=== PATIENT | female | born 1985 | race Caucasian/White ===

== ENCOUNTER 2016-04-15 11:59 | Inpatient (IN) | payer MEDICAID, OTHER ==
--- NOTE | 2016-04-15 12:39 | ED ---
Psychiatric Complaint - HPI Summary HPI Summary: Patient arrives to ED with voluntary admission of current SI and plan. Patient experiencing SI for several years with previous attempts with heroin OD most recently october and nov of last year. Today, SI are present with plans for suicide which include overdose or drowning. States she would likely take motrin for the OD. States she is experiencing knee pain with no known trauma. Would like Motrin. Stressors in her life have increased and was recently paroled from jail. Hep C positive, otherwise healthy. Smoker. Last use last evening includes heroin and cocaine. Last alcohol use "several months ago."Eating and drinking OK. Currently has no PCP or counselor. - History Of Current Complaint Chief Complaint: EDMentalHealth Hx Obtained From: Patient Hx Last Menstrual Period: 07/29/13 ?: No Onset/Duration: Gradual Onset Timing: Constant Severity Initially: Severe Severity Currently: Moderate Character: Depressed, Fearful, Anxious Aggravating Factor(s): Recent Stress Alleviating Factor(s): Nothing Related History: Positive For: Prior Psychiatric Issues - previous OD's Has Suicidal: Reports: Thoughts, With A Plan, Has Prior Attempt(s) - OD - Risk Factor(s) Completed Suicide Risk Factors: White [place], Living Alone, Unemployed, Past Suicide Attempt - Allergies/Home Medications Allergies/Adverse Reactions: Allergies Allergy/AdvReac Type Severity Reaction Status Date / Time No Known Allergies Allergy Verified 04/15/16 19:14 PMH/Surg Hx/FS Hx/Imm Hx Previously Healthy: Yes - Hep C positive Endocrine/Hematology History: Denies: Hx Diabetes, Hx Thyroid Disease, Hx Anemia Cardiovascular History: Denies: Hx Congestive Heart Failure, Hx Hypertension, Hx Pacemaker/ICD Respiratory History: Denies: Hx Asthma, Hx Chronic Bronchitis - had bronchitis twice, Hx Chronic Obstructive Pulmonary Disease (COPD) GI History: Reports: Other GI Disorders - Takes Protonix Denies: Hx Ulcer History: Reports: Hx Kidney Infection - at age 15 or so, not in years Denies: Hx Renal Disease Comment Only: Other Problems/Disorders - Recent UTI Musculoskeletal History: Reports: Other Musculoskeletal History - knees and foot have cartilage problems Sensory History: Reports: Hx Contacts or Glasses - a little nearsighted Denies: Hx Hearing Aid Opthamlomology History: Reports: Hx Contacts or Glasses - a little nearsighted Psychiatric History: Reports: Hx Attention Deficit Hyperactivity Disorder, Hx Depression, Hx Post Traumatic Stress Disorder, Hx Inpatient Treatment - Pt came from a dual diag facility as SW understands, Hx Substance Abuse Denies: Hx Eating Disorder, Hx Panic Disorder, Hx Suicide Attempt, Hx of Violent Episodes Against Others Infectious Disease History: Yes Infectious Disease History: Reports: Hx Hepatitis - type C Denies: Hx Human Immunodeficiency Virus (HIV), Traveled Outside the [place] in Last 30 Days - Family History Family History: PT IS UNRESPONSIVE - CANNOT STATE HISTORY - Social History Occupation: Unemployed Lives: Alone Alcohol Use: None Alcohol Amount: none that pt reports Substance Use Type: Reports: Cocaine, Heroin Substance Use Comment - Amount & Last Used: 1 week ago pt used "speed" Smoking Status (MU): Light Every Day Tobacco Smoker Type: Cigarettes Amount Used/How Often: 1/2 pack a day, formerly more Length of Time of Smoking/Using Tobacco: 13 years Have You Smoked in the Last Year: Yes Review of Systems Constitutional: Negative Eyes: Negative ENT: Negative Cardiovascular: Negative Respiratory: Negative Positive: Abdominal Pain - no known cause - chronic - worse when experiencing depression. Positive: Arthralgia - right knee pain Skin: Negative Positive: Headache - intermittent Positive: Anxious, Depressed All Other Systems Reviewed And Are Negative: Yes Physical Exam Triage Information Reviewed: Yes Vital Signs On Initial Exam: Initial Vitals Temp Pulse Resp BP Pulse Ox 96.8 F 76 20 118/80 100 04/15/16 12:00 04/15/16 12:00 04/15/16 12:00 04/15/16 12:00 04/15/16 12:00 Vital Signs Reviewed: Yes Appearance: Positive: Well-Appearing, No Pain Distress, Well-Nourished Skin: Positive: Warm, Dry Head/Face: Positive: Normal Head/Face Inspection, Temporal Artery Tenderness Eyes: Positive: Normal, EOMI, YOLANDA ENT: Positive: Normal ENT inspection, Hearing grossly normal, Pharynx normal, TMs normal Neck: Positive: Supple, Nontender, No Lymphadenopathy Respiratory/Lung Sounds: Positive: Clear to Auscultation, Breath Sounds Present Cardiovascular: Positive: Normal Abdomen Description: Positive: Nontender Musculoskeletal: Positive: Limited @ - right knee flexion - baseline per patient Psychiatric: Positive: Normal AVPU Assessment: Alert Diagnostics - Vital Signs Vital Signs Temp Pulse Resp BP Pulse Ox 04/15/16 12:00 96.8 F 76 20 118/80 100 - Laboratory Result Diagrams: 04/15/16 14:33 04/15/16 14:33 Lab Statement: Any lab studies that have been ordered have been reviewed, and results considered in the medical decision making process. Course/Dx - Differential Dx/Clinical Impression Differential Diagnosis/HQI/PQRI: Positive: Anxiety, Depression, Suicide Attempt , Suicidal Ideation, Suicidal Gesture Provider Diagnosis: Depression (emotion) Discharge - Discharge Plan Condition: Stable Disposition: ADMITTED TO [facility]
[2016-04-15] MEDS ORDERED: Naproxen TAB* 250 MG PO ONE (12:47)
[2016-04-15 14:41] LABS: Hematocrit 41 % (35-47); Hemoglobin 13.6 g/dl (12.0-16.0); Mean Corpuscular HGB Conc 33 g/dl (31-36); Mean Corpuscular Hemoglobin 32 pg (27-31); Mean Corpuscular Volume 96 fL (80-97); Mean Platelet Volume 9 um3 (7.4-10.4); Red Blood Count 4.28 10^6/ul (4.0-5.4); Red Cell Distribution Width 12 % (10.5-15); White Blood Count 12.2 10^3/ul (3.5-10.8)
[2016-04-15 14:59] LABS: ALT 44 U/L (7-52); AST 35 U/L (13-39); Alkaline Phosphatase 71 U/L (34-104); Anion Gap 9 mmol/L (2-11); Blood Urea Nitrogen 9 mg/dL (6-24); CO2 Carbon Dioxide 21 mmol/L (22-32); Calcium 9.2 mg/dL (8.6-10.3); Chloride 103 mmol/L (101-111); EGFR African American 127.6 (>60); EGFR Non-African American 99.2 (>60); Globulin 3.3 g/dL (2-4); Glucose 108 mg/dL (70-100); Potassium 3.6 mmol/L (3.5-5.0); Sodium 133 mmol/L (133-145); Total Protein 7.3 g/dL (6.4-8.9)
[2016-04-15 15:19] LABS: Acetaminophen < 15 mcg/mL; Alcohol < 10 mg/dL (<10); Salicylate < 2.50 mg/dL (<30)
[2016-04-15 15:30] LABS: Urine Bacteria Absent (Absent); Urine Bilirubin Negative (Negative); Urine Glucose Negative (Negative); Urine Nitrite Negative (Negative)
[2016-04-15 15:37] LABS: Benzodiazepine Urine Screen None Detected (None Detect)
[2016-04-15] MEDS ORDERED: Mouth Piece, Nicotine* 1 EACH CARTRIDGE ONE (16:05)
[2016-04-15] MEDS ORDERED: Nicotine Inhaler* 10 MG AMP ONE (16:05)
[2016-04-15] MEDS ORDERED: Acetaminophen TAB* 325 MG PO PRN (19:19)
[2016-04-15] MEDS ORDERED: Al Hydrox/Mg Hydrox/Simet LIQ* 30 ML UDC PO PRN (19:19)
[2016-04-15] MEDS ORDERED: Mouth Piece, Nicotine* 1 EACH CARTRIDGE INH ONE (20:00)
[2016-04-16] MEDS ORDERED: Loperamide CAP* 4 MG INITIAL PRN DOSE PO ONE (09:00)
[2016-04-16] MEDS ORDERED: ACETAMINOPHEN 650 MG PO (09:00)
[2016-04-16] MEDS ORDERED: Loperamide CAP* 2 MG AFTER EACH LOOSE STOOL MDD 16 MG PO PRN (09:00)
[2016-04-16] MEDS ORDERED: Q4H PRN PO (09:00)
[2016-04-16] MEDS: Vitamin THERAPEUTIC TAB PO SCH (09:40)
[2016-04-16] MEDS: Multivitamins/Minerals TAB* DAILY PO SCH (12:03)
[2016-04-16] MEDS: Carisoprodol TAB* 350 MG Q6H PRN PO ×2 (12:07→18:19)
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
[2016-04-16] MEDS ORDERED: Gabapentin CAP(*) 300 MG PO ONE (16:00)
[2016-04-16] MEDS: Gabapentin CAP(*) 300 MG PO SCH ×2 (16:19→20:59)
[2016-04-16] MEDS: FLUoxetine CAP* 20 MG PO SCH (16:19)
[2016-04-16] MEDS: Ibuprofen TAB* 400 MG Q6H PRN PO (16:20)
[2016-04-16] MEDS: diPHENhydraMINE PO* 50 MG PO PRN (21:00)
[2016-04-17] MEDS: Gabapentin CAP(*) 300 MG PO SCH ×3 (08:25→20:14)
[2016-04-17] MEDS: FLUoxetine CAP* 20 MG PO SCH (08:25)
[2016-04-17] MEDS: Multivitamins/Minerals TAB* DAILY PO SCH (08:25)
[2016-04-17] MEDS: Nicotine Inhaler* 10 MG AMP INH PRN (08:27)
[2016-04-17] MEDS: Carisoprodol TAB* 350 MG Q6H PRN PO ×3 (08:27→21:12)
[2016-04-17] MEDS: Ibuprofen TAB* 400 MG Q6H PRN PO ×2 (08:28→21:12)
[2016-04-17] MEDS: Nicotine GUM* 2 MG PO PRN ×3 (12:27→21:14)
[2016-04-17] MEDS: Vitamin THERAPEUTIC TAB PO SCH (13:20)
[2016-04-17] MEDS: diPHENhydraMINE PO* 50 MG PO PRN (20:16)
[2016-04-18] MEDS: FLUoxetine CAP* 20 MG PO SCH (08:24)
[2016-04-18] MEDS: Gabapentin CAP(*) 300 MG PO SCH (08:24)
[2016-04-18] MEDS: Vitamin THERAPEUTIC TAB PO SCH (08:24)
[2016-04-18] MEDS: Nicotine GUM* 2 MG PO PRN ×4 (08:24→21:44)
[2016-04-18] MEDS: Carisoprodol TAB* 350 MG Q6H PRN PO ×3 (08:25→20:38)
[2016-04-18] MEDS: Multivitamins/Minerals TAB* DAILY PO SCH (08:25)
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
[2016-04-18] MEDS: Ibuprofen TAB* 400 MG Q6H PRN PO ×2 (13:03→20:39)
[2016-04-18] MEDS: Gabapentin CAP(*) 400 MG PO SCH ×2 (14:31→20:38)
[2016-04-18] MEDS: Nicotine Inhaler* 10 MG AMP INH PRN (17:53)
[2016-04-18] MEDS: diPHENhydraMINE PO* 50 MG PO PRN (20:37)
[2016-04-19] MEDS: Nicotine GUM* 2 MG PO PRN ×2 (04:56→08:33)
[2016-04-19] MEDS: Nicotine Inhaler* 10 MG AMP INH PRN (08:32)
[2016-04-19] MEDS: Vitamin THERAPEUTIC TAB PO SCH (08:33)
[2016-04-19] MEDS: Gabapentin CAP(*) 400 MG PO SCH (08:33)
[2016-04-19] MEDS: FLUoxetine CAP* 20 MG PO SCH (08:33)
[2016-04-19] MEDS: Multivitamins/Minerals TAB* DAILY PO SCH (08:33)
[2016-04-19] MEDS: Carisoprodol TAB* 350 MG Q6H PRN PO (08:33)
[2016-04-19 09:37] VITALS: BP 122/70
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
--- NOTE | 2016-04-19 13:06 | PN ---
[facility]: Group Therapy Note - Service Type Service Type: 93514 Group Psychotherapy - Cognitive Behavioral Group Therapy ( CBT):Patient was attentive and participatory in CBT programming this morning, and remained in good behavioral control. Patient expressed positive insights regarding relevant treatment interventions and goals.
== END 2016-04-19 13:00 | DRG 773 ==
LOC: ED 11:59 → BSU 19:04
PROVIDERS: ADMIT Psychiatry & Neurology Psychiatry; ATTEND Psychiatry & Neurology Psychiatry
DX: F11.24 Opioid dependence with opioid-induced mood disorder (principal); F11.23 Opioid dependence with withdrawal
CPT/HCPCS: 36415; 80053; 80307; 80320; 80329; 81003; 81015; 84443; 85025; 87086; 90853; 99222; 99231; 99238; A9270-GY; G0480

== ENCOUNTER 2016-07-25 11:12 | Emergency (ER) | payer MEDICAID ==
[2016-07-25] MEDS ORDERED: NS 0.9% 1000 ML* 1,000 ML IV ONE (13:30)
[2016-07-25 13:59] LABS: Hematocrit 41 % (35-47); Hemoglobin 13.7 g/dl (12.0-16.0); Mean Corpuscular HGB Conc 34 g/dl (31-36); Mean Corpuscular Hemoglobin 31 pg (27-31); Mean Corpuscular Volume 92 fL (80-97); Mean Platelet Volume 8 um3 (7.4-10.4); Red Blood Count 4.44 10^6/ul (4.0-5.4); Red Cell Distribution Width 16 % (10.5-15); White Blood Count 10.9 10^3/ul (3.5-10.8)
[2016-07-25 14:16] LABS: ALT 13 U/L (7-52); AST 20 U/L (13-39); Albumin 3.9 g/dL (3.2-5.2); Alkaline Phosphatase 85 U/L (34-104); Amylase 93 U/L (29-103); Anion Gap 9 mmol/L (2-11); BUN/Creatinine Ratio 13.5 (8-20); Blood Urea Nitrogen 10 mg/dL (6-24); C Reactive Protein < 1.00 mg/L (< 5.00); CO2 Carbon Dioxide 24 mmol/L (22-32); Calcium 9.1 mg/dL (8.6-10.3); Chloride 105 mmol/L (101-111); Globulin 3.4 g/dL (2-4); Glucose 90 mg/dL (70-100); Lipase 31 U/L (11.0-82.0); Potassium 3.8 mmol/L (3.5-5.0); Sodium 138 mmol/L (133-145); Total Protein 7.3 g/dL (6.4-8.9)
[2016-07-25 14:18] LABS: Urine Bacteria 3+ (Absent); Urine Bilirubin Negative (Negative); Urine Glucose Negative (Negative); Urine Nitrite Positive (Negative)
[2016-07-25] MEDS ORDERED: Morphine INJ* 2 MG/ML 1 ML SYRINGE IV ONE (14:18)
[2016-07-25] MEDS ORDERED: Ondansetron INJ* 2 MG/ML VIAL IV ONE (14:18)
[2016-07-25] MEDS ORDERED: Ciprofloxacin TAB* 500 MG PO ONE (14:21)
--- NOTE | 2016-07-25 14:25 | ED ---
Abdominal Pain/Female - HPI Summary HPI Summary: Patient is a poor historian but essentially reports she had pain with intercourse 1.5 weeks ago, so [facility] went to [facility] where her pelvic exam was negative and tests were performed. She was placed on medication due to discharge and odor. At that time she had minimal vaginal bleeding, but since that time it has increased. Yesterday she used 4-5 super tampons. She feels that her appetite is decreased due to her pain. In addition to the bleeding she has suprapubic and RLQ abdominal pain that does not radiate. She denies urinary symptoms, diarrhea, constipation, or fevers. She has not been in contact with her PCP, Dr. Love. - History of Current Complaint Chief Complaint: EDOBProblems Stated Complaint: PELVIC PAIN/VAG BLEED Time Seen by Provider: 07/25/16 13:10 Hx Obtained From: Patient Hx Last Menstrual Period: 07/29/13 ?: No Onset/Duration: Gradual Onset Timing: Constant Severity Initially: Moderate Severity Currently: Severe Pain Intensity: 8 Location: Discrete At: RLQ, Suprapubic Radiates: No Character: Cramping Aggravating Factor(s): Nothing Alleviating Factor(s): Nothing Associated Signs and Symptoms: Positive: Decreased Appetite, Vaginal Bleeding Allergies/Adverse Reactions: Allergies Allergy/AdvReac Type Severity Reaction Status Date / Time No Known Allergies Allergy Verified 04/15/16 19:14 PMH/Surg Hx/FS Hx/Imm Hx Endocrine/Hematology History: Denies: Hx Diabetes, Hx Thyroid Disease, Hx Anemia Cardiovascular History: Denies: Hx Congestive Heart Failure, Hx Hypertension, Hx Pacemaker/ICD Respiratory History: Denies: Hx Asthma, Hx Chronic Bronchitis - had bronchitis twice, Hx Chronic Obstructive Pulmonary Disease (COPD) GI History: Reports: Other GI Disorders - Takes Protonix Denies: Hx Ulcer History: Reports: Hx Kidney Infection - at age 15 or so, not in years Denies: Hx Renal Disease Comment Only: Other Problems/Disorders - Recent UTI Musculoskeletal History: Reports: Other Musculoskeletal History - knees and foot have cartilage problems Sensory History: Reports: Hx Contacts or Glasses - a little nearsighted Denies: Hx Hearing Aid Opthamlomology History: Reports: Hx Contacts or Glasses - a little nearsighted Psychiatric History: Reports: Hx Attention Deficit Hyperactivity Disorder, Hx Depression, Hx Post Traumatic Stress Disorder, Hx Inpatient Treatment - Pt came from a dual diag facility as SW understands, Hx Substance Abuse Denies: Hx Eating Disorder, Hx Panic Disorder, Hx Suicide Attempt, Hx of Violent Episodes Against Others Infectious Disease History: No Infectious Disease History: Reports: Hx Hepatitis - type C Denies: Hx Human Immunodeficiency Virus (HIV), Traveled Outside the [place] in Last 30 Days - Family History Known Family History: Positive: None Family History: PT IS UNRESPONSIVE - CANNOT STATE HISTORY - Social History Occupation: Unemployed Lives: With Family Alcohol Use: None Alcohol Amount: none that pt reports Substance Use Type: Reports: Cocaine, Heroin Substance Use Comment - Amount & Last Used: 1 week ago pt used "speed" Smoking Status (MU): Light Every Day Tobacco Smoker Type: Cigarettes Amount Used/How Often: 1/2 pack a day, formerly more Length of Time of Smoking/Using Tobacco: 13 years Have You Smoked in the Last Year: Yes Cessation Counseling: Patient Advised to Stop Review of Systems Negative: Fever, Chills Negative: Chest Pain Negative: Shortness Of Breath Positive: Abdominal Pain. Negative: Vomiting, Diarrhea, Nausea Positive: no symptoms reported All Other Systems Reviewed And Are Negative: Yes Physical Exam Triage Information Reviewed: Yes Vital Signs On Initial Exam: Initial Vitals Temp Pulse Resp BP Pulse Ox 97.4 F 123 16 129/78 100 07/25/16 11:19 07/25/16 11:19 07/25/16 11:19 07/25/16 11:19 07/25/16 11:19 Vital Signs Reviewed: Yes Appearance: Positive: Well-Appearing, Well-Nourished, Pain Distress Skin: Positive: Warm, Skin Color Reflects Adequate Perfusion, Dry, Soft Head/Face: Positive: Normal Head/Face Inspection Eyes: Positive: EOMI, YOLANDA, Conjunctiva Clear ENT: Positive: Hearing grossly normal Respiratory/Lung Sounds: Positive: Clear to Auscultation, Breath Sounds Present Cardiovascular: Positive: RRR - on exam Abdomen Description: Positive: Soft. Negative: Nontender - TTP RLQ and suprapubic, CVA Tenderness (R), CVA Tenderness (L), Distended, Guarding, McBurney's Point Tenderness, Pulsatile Mass Bowel Sounds: Positive: Present Musculoskeletal: Negative: Edema Left, Edema Right Neurological: Positive: Sensory/Motor Intact, Alert, Oriented to Person Place, Time, [place] Bundle Intact Distally, Normal Gait Psychiatric: Positive: Affect/Mood Appropriate AVPU Assessment: Alert - [place] Coma Scale Coma Scale Total: 15 Diagnostics - Vital Signs Vital Signs Temp Pulse Resp BP Pulse Ox 07/25/16 12:07 98.2 F 66 16 135/84 100 07/25/16 11:22 97.4 F 58 16 129/78 100 07/25/16 11:19 97.4 F 123 16 129/78 100 - Laboratory Lab Results: Lab Results 07/25/16 07/25/16 Range/Units 13:48 13:48 WBC 10.9 H (3.5-10.8) 10^3/ul RBC 4.44 (4.0-5.4) 10^6/ul Hgb 13.7 (12.0-16.0) g/dl Hct 41 (35-47) % MCV 92 (80-97) fL MCH 31 (27-31) pg MCHC 34 (31-36) g/dl RDW 16 H (10.5-15) % Plt Count 299 (150-450) 10^3/ul MPV 8 (7.4-10.4) um3 Neut % (Auto) 48.9 (38-83) % Lymph % (Auto) 40.2 (25-47) % [place] % (Auto) 9.7 H (1-9) % Eos % (Auto) 0.8 (0-6) % Baso % (Auto) 0.4 (0-2) % Absolute Neuts (auto) 5.3 (1.5-7.7) 10^3/ul Absolute Lymphs (auto) 4.4 (1.0-4.8) 10^3/ul Absolute Monos (auto) 1.1 H (0-0.8) 10^3/ul Absolute Eos (auto) 0.1 (0-0.6) 10^3/ul Absolute Basos (auto) 0 (0-0.2) 10^3/ul Absolute Nucleated RBC 0 10^3/ul Nucleated RBC % 0 INR (Anticoag Therapy) 0.77 L (0.89-1.11) Result Diagrams: 07/25/16 13:48 07/25/16 13:48 Lab Statement: Any lab studies that have been ordered have been reviewed, and results considered in the medical decision making process. - Ultrasound No standard instances Ultrasound Interpretation: No Acute Changes Ultrasound Interpretation Completed By: Radiologist Re-Evaluation - Re-Evaluation First Eval Re-Evaluation Time: 15:10 Change: Improved - pain improved and patient is asking for food Abdominal Pain Fem Course/Dx - Course Course Of Treatment: The patient's tests are negative for acute changes. She will be treated for her UTI and referred to her [facility] for follow-up care for her vaginal bleeding. While at this appointment she asked for a refill of her gabapentin, which I referred her back to the prescribing physician. She also asked for a muscle relaxer for her abdominal cramps, which I declined to fill, but did prescribe naproxen for pain. - Diagnoses Differential Diagnosis: Positive: Appendicitis, Bowel Obstruction, Ectopic , Ovarian Cyst, Pelvic Inflammatory Disease, , Urinary Tract Infection Provider Diagnoses: UTI (urinary tract infection), Vaginal bleeding Discharge - Discharge Plan Condition: Stable Disposition: HOME Prescriptions: Naproxen [Naproxen 500 MG TABS] 500 mg PO BID PRN #10 tab PRN Reason: Pain Nicotine PATCH 14 MG/24 HR* 14 mg TRANSDERM DAILY #5 patch Ondansetron HCl [Zofran 4 MG TAB] 4 mg PO TID PRN #15 tab PRN Reason: Nausea Patient Education Materials: Dysfunctional Uterine Bleeding (ED) Additional Instructions: Call the provider who prescribed your control for an appointment in 1-2 days to discuss today's visits and your concerns. Use medication provided to help stop smoking, and to manage pain and nausea. Return to the emergency department if symptoms worsen.
--- NOTE | 2016-07-25 15:20 | RAD ---
Indication: Vaginal bleeding. Negative test. Comparison: November 08, 2013 CT and May 23, 2012 ultrasound. Technique: Transvaginal pelvic ultrasound. Report: Unremarkable 8.7 x 3.7 x 4.6 cm anteverted uterus. 1.9 mm endometrium. Negative for free pelvic fluid. 2.2 x 1.2 x 2.0 cm RIGHT ovary with documented vascular flow is remarkable for small follicles only. 2.5 x 1.0 x 1.6 cm LEFT ovary with documented vascular flow is remarkable for small follicles only. No visualized extra ovarian adnexal region lesions evident. IMPRESSION: Negative pelvic ultrasound.
[2016-07-25 15:58] VITALS: BP 132/80
== END 2016-07-25 15:57 | disposition home or self-care (01) ==
LOC: ED 11:12
DX: N39.0 Urinary tract infection, site not specified (principal); N93.9 Abnormal uterine and vaginal bleeding, unspecified; R10.31 Right lower quadrant pain; F17.210 Nicotine dependence, cigarettes, uncomplicated
CPT/HCPCS: 36415; 76830; 80053; 81003; 81015; 82150; 83690; 84702; 85025; 85610; 86140; 87077; 87086; 87186; 96374; 96375; 99282; A9270-GY; J2270; J2405

== ENCOUNTER 2017-05-24 08:28 | Emergency (ER) | payer OTHER ==
--- OUTSIDE RECORDS SUMMARY | 2017-05-24 08:36 | XMS REPORT ---
:1985 External Reference #:[id number] Author Organization [id number] Address [address] [address] Phone [phone] Care Team Providers Name Role Phone Vinod Washington MD Primary Care Physician Unavailable Payers Type Date Identification Numbers Payment Provider Subscriber Medicaid Policy Number: [id number] Medicaid Elias [employer]uns[employer] Name: 1 1 [address] PayID: [id number] [place] [address] Commercial Effective: 2016 Policy Number: [id number] Troy Lunsforderman PayID: [id number] [address] [place] [address] Problems Date Description Provider Status Onset: 05/05/2016 History of drug abuse Prasanna Michele NP Active Onset: 05/05/2016 Idiopathic peripheral neuropathy Prasanna Michele NP Active Onset: 05/05/2016 Depressive disorder Prasanna Michele NP Active Onset: 06/30/2016 Viral hepatitis C Janis Angel M.D., FACP Onset: 06/30/2016 Opioid dependence in remission Janis Angel M.D., FACP Onset: 08/01/2016 Vitamin B12 deficiency (non Vinod Washington Active anemic) RENATO Aly Onset: 09/15/2016 Attention deficit hyperactivity Vinod Washington, Active disorder, combined type RENATO Aly Onset: 09/15/2016 Light cigarette smoker (1-9 Vinod Washington, Active cigs/day) RENATO Aly Family History Date Family Member(s) Problem(s) Comments Father Lung Cancer Mother due to Stroke () Siblings 3 3 half-sibs Social History Type Date Description Comments Marital Status Significant Other Lives With Male Partner Occupation 12/26/2016 Currently Working [employer] Cigarette Use Current Cigarette Smoker 5-10 Cigarettes Daily ETOH Use Denies alcohol use Smoking Patient is a current Started age 15; Smokes smoker, smokes every day 1/2 ppd Recreational Drug Use Denies Drug Use Exercise Type/Frequency Exercises rarely General Hx Text no kids Allergies, Adverse Reactions, Alerts Date Description Reaction Status Severity Comments 05/02/2016 NKDA active Medications Medication Date Status Form Strength Qnty SIG Indications Ordering Provider Triamcinolone 04/21 Active Cream 0.1% 30gm apply every Acetonide day as needed emanuel Morales M.D.,FACP lesion Lamotrigine 04/21 Active Tablets 100mg 30tab 1 by mouth Dispers s every evening Shelley Washington M.D.,FACP Colace 04/21 Active Capsules 100mg 60cap 1 by mouth s twice a day Shelley Washington M.D.,FACP Nicotine 04/07 Active Gum 2mg 100un 1 piece every its 2 hours as SOPHIE Michele needed. Naproxen 04/07 Active Tablets 500mg 60tab 1 tablet with M25.50 s food by mouth Shelley Washington, up to twice a M.D.,FACP day as needed. Vistaril 04/07 Active Capsules 25mg 60cap 1-2 by mouth F41.9 Prasanna s four times Ryne 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 daily as needed anxiety/insomn ia Gabapentin 01/31 Active Capsules 300mg 120ca Take 1 Capsule G60.3 ps By Mouth Twice Shelley Washington, A Day Plus 2 M.D.,FACP At Bedtime Omeprazole 12/26 Active Capsules 20mg 90cap [address] fitzgerald every day Shelley Washington M.D.,FACP Suboxone 12/26 Active Film 8-2mg 28uni 1 strip sl ts twice day Shelley Washington M.D.,FACP Benzoyl 10/25 Active Gel 5% 90gm topical qd L70.0 /2017 Shelley Washington M.D.,[facility] Mupirocin 08/22 Active Cream 2% 15gm apply two A49.02 Vinod times daily to Shelley Washington, areas of [place] blister[facility] skin Cyanocobalamin 08/01 Active Solution 1000mcg/M 6ml 1 milliliters L intramuscular Shelley Washington, z9xuhko [place],[facility] Multivitamin 08/01 Active Tablets 30tab 1 by mouth Vinod s every day Shelley Washington M.D.,[facility] Lamotrigine 01/31 Hx Tablets 25mg 120ta 1 po qhs for 1 Vinod bs wk, then 2 qhs Shelley Washington, - for 1 wk, then MKoreyDKorey,[facility] 04/21 3 qhs, then qhs ongoing Nicotrol 01/31 Hx Inhaler 10mg 168un 1 cartridges its every 2 hours Shelley Washington, - as needed M.D.,[facility] 04/07 Sulfamethoxazol 12/01 Hx Tablets 800-160mg 10tab by mouth twice Debby Paz e/Trimethoprim s a day Shelley Washington DS - [place],[facility] 12/06 Bupropion HCL 10/17 Hx Tablets 100mg 60tab 1 by mouth Vinod ER (SR) ER 12HR s every morning Shelley Washington, - for 10 days, [place] 01/31 then take tablet by mouth every morning and one at noon [employer] 10/17 Hx Gel 0.025% 45gm apply every L70.0 night at Shelley Washington, - bedtime for 3 M.D.,[facility] 10/25 wks then needed Melatonin ER 09/23 Hx Tablets 5mg 30tab 1 by mouth G47.00 ER s every night at Shelley Washington, - bedtime M.DKorey,[facility] 10/17 Eszopiclone 09/15 Hx Tablets 2mg 20tab 1 tab by mouth G47.00 s every night at Shelley Washington, - bedtime as [place],[facility] 09/23 needed Doxycycline 08/22 Hx Capsules 100mg 14cap twice a day by A49.02 Debby Paz Hyclate /2016 s mouth Uche Morales M.D.,[facility] 08/29 Gabapentin 08/22 Hx Tablets 800mg 90tab take 1 tablet G60.3 s by mouth 3 Shelley Washington, - times a day [place],[facility] 01/31 Suboxone 08/01 Hx Film 12-3mg 10uni 1/2 strip sl ts once a day Uche Morales M.D.,[facility] 12/26 Gabapentin 06/30 Hx Tablets 600mg 150ta 1 by mouth 3 G60.3 bs times a day Shelley Washington - plus 2 qhs [place],[facility] 08/22 Citalopram 06/30 Hx Tablets 20mg 30tab 1 by mouth Vinod Hydrobromide /2016 s every day Uche Morales M.D.,[facility] 08/22 Suboxone 06/30 Hx Film 4-1mg 7unit once sl daily s Uche Morales M.D.,[facility] 08/01 Gabapentin 05/02 Hx Capsules 300mg 90cap 2 by mouth G60.3 Prasanna s three times a 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, 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 - 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 06/30 Prozac Hx Capsules 20mg 1 by mouth Unknown /0000 every day - 06/30 Ortho 00 Hx Tablets 0.18/0.21 1 by mouth Unknown Tri-Cyclen Lo /0000 5/0.25 every day - mg-25 mcg 08/01 Norgestimate-Et Hx Tablets 0.25-35mg 1 by mouth Unknown h Estradiol /0000 -mcg every day - 10/17 Medications Administered in Office Medication Date Status Form Strength Qnty SIG Indications Ordering Provider B-12 Injection Administered Injection Vinod Washington M.D.,[facility] B-12 Injection Administered Injection Vinod Washington M.D.,FACP B12 Provided Administered Injection Vinod By Patient 017 Shelley Washington M.D.,FACP B-12 Injection Administered Injection Vinod 017 Shelley Washington M.D.,FACP B-12 Injection Administered Injection Vinod 017 Shelley Washington M.D.,FACP Vital Signs Date Vital Result Comment 04/21/2017 Weight 119.00 lb Heart Rate 83 /min BP Systolic 117 mmHg BP Diastolic 60 mmHg Body Temperature 97.0 F O2 % BldC Oximetry 97 % 04/07/2017 Weight 113.50 lb Heart Rate 79 /min BP Systolic 118 mmHg BP Diastolic 60 mmHg Body Temperature 98.4 F O2 % BldC Oximetry 98 % 01/31/2017 Weight 119.00 lb Heart Rate 60 /min BP Systolic Sitting 112 mmHg BP Diastolic Sitting 60 mmHg Body Temperature 97.5 F O2 % BldC Oximetry 99 % 12/26/2016 Weight 118.00 lb Heart Rate 60 /min BP Systolic Sitting 110 mmHg BP Diastolic Sitting 68 mmHg Body Temperature 97.4 F O2 % BldC Oximetry 98 % 10/17/2016 Height 59 inches 4'11" Weight 121.00 lb Heart Rate 93 /min BP Systolic 118 mmHg BP Diastolic 72 mmHg Body Temperature 97.5 F O2 % BldC Oximetry 95 % BMI (Body Mass Index) 24.4 kg/m2 09/15/2016 Weight 122.38 lb Heart Rate 88 /min BP Systolic Sitting 120 mmHg BP Diastolic Sitting 60 mmHg Body Temperature 97.8 F O2 % BldC Oximetry 97 % 08/22/2016 Weight 125.12 lb Heart Rate 78 /min BP Systolic Sitting 120 mmHg BP Diastolic Sitting 74 mmHg Body Temperature 99.0 F O2 % BldC Oximetry 98 % 08/01/2016 Weight 126.50 lb Heart Rate 80 /min BP Systolic 112 mmHg BP Diastolic 64 mmHg Body Temperature 97.2 F O2 % BldC Oximetry 98 % 06/30/2016 Height 58.75 inches 4'10.75" Weight 118.38 lb Heart Rate 100 /min BP Systolic Sitting 102 mmHg BP Diastolic Sitting 58 mmHg Body Temperature 99.2 F O2 % BldC Oximetry 99 % BMI (Body Mass Index) 24.1 kg/m2 05/02/2016 Height 58.75 inches 4'10.75" Weight 124.00 lb Heart Rate 70 /min BP Systolic Sitting 108 mmHg BP Diastolic Sitting 54 mmHg Body Temperature 97.6 F O2 % BldC Oximetry 97 % BMI (Body Mass Index) 25.3 kg/m2 Results Test Date Test Result H/L Range Note Comp Metabolic Panel 04/14/2017 Sodium 139 mmol/L 133-145 Potassium 4.6 mmol/L 3.5-5.0 Chloride 107 mmol/L 101-111 Co2 Carbon Dioxide 28 mmol/L 22-32 Anion Gap 4 mmol/L 2-11 Glucose 83 mg/dL 70-100 Blood Urea Nitrogen 17 mg/dL 6-24 Creatinine 0.85 mg/dL 0.51-0.95 BUN/Creatinine Ratio 20.0 8-20 Calcium 9.4 mg/dL 8.6-10.3 Total Protein 6.2 g/dL Low 6.4-8.9 Albumin 3.9 g/dL 3.2-5.2 Globulin 2.3 g/dL 2-4 Albumin/Globulin Ratio 1.7 1-3 Total Bilirubin 0.30 mg/dL 0.2-1.0 Alkaline Phosphatase 63 U/L 34-104 Alt 27 U/L 7-52 Ast 29 U/L 13-39 Egfr Non- 77.5 >60 Egfr 99.7 >60 1 CBC Auto Diff 04/14/2017 White Blood Count 7.4 10^3/uL 3.5-10.8 Red Blood Count 3.86 10^6/uL Low 4.0-5.4 Hemoglobin 12.7 g/dL 12.0-16.0 Hematocrit 37 % 35-47 Mean Corpuscular Volume 96 fL 80-97 Mean Corpuscular Hemoglobin 33 pg High 27-31 Mean Corpuscular HGB Conc 34 g/dL 31-36 Red Cell Distribution Width 12 % 10.5-15 Platelet Count 255 10^3/uL 150-450 Mean Platelet Volume 10 um3 7.4-10.4 Abs Neutrophils 3.2 10^3/uL 1.5-7.7 Abs Lymphocytes 3.2 10^3/uL 1.0-4.8 Abs Monocytes 0.7 10^3/uL 0-0.8 Abs Eosinophils 0.3 10^3/uL 0-0.6 Abs Basophils 0 10^3/uL 0-0.2 Abs Nucleated RBC 0 10^3/uL Granulocyte % 42.7 % 38-83 Lymphocyte % 44.0 % 25-47 Monocyte % 9.1 % High 1-9 Eosinophil % 3.6 % 0-6 Basophil % 0.6 % 0-2 Nucleated Red Blood Cells % 0 Laboratory test finding 04/14/2017 TSH (Thyroid Stim Horm) 0.65 mcIU/mL 0.34-5.60 Lyme Disease Serology Negative Negative 2 Vitamin B12 207 pg/mL 180-914 3 Drug Abuse 20 Urine 01/31/2017 Urine Amphetamine Negative ng/mL 4 Urine Barbiturates Negative ng/mL 5 Urine Benzodiazepines Negative ng/mL 6 Urine Cocaine Negative ng/mL 7 Urine Phencyclidine Negative ng/mL Cutoff: 25 Urine Tetrahydrocannabinol Presumptive Posi <SEE NOTE> Cutoff: 50 8 ng/mL Creatinine, Urine 116.5 mg/dL Specific [place] 1.011 pH 8.0 Oxidants Negative 9 Adulterants Comment Normal Codeine, Ur Not Detected ng/mL Cutoff: 25 10 Vgjtvij-3-bxxc-glucuronide, Ur Not Detected ng/mL 11 Morphine, Ur Not Detected ng/mL Cutoff: 25 12 Xdpktudz-2-kixl-glucuronide, U Not Detected ng/mL 13 6-monoacetylmorphine, Ur Not Detected ng/mL Cutoff: 25 14 Hydrocodone, Ur Not Detected ng/mL Cutoff: 25 15 Norhydrocodone, Ur Not Detected ng/mL Cutoff: 25 16 Dihydrocodeine, Ur Not Detected ng/mL Cutoff: 25 17 Hydromorphone, Ur Not Detected ng/mL Cutoff: 25 18 Rsqmsljhwhupq5ruljqubzcsrvvpw Not Detected ng/mL 19 Oxycodone, Ur Not Detected ng/mL Cutoff: 25 20 Noroxycodone, Ur Not Detected ng/mL Cutoff: 25 21 Oxymorphone, Ur Not Detected ng/mL Cutoff: 25 22 Hkmteirtole-1-cwsc-glucuronide Not Detected ng/mL 23 Noroxymorphone, Ur Not Detected ng/mL Cutoff: 25 24 Fentanyl, Ur Not Detected ng/mL Cutoff: 2 25 Norfentanyl, Ur Not Detected ng/mL Cutoff: 2 26 Meperidine, Ur Not Detected ng/mL Cutoff: 25 27 Normeperidine, Ur Not Detected ng/mL Cutoff: 25 28 Naloxone, Ur Not Detected ng/mL Cutoff: 25 29 Eitgkbfj-9-uvne-glucuronide, U Present ng/mL 30 Methadone, Ur Not Detected ng/mL Cutoff: 25 31 Eddp, Ur Not Detected ng/mL Cutoff: 25 32 Propoxyphene, Ur Not Detected ng/mL Cutoff: 25 33 Norpropoxyphene, Ur Not Detected ng/mL Cutoff: 25 34 Tramadol, Ur Not Detected ng/mL Cutoff: 25 35 O-desmethyltramadol, Ur Not Detected ng/mL Cutoff: 25 36 Tapentadol, Ur Not Detected ng/mL Cutoff: 25 37 N-desmethyltapentadol, Ur Not Detected ng/mL Cutoff: 50 38 Fdkpaafeml-atlj-jakhfzkymev, U Not Detected ng/mL 39 Buprenorphine, Ur Not Detected ng/mL Cutoff: 5 40 Norbuprenorphine, Ur Present ng/mL Cutoff: 5 41 Norbuprenorphine glucuronide Present ng/mL Cutoff: 20 42 Opioid Interpretation See Comment 43 THC Confirmation Urine 01/31/2017 Urine Carboxy THC Confirm >500.0 ng/mL 44 Urine THC Interpretation Positive. 45 Laboratory test finding 12/26/2016 Vitamin B12 > 1450 pg/mL High 180- 914 46 CBC Auto Diff 12/26/2016 White Blood Count 9.4 10^3/uL 3.5-10.8 Red Blood Count 4.06 10^6/uL 4.0-5.4 Hemoglobin 13.5 g/dL 12.0-16.0 Hematocrit 39 % 35-47 Mean Corpuscular Volume 96 fL 80-97 Mean Corpuscular Hemoglobin 33 pg High 27-31 Mean Corpuscular HGB Conc 35 g/dL 31-36 Red Cell Distribution Width 13 % 10.5-15 Platelet Count 260 10^3/uL 150-450 Mean Platelet Volume 9 um3 7.4-10.4 Abs Neutrophils 4.1 10^3/uL 1.5-7.7 Abs Lymphocytes 4.4 10^3/uL 1.0-4.8 Abs Monocytes 0.8 10^3/uL 0-0.8 Abs Eosinophils 0.1 10^3/uL 0-0.6 Abs Basophils 0 10^3/uL 0-0.2 Abs Nucleated RBC 0.01 10^3/uL Granulocyte % 43.9 % 38-83 Lymphocyte % 46.2 % 25-47 Monocyte % 8.5 % 1-9 Eosinophil % 1.0 % 0-6 Basophil % 0.4 % 0-2 Nucleated Red Blood Cells % 0.1 Comp Metabolic Panel 12/26/2016 Sodium 136 mmol/L 133-145 Potassium 4.0 mmol/L 3.5-5.0 Chloride 103 mmol/L 101-111 Co2 Carbon Dioxide 26 mmol/L 22-32 Anion Gap 7 mmol/L 2-11 Glucose 84 mg/dL 70-100 Blood Urea Nitrogen 9 mg/dL 6-24 Creatinine 0.71 mg/dL 0.51-0.95 BUN/Creatinine Ratio 12.7 8-20 Calcium 9.4 mg/dL 8.6-10.3 Total Protein 6.8 g/dL 6.4-8.9 Albumin 4.2 g/dL 3.2-5.2 Globulin 2.6 g/dL 2-4 Albumin/Globulin Ratio 1.6 1-3 Total Bilirubin 0.50 mg/dL 0.2-1.0 Alkaline Phosphatase 65 U/L 34-104 Alt 40 U/L 7-52 Ast 40 U/L High 13-39 Egfr Non- 95.4 >60 Egfr 122.7 >60 47 Urinalysis Profile 11/30/2016 Urine Color Yellow Urine Appearance Cloudy Urine Specific [place] 1.014 1.010-1.030 Urine pH 7.0 5-9 Urine Urobilinogen Negative Negative Urine Ketones Negative Negative Urine Protein Negative Negative Urine Leukocytes Trace Negative Urine Blood Negative Negative Urine Nitrite Negative Negative Urine Bilirubin Negative Negative Urine Glucose Negative Negative Urine White Blood Cell Trace(0-5/hpf) Absent Urine Red Blood Cell Absent Absent Urine Bacteria 1+ Absent Urine Squamous Epithelial Cell Present Absent Urine Culture And Sensitivities 11/30/2016 Urine Culture SEE RESULT BELOW 48 Drug Abuse 20 Urine 11/30/2016 Urine Amphetamine Negative ng/mL 49 Urine Barbiturates Negative ng/mL 50 Urine Benzodiazepines Negative ng/mL 51 Urine Cocaine Negative ng/mL 52 Urine Phencyclidine Negative ng/mL Cutoff: 25 Urine Tetrahydrocannabinol Presumptive Posi <SEE NOTE> Cutoff: 50 53 ng/mL Creatinine, Urine 131.6 mg/dL Specific [place] 1.008 pH 7.8 Oxidants Negative 54 Adulterants Comment Normal Codeine, Ur Not Detected ng/mL Cutoff: 25 55 Pxbeomf-5-sjlm-glucuronide, Ur Not Detected ng/mL 56 Morphine, Ur Not Detected ng/mL Cutoff: 25 57 Xlplydkk-7-rlks-glucuronide, U Not Detected ng/mL 58 6-monoacetylmorphine, Ur Not Detected ng/mL Cutoff: 25 59 Hydrocodone, Ur Not Detected ng/mL Cutoff: 25 60 Norhydrocodone, Ur Not Detected ng/mL Cutoff: 25 61 Dihydrocodeine, Ur Not Detected ng/mL Cutoff: 25 62 Hydromorphone, Ur Not Detected ng/mL Cutoff: 25 63 Yvdbajkowngad3yyocxfpivdikpmk Not Detected ng/mL 64 Oxycodone, Ur Not Detected ng/mL Cutoff: 25 65 Noroxycodone, Ur Not Detected ng/mL Cutoff: 25 66 Oxymorphone, Ur Not Detected ng/mL Cutoff: 25 67 Tvbzqqhurpv-2-oimv-glucuronide Not Detected ng/mL 68 Noroxymorphone, Ur Not Detected ng/mL Cutoff: 25 69 Fentanyl, Ur Not Detected ng/mL Cutoff: 2 70 Norfentanyl, Ur Not Detected ng/mL Cutoff: 2 71 Meperidine, Ur Not Detected ng/mL Cutoff: 25 72 Normeperidine, Ur Not Detected ng/mL Cutoff: 25 73 Naloxone, Ur Not Detected ng/mL Cutoff: 25 74 Xdelpzkl-4-dnic-glucuronide, U Present ng/mL 75 Methadone, Ur Not Detected ng/mL Cutoff: 25 76 Eddp, Ur Not Detected ng/mL Cutoff: 25 77 Propoxyphene, Ur Not Detected ng/mL Cutoff: 25 78 Norpropoxyphene, Ur Not Detected ng/mL Cutoff: 25 79 Tramadol, Ur Not Detected ng/mL Cutoff: 25 80 O-desmethyltramadol, Ur Not Detected ng/mL Cutoff: 25 81 Tapentadol, Ur Not Detected ng/mL Cutoff: 25 82 N-desmethyltapentadol, Ur Not Detected ng/mL Cutoff: 50 83 Fcwcdxevkq-ejlg-pbwimyggqtx, U Not Detected ng/mL 84 Buprenorphine, Ur Not Detected ng/mL Cutoff: 5 85 Norbuprenorphine, Ur Present ng/mL Cutoff: 5 86 Norbuprenorphine glucuronide Present ng/mL Cutoff: 20 87 Opioid Interpretation See Comment 88 THC Confirmation Urine 11/30/2016 Urine Carboxy THC Confirm >500.0 ng/mL 89 Urine THC Interpretation Positive. 90 THC Confirmation Urine 09/15/2016 Urine Carboxy THC Confirm >500.0 ng/mL 91 Urine THC Interpretation Positive. 92 Drug Abuse 20 Urine 09/15/2016 Urine Amphetamine Negative ng/mL 93 Urine Barbiturates Negative ng/mL 94 Urine Benzodiazepines Negative ng/mL 95 Urine Cocaine Negative ng/mL 96 Urine Phencyclidine Negative ng/mL Cutoff: 25 Urine Tetrahydrocannabinol Presumptive Posi <SEE NOTE> Cutoff: 50 97 ng/mL Creatinine, Urine 90.9 mg/dL Specific [place] 1.013 pH 7.5 Oxidants Negative 98 Adulterants Comment Normal Codeine, Ur Not Detected ng/mL Cutoff: 25 99 Jcukuke-5-vpng-glucuronide, Ur Not Detected ng/mL 100 Morphine, Ur Not Detected ng/mL Cutoff: 25 101 Sjceofle-2-ehyq-glucuronide, U Not Detected ng/mL 102 6-monoacetylmorphine, Ur Not Detected ng/mL Cutoff: 25 103 Hydrocodone, Ur Not Detected ng/mL Cutoff: 25 104 Norhydrocodone, Ur Not Detected ng/mL Cutoff: 25 105 Dihydrocodeine, Ur Not Detected ng/mL Cutoff: 25 106 Hydromorphone, Ur Not Detected ng/mL Cutoff: 25 107 Qokjqpbcfrwyz1tzvlnrljuiffafg Not Detected ng/mL 108 Oxycodone, Ur Not Detected ng/mL Cutoff: 25 109 Noroxycodone, Ur Not Detected ng/mL Cutoff: 25 110 Oxymorphone, Ur Not Detected ng/mL Cutoff: 25 111 Hnteyurldcp-1-krxf-glucuronide Not Detected ng/mL 112 Noroxymorphone, Ur Not Detected ng/mL Cutoff: 25 113 Fentanyl, Ur Not Detected ng/mL Cutoff: 2 114 Norfentanyl, Ur Not Detected ng/mL Cutoff: 2 115 Meperidine, Ur Not Detected ng/mL Cutoff: 25 116 Normeperidine, Ur Not Detected ng/mL Cutoff: 25 117 Naloxone, Ur Not Detected ng/mL Cutoff: 25 118 Xgevougm-7-pdms-glucuronide, U Present ng/mL 119 Methadone, Ur Not Detected ng/mL Cutoff: 25 120 Eddp, Ur Not Detected ng/mL Cutoff: 25 121 Propoxyphene, Ur Not Detected ng/mL Cutoff: 25 122 Norpropoxyphene, Ur Not Detected ng/mL Cutoff: 25 123 Tramadol, Ur Not Detected ng/mL Cutoff: 25 124 O-desmethyltramadol, Ur Not Detected ng/mL Cutoff: 25 125 Tapentadol, Ur Not Detected ng/mL Cutoff: 25 126 N-desmethyltapentadol, Ur Not Detected ng/mL Cutoff: 50 127 Xgyuamupsp-ssrf-vkymqetbpvv, U Not Detected ng/mL 128 Buprenorphine, Ur Not Detected ng/mL Cutoff: 5 129 Norbuprenorphine, Ur Present ng/mL Cutoff: 5 130 Norbuprenorphine glucuronide Present ng/mL Cutoff: 20 131 Opioid Interpretation See Comment 132 Laboratory test finding 09/15/2016 Test Urine neg Drug Abuse 20 Urine 08/01/2016 Urine Amphetamine Negative ng/mL 133, 134 Urine Barbiturates Negative ng/mL 133, 135 Urine Benzodiazepines Negative ng/mL 133, 136 Urine Cocaine Negative ng/mL 133, 137 Urine Phencyclidine Negative ng/mL Cutoff: 25 133 Urine Tetrahydrocannabinol Presumptive Posi <SEE Cutoff: 50 133, 138 NOTE> ng/mL Creatinine 57.7 mg/dL 133 Specific [place] 1.007 133 pH 7.6 133 Oxidants Negative 133, 139 Adulterants Comment Normal 133 Codeine, Ur Not Detected ng/mL Cutoff: 25 133, 140 Yctezvp-9-tjee-glucuronide, Ur Not Detected ng/mL 133, 141 Morphine, Ur Not Detected ng/mL Cutoff: 25 133, 142 Vvetqgoq-7-bubx-glucuronide, U Not Detected ng/mL 133, 143 6-monoacetylmorphine, Ur Not Detected ng/mL Cutoff: 25 133, 144 Hydrocodone, Ur Not Detected ng/mL Cutoff: 25 133, 145 Norhydrocodone, Ur Not Detected ng/mL Cutoff: 25 133, 146 Dihydrocodeine, Ur Not Detected ng/mL Cutoff: 25 133, 147 Hydromorphone, Ur Not Detected ng/mL Cutoff: 25 133, 148 Idhishvfqqwjo4qhhbbuurjkesgeg Not Detected ng/mL 133, 149 Oxycodone, Ur Not Detected ng/mL Cutoff: 25 133, 150 Noroxycodone, Ur Not Detected ng/mL Cutoff: 25 133, 151 Oxymorphone, Ur Not Detected ng/mL Cutoff: 25 133, 152 Whzwdnziugd-2-uhhv-glucuronide Not Detected ng/mL 133, 153 Noroxymorphone, Ur Not Detected ng/mL Cutoff: 25 133, 154 Fentanyl, Ur Not Detected ng/mL Cutoff: 2 133, 155 Norfentanyl, Ur Not Detected ng/mL Cutoff: 2 133, 156 Meperidine, Ur Not Detected ng/mL Cutoff: 25 133, 157 Normeperidine, Ur Not Detected ng/mL Cutoff: 25 133, 158 Naloxone, Ur Not Detected ng/mL Cutoff: 25 133, 159 Sduhuedt-5-avyc-glucuronide, U Present ng/mL 133, 160 Methadone, Ur Not Detected ng/mL Cutoff: 25 133, 161 Eddp, Ur Not Detected ng/mL Cutoff: 25 133, 162 Propoxyphene, Ur Not Detected ng/mL Cutoff: 25 133, 163 Norpropoxyphene, Ur Not Detected ng/mL Cutoff: 25 133, 164 Tramadol, Ur Not Detected ng/mL Cutoff: 25 133, 165 O-desmethyltramadol, Ur Not Detected ng/mL Cutoff: 25 133, 166 Tapentadol, Ur Not Detected ng/mL Cutoff: 25 133, 167 N-desmethyltapentadol, Ur Not Detected ng/mL Cutoff: 50 133, 168 Jrphstmcmi-xoui-jfwaxjrdtuk, U Not Detected ng/mL 133, 169 Buprenorphine, Ur Not Detected ng/mL Cutoff: 5 133, 170 Norbuprenorphine, Ur Present ng/mL Cutoff: 5 133, 171 Norbuprenorphine glucuronide Present ng/mL Cutoff: 20 133, 172 Opioid Interpretation See Comment 133, 173 THC Confirmation Urine 08/01/2016 Urine Carboxy THC Confirm 350 ng/mL 133, 174 Urine THC Interpretation Positive. 133, 175 Laboratory test finding 07/18/2016 Vitamin B12 128 pg/mL Low 180-914 176 Free T4 (Free Thyroxine) 0.71 ng/dL 0.61-1.12 Hemoglobin A1c (Glyco HGB) 5.9 % Less than 6.0 177 Liver Function Panel 07/18/2016 Total Protein 7.0 g/dL 6.4-8.9 Albumin 3.7 g/dL 3.2-5.2 Globulin 3.3 g/dL 2-4 Albumin/Globulin Ratio 1.1 1-3 Total Bilirubin 0.40 mg/dL 0.2-1.0 Direct Bilirubin 0.10 mg/dL 0.03-0.18 Indirect Bilirubin 0.3 mg/dL 0.3-1.0 Alkaline Phosphatase 106 U/L High 34-104 Alt 20 U/L 7-52 Ast 27 U/L 13-39 Laboratory test 07/18/2016 Hepatitis C Rna Quant [id number] IU/mL Undetected 178 finding Hepatitis C Genotype 1a Undetected 179 Drug Abuse 20 Urine 06/30/2016 Urine Amphetamine Presumptive Posi <SEE 180 NOTE> ng/mL Urine Barbiturates Negative ng/mL 181 Urine Benzodiazepines Negative ng/mL 182 Urine Cocaine Negative ng/mL 183 Urine Phencyclidine Negative ng/mL Cutoff: 25 Urine Tetrahydrocannabinol Presumptive Posi <SEE NOTE> Cutoff: 50 184 ng/mL Creatinine 303.6 mg/dL Specific [place] 1.016 pH 7.6 Oxidants Negative 185 Adulterants Comment Normal Codeine, Ur Not Detected ng/mL Cutoff: 25 186 Gntzrie-8-hjgz-glucuronide, Ur Not Detected ng/mL 187 Morphine, Ur Not Detected ng/mL Cutoff: 25 188 Bqyaqmjn-8-qugw-glucuronide, U Not Detected ng/mL 189 6-monoacetylmorphine, Ur Not Detected ng/mL Cutoff: 25 190 Hydrocodone, Ur Not Detected ng/mL Cutoff: 25 191 Norhydrocodone, Ur Not Detected ng/mL Cutoff: 25 192 Dihydrocodeine, Ur Not Detected ng/mL Cutoff: 25 193 Hydromorphone, Ur Not Detected ng/mL Cutoff: 25 194 Xulcfnzpwzmpd2woomadfwpqkrzrw Not Detected ng/mL 195 Oxycodone, Ur Not Detected ng/mL Cutoff: 25 196 Noroxycodone, Ur Not Detected ng/mL Cutoff: 25 197 Oxymorphone, Ur Not Detected ng/mL Cutoff: 25 198 Gxohbnpyrbj-5-mmfc-glucuronide Not Detected ng/mL 199 Noroxymorphone, Ur Not Detected ng/mL Cutoff: 25 200 Fentanyl, Ur Not Detected ng/mL Cutoff: 2 201 Norfentanyl, Ur Not Detected ng/mL Cutoff: 2 202 Meperidine, Ur Not Detected ng/mL Cutoff: 25 203 Normeperidine, Ur Not Detected ng/mL Cutoff: 25 204 Naloxone, Ur Not Detected ng/mL Cutoff: 25 205 Hdnzrxyx-7-qvnj-glucuronide, U Not Detected ng/mL 206 Methadone, Ur Not Detected ng/mL Cutoff: 25 207 Eddp, Ur Not Detected ng/mL Cutoff: 25 208 Propoxyphene, Ur Not Detected ng/mL Cutoff: 25 209 Norpropoxyphene, Ur Not Detected ng/mL Cutoff: 25 210 Tramadol, Ur Not Detected ng/mL Cutoff: 25 211 O-desmethyltramadol, Ur Not Detected ng/mL Cutoff: 25 212 Tapentadol, Ur Not Detected ng/mL Cutoff: 25 213 N-desmethyltapentadol, Ur Not Detected ng/mL Cutoff: 50 214 Garbktbizx-bqme-zuwmyfghned, U Not Detected ng/mL 215 Buprenorphine, Ur Not Detected ng/mL Cutoff: 5 216 Norbuprenorphine, Ur Present ng/mL Cutoff: 5 217 Norbuprenorphine glucuronide Present ng/mL Cutoff: 20 218 Opioid Interpretation See Comment 219 Urine Amphetamine 06/30/2016 Urine Amphetamine by Negative ng/mL Cutoff: 25 Confirm GC/MS Urine Methamphetamine by GC/MS Negative ng/mL Cutoff: 25 Phentermine-by GC/MS Negative ng/mL Cutoff: 25 Pseudoephedrine/Ephedr GC/MS Negative ng/mL Cutoff: 25 Mda(Ecstacy metabolite) GC/MS Negative ng/mL Cutoff: 25 Mdma(Ecstacy)-by GC/MS Negative ng/mL Cutoff: 25 Urine Amphetamines Interp Negative. 220 THC Confirmation Urine 06/30/2016 Urine Carboxy THC Confirm >500.0 ng/mL 221 Urine THC Interpretation Positive. 222 1 Because ethnic data is not always readily available, this report includes an eGFR for both -Americans and non- Americans. The National Kidney Disease Education Program (NKDEP) does not endorse the use of the MDRD equation for patients that are not between the ages of 18 and 70, are , have extremes of body size, muscle mass, or nutritional status, or are non- or non-. According to the National Kidney Foundation, irrespective of diagnosis, the stage of the disease is based on the level of kidney function: Stage Description GFR(mL/min/1.73 m(2)) 1 Kidney damage with normal or decreased GFR 90 2 Kidney damage with mild decrease in GFR 60-89 3 Moderate decrease in GFR 30-59 4 Severe decrease in GFR 15-29 5 Kidney failure <15 (or dialysis) 2 Serologic response to B. burgdorferi infection is not detected, but cannot rule out early infection during which low or undetectable antibody levels to B. burgdorferi may be present. If clinically indicated, a new serum specimen should be submitted in 7-14 days. Test Performed by: [facility] [place] [facility] [address] [place] [address] 3 Normal Range 180 to 914 Indeterminate Range 145 to 180 Deficient Range <145 4 REFERENCE VALUE Cutoff: 500 5 REFERENCE VALUE Cutoff: 200 6 REFERENCE VALUE Cutoff: 100 7 REFERENCE VALUE Cutoff: 150 8 Presumptive Positive Drug confirmation to follow. Presumptive Positive means that the screening method is positive, but the test needs to be run by a confirmatory method before being finalized. ADDITIONAL INFORMATION This report is intended for use in clinical monitoring or management of patients. It is not intended for use in employment-related testing. 9 REFERENCE VALUE Cutoff: 200 mg/L 10 Tylenol 3 11 Metabolite of codeine REFERENCE VALUE Cutoff: 100 12 Aleida Aden, Contin; Also a minor metabolite (10%) of codeine and can be seen in low concentrations (<2,000 ng/mL) with poppy seed ingestion. 13 Metabolite of morphine REFERENCE VALUE Cutoff: 100 14 Metabolite of heroin 15 Lortab, Cammal, Vicodin; Also a very minor metabolite of codeine and impurity (<1%) of oxycodone. 16 Metabolite of hydrocodone 17 Metabolite of hydrocodone 18 Dilaudid, Exalgo; Also a metabolite of hydrocodone and a minor (<5%) metabolite of morphine. 19 Metabolite of hydromorphone REFERENCE VALUE Cutoff: 100 20 Endocet, Percocet, Oxycontin 21 Metabolite of oxycodone 22 Numorphan, Opana; Also a metabolite of oxycodone. 23 Metabolite of oxymorphone REFERENCE VALUE Cutoff: 100 24 Metabolite of oxymorphone 25 Actiq, Duragesic, Fentora 26 Metabolite of fentanyl 27 Demerol 28 Metabolite of meperidine 29 Narcan 30 Metabolite of naloxone REFERENCE VALUE Cutoff: 100 31 Dolophine 32 Metabolite of methadone 33 Darvon, Darvocet 34 Metabolite of propoxyphene 35 Tradol, Ultram, Ultracet 36 Metabolite of tramadol 37 Nucynta 38 Metabolite of tapentadol 39 Metabolite of tapentadol REFERENCE VALUE Cutoff: 100 40 Buprenex, Suboxone 41 Metabolite of buprenorphine 42 Metabolite of buprenorphine 43 Test detected the presence of norbuprenorphine and norbuprenorphine glucuronide which are metabolites of buprenorphine. Suspect use of buprenorphine within the past three days. Test detected the presence of nphomwvd-2-hhaa-glucuronide (metabolite of naloxone) only. Suspect use of naloxone (Narcan) within the past three days. ADDITIONAL INFORMATION This test was developed and its performance characteristics determined by [facility] in a manner consistent with CLIA requirements. This test has not been cleared or approved by the U.S. Food and Drug Administration. Test Performed by: [facility] [employer] [address] [place] [id number] 44 REFERENCE VALUE Cutoff: 3.0 45 ADDITIONAL INFORMATION This report is intended for use in clinical monitoring and management of patients. It is not intended for use in employment-related testing. This test was developed and its performance characteristics determined by [facility] in a manner consistent with CLIA requirements. This test has not been cleared or approved by the U.S. Food and Drug Administration. Test Performed by: [facility] - [address] [address] 46 Normal Range 180 to 914 Indeterminate Range 145 to 180 Deficient Range <145 47 Because ethnic data is not always readily available, this report includes an eGFR for both -Americans and non- Americans. The National Kidney Disease Education Program (NKDEP) does not endorse the use of the MDRD equation for patients that are not between the ages of 18 and 70, are , have extremes of body size, muscle mass, or nutritional status, or are non- or non-. According to the National Kidney Foundation, irrespective of diagnosis, the stage of the disease is based on the level of kidney function: Stage Description GFR(mL/min/1.73 m(2)) 1 Kidney damage with normal or decreased GFR 90 2 Kidney damage with mild decrease in GFR 60-89 3 Moderate decrease in GFR 30-59 4 Severe decrease in GFR 15-29 5 Kidney failure <15 (or dialysis) 48 SEE RESULT BELOW Name: ELIAS SHERMAN : [address]: Debby Washington MD Acct: [id number] Unit: [id number] AGE: 31 Location: [facility] Re11/30/16 SEX: F Status: REG REF SPEC: [id number] LAUREANO: 11/30/16-1433 [facility] DR: Vinod Washington MD REQ: [id number] RECD: 11/30/16 STATUS: COMP _ SOURCE: URINE SPDESC: ORDERED: Urine Culture Procedure Result Reported Site Urine Culture Final 12/02/16- 743 ML Organism 1 ESCHERICHIA COLI [place] Count >100,000 (Many) CFU/ML 1. ESCHERICHIA COLI M.I.C. RX --------- ------ Ampicillin >=32 R Cefazolin <=4 S Cefepime <=1 S Ceftriaxone <=1 S Ciprofloxacin >=4 R Gentamicin <=1 S Levofloxacin >=8 R Meropenem <=0.25 S Nitrofurantoin <=16 S Tetracycline 2 S Pipercillin/Tazobactam <=4 S Trimethoprim/Sulfamethoxazole >=320 R Amoxicillin/Clavulanic Acid 8 S Aztreonam <=1 S Contact the Microbiology Department for any additional antibiotic reporting. * ML - [facility] ([facility]) . END OF REPORT * ML=Testing performed at Main Lab DEPARTMENT OF PATHOLOGY, [address] [place] [address] Robbi Mathur M.D. Director SHAUNA # [id number] REFERENCE VALUE Cutoff: 500 50 REFERENCE VALUE Cutoff: 200 51 REFERENCE VALUE Cutoff: 100 52 REFERENCE VALUE Cutoff: 150 53 Presumptive Positive Drug confirmation to follow. Presumptive Positive means that the screening method is positive, but the test needs to be run by a confirmatory method before being finalized. ADDITIONAL INFORMATION This report is intended for use in clinical monitoring or management of patients. It is not intended for use in employment-related testing. 54 REFERENCE VALUE Cutoff: 200 mg/L 55 Tylenol 3 56 Metabolite of codeine REFERENCE VALUE Cutoff: 100 57 Aleida Aden MS Contin; Also a minor metabolite (10%) of codeine and can be seen in low concentrations (<2,000 ng/mL) with poppy seed ingestion. 58 Metabolite of morphine REFERENCE VALUE Cutoff: 100 59 Metabolite of heroin 60 Lortab, Cammal, Vicodin; Also a very minor metabolite of codeine and impurity (<1%) of oxycodone. 61 Metabolite of hydrocodone 62 Metabolite of hydrocodone 63 Dilaudid, Exalgo; Also a metabolite of hydrocodone and a minor (<5%) metabolite of morphine. 64 Metabolite of hydromorphone REFERENCE VALUE Cutoff: 100 65 Endocet, Percocet, Oxycontin 66 Metabolite of oxycodone 67 Numorphan, Opana; Also a metabolite of oxycodone. 68 Metabolite of oxymorphone REFERENCE VALUE Cutoff: 100 69 Metabolite of oxymorphone 70 Actiq, Duragesic, Fentora 71 Metabolite of fentanyl 72 Demerol 73 Metabolite of meperidine 74 Narcan 75 Metabolite of naloxone REFERENCE VALUE Cutoff: 100 76 Dolophine 77 Metabolite of methadone 78 Darvon, Darvocet 79 Metabolite of propoxyphene 80 Tradol, Ultram, Ultracet 81 Metabolite of tramadol 82 Nucynta 83 Metabolite of tapentadol 84 Metabolite of tapentadol REFERENCE VALUE Cutoff: 100 85 Buprenex, Suboxone 86 Metabolite of buprenorphine 87 Metabolite of buprenorphine 88 Test detected the presence of norbuprenorphine and norbuprenorphine glucuronide which are metabolites of buprenorphine. Suspect use of buprenorphine within the past three days. Test detected the presence of wtawjbrp-7-jrrv-glucuronide (metabolite of naloxone) only. Suspect use of naloxone (Narcan) within the past three days. ADDITIONAL INFORMATION This test was developed and its performance characteristics determined by [facility] in a manner consistent with CLIA requirements. This test has not been cleared or approved by the U.S. Food and Drug Administration. Test Performed by: [facility] - [address] [id number] 89 REFERENCE VALUE Cutoff: 3.0 90 ADDITIONAL INFORMATION This report is intended for use in clinical monitoring and management of patients. It is not intended for use in employment-related testing. This test was developed and its performance characteristics determined by [facility] in a manner consistent with CLIA requirements. This test has not been cleared or approved by the U.S. Food and Drug Administration. Test Performed by: [facility] - [address] [address] 91 REFERENCE VALUE Cutoff: 3.0 92 ADDITIONAL INFORMATION This report is intended for use in clinical monitoring and management of patients. It is not intended for use in employment-related testing. This test was developed and its performance characteristics determined by [facility] in a manner consistent with CLIA requirements. This test has not been cleared or approved by the U.S. Food and Drug Administration. Test Performed by: [facility] - [address] [address] 93 REFERENCE VALUE Cutoff: 500 94 REFERENCE VALUE Cutoff: 200 95 REFERENCE VALUE Cutoff: 100 96 REFERENCE VALUE Cutoff: 150 97 Presumptive Positive Drug confirmation to follow. Presumptive Positive means that the screening method is positive, but the test needs to be run by a confirmatory method before being finalized. ADDITIONAL INFORMATION This report is intended for use in clinical monitoring or management of patients. It is not intended for use in employment-related testing. 98 REFERENCE VALUE Cutoff: 200 mg/L 99 Tylenol 3 100 Metabolite of codeine REFERENCE VALUE Cutoff: 100 101 Aleida Aden, MS Contin; Also a minor metabolite (10%) of codeine and can be seen in low concentrations (<2,000 ng/mL) with poppy seed ingestion. 102 Metabolite of morphine REFERENCE VALUE Cutoff: 100 103 Metabolite of heroin 104 Lortab, Cammal, Vicodin; Also a very minor metabolite of codeine and impurity (<1%) of oxycodone. 105 Metabolite of hydrocodone 106 Metabolite of hydrocodone 107 Dilaudid, Exalgo; Also a metabolite of hydrocodone and a minor (<5%) metabolite of morphine. 108 Metabolite of hydromorphone REFERENCE VALUE Cutoff: 100 109 Endocet, Percocet, Oxycontin 110 Metabolite of oxycodone 111 Numorphan, Opana; Also a metabolite of oxycodone. 112 Metabolite of oxymorphone REFERENCE VALUE Cutoff: 100 113 Metabolite of oxymorphone 114 Actiq, Duragesic, Fentora 115 Metabolite of fentanyl 116 Demerol 117 Metabolite of meperidine 118 Narcan 119 Metabolite of naloxone REFERENCE VALUE Cutoff: 100 120 Dolophine 121 Metabolite of methadone 122 Darvon, Darvocet 123 Metabolite of propoxyphene 124 Tradol, Ultram, Ultracet 125 Metabolite of tramadol 126 Nucynta 127 Metabolite of tapentadol 128 Metabolite of tapentadol REFERENCE VALUE Cutoff: 100 129 Buprenex, Suboxone 130 Metabolite of buprenorphine 131 Metabolite of buprenorphine 132 Test detected the presence of norbuprenorphine and norbuprenorphine glucuronide which are metabolites of buprenorphine. Suspect use of buprenorphine within the past three days. Test detected the presence of aemxhewm-4-awzx-glucuronide (metabolite of naloxone) only. Suspect use of naloxone (Narcan) within the past three days. ADDITIONAL INFORMATION This test was developed and its performance characteristics determined by [facility] in a manner consistent with CLIA requirements. This test has not been cleared or approved by the U.S. Food and Drug Administration. Test Performed by: [facility] [place] [facility] [address] [facility], [place] [address] [id number] REFERENCE VALUE Cutoff: 500 135 REFERENCE VALUE Cutoff: 200 136 REFERENCE VALUE Cutoff: 100 137 REFERENCE VALUE Cutoff: 150 138 Presumptive Positive Drug confirmation to follow. Presumptive Positive means that the screening method is positive, but the test needs to be run by a confirmatory method before being finalized. ADDITIONAL INFORMATION This report is intended for use in clinical monitoring or management of patients. It is not intended for use in employment-related testing. 139 REFERENCE VALUE Cutoff: 200 mg/L 140 Tylenol 3 141 Metabolite of codeine REFERENCE VALUE Cutoff: 100 142 Aleida Aden, MS Contin; Also a minor metabolite (10%) of codeine and can be seen in low concentrations (<2,000 ng/mL) with poppy seed ingestion. 143 Metabolite of morphine REFERENCE VALUE Cutoff: 100 144 Metabolite of heroin 145 Lortab, Cammal, Vicodin; Also a very minor metabolite of codeine and impurity (<1%) of oxycodone. 146 Metabolite of hydrocodone 147 Metabolite of hydrocodone 148 Dilaudid, Exalgo; Also a metabolite of hydrocodone and a minor (<5%) metabolite of morphine. 149 Metabolite of hydromorphone REFERENCE VALUE Cutoff: 100 150 Endocet, Percocet, Oxycontin 151 Metabolite of oxycodone 152 Numorphan, Opana; Also a metabolite of oxycodone. 153 Metabolite of oxymorphone REFERENCE VALUE Cutoff: 100 154 Metabolite of oxymorphone 155 Actiq, Duragesic, Fentora 156 Metabolite of fentanyl 157 Demerol 158 Metabolite of meperidine 159 Narcan 160 Metabolite of naloxone REFERENCE VALUE Cutoff: 100 161 Dolophine 162 Metabolite of methadone 163 Darvon, Darvocet 164 Metabolite of propoxyphene 165 Tradol, Ultram, Ultracet 166 Metabolite of tramadol 167 Nucynta 168 Metabolite of tapentadol 169 Metabolite of tapentadol REFERENCE VALUE Cutoff: 100 170 Buprenex, Suboxone 171 Metabolite of buprenorphine 172 Metabolite of buprenorphine 173 Test detected the presence of norbuprenorphine and norbuprenorphine glucuronide which are metabolites of buprenorphine. Suspect use of buprenorphine within the past three days. Test detected the presence of cazmkyoy-8-hptv-glucuronide (metabolite of naloxone) only. Suspect use of naloxone (Narcan) within the past three days. ADDITIONAL INFORMATION This test was developed and its performance characteristics determined by [facility] in a manner consistent with CLIA requirements. This test has not been cleared or approved by the U.S. Food and Drug Administration. Test Performed by: [facility] - [address] [address] 174 REFERENCE VALUE Cutoff: 3.0 175 ADDITIONAL INFORMATION This report is intended for use in clinical monitoring and management of patients. It is not intended for use in employment-related testing. This test was developed and its performance characteristics determined by [facility] in a manner consistent with CLIA requirements. This test has not been cleared or approved by the U.S. Food and Drug Administration. Test Performed by: [facility] - [address] [address] 176 Normal Range 180 to 914 Indeterminate Range 145 to 180 Deficient Range <145 177 Therapeutic target for the treatment of diabetes Mellitus patients is <7% HBA1C, and in selective patients <6.0%.Please refer to [place] [employer] Diabetic care guidelines for further information. 178 Result in log IU/mL is 6.37. ADDITIONAL INFORMATION The quantification range of this assay is 15 to 100,000,000 IU/mL (1.18 log to 8.00 log IU/mL). Testing was performed by the LYLA AmpliPrep/LYLA TaqMan HCV Test, version 2.0 ([employer] Test Performed by: [facility] [address] [place] [address] 179 ADDITIONAL INFORMATION This test was performed using the Coley RealTime HCV Genotype II assay ([employer] [place], [place]). Test Performed by: [facility] - [address] [address] 180 Presumptive Positive Drug confirmation to follow. Presumptive Positive means that the screening method is positive, but the test needs to be run by a confirmatory method before being finalized. REFERENCE VALUE Cutoff: 500 181 REFERENCE VALUE Cutoff: 200 182 REFERENCE VALUE Cutoff: 100 183 REFERENCE VALUE Cutoff: 150 184 Presumptive Positive Drug confirmation to follow. Presumptive Positive means that the screening method is positive, but the test needs to be run by a confirmatory method before being finalized. ADDITIONAL INFORMATION This report is intended for use in clinical monitoring or management of patients. It is not intended for use in employment-related testing. 185 REFERENCE VALUE Cutoff: 200 mg/L 186 Tylenol 3 187 Metabolite of codeine REFERENCE VALUE Cutoff: 100 188 Aleida Aden, MS Contin; Also a minor metabolite (10%) of codeine and can be seen in low concentrations (<2,000 ng/mL) with poppy seed ingestion. 189 Metabolite of morphine REFERENCE VALUE Cutoff: 100 190 Metabolite of heroin 191 Lortab, Cammal, Vicodin; Also a very minor metabolite of codeine and impurity (<1%) of oxycodone. 192 Metabolite of hydrocodone 193 Metabolite of hydrocodone 194 Dilaudid, Exalgo; Also a metabolite of hydrocodone and a minor (<5%) metabolite of morphine. 195 Metabolite of hydromorphone REFERENCE VALUE Cutoff: 100 196 Endocet, Percocet, Oxycontin 197 Metabolite of oxycodone 198 Numorphan, Opana; Also a metabolite of oxycodone. 199 Metabolite of oxymorphone REFERENCE VALUE Cutoff: 100 200 Metabolite of oxymorphone 201 Actiq, Duragesic, Fentora 202 Metabolite of fentanyl 203 Demerol 204 Metabolite of meperidine 205 Narcan 206 Metabolite of naloxone REFERENCE VALUE Cutoff: 100 207 Dolophine 208 Metabolite of methadone 209 Darvon, Darvocet 210 Metabolite of propoxyphene 211 Tradol, Ultram, Ultracet 212 Metabolite of tramadol 213 Nucynta 214 Metabolite of tapentadol 215 Metabolite of tapentadol REFERENCE VALUE Cutoff: 100 216 Buprenex, Suboxone 217 Metabolite of buprenorphine 218 Metabolite of buprenorphine 219 Test detected the presence of norbuprenorphine and norbuprenorphine glucuronide which are metabolites of buprenorphine. Suspect use of buprenorphine within the past three days. ADDITIONAL INFORMATION This test was developed and its performance characteristics determined by [facility] in a manner consistent with CLIA requirements. This test has not been cleared or approved by the U.S. Food and Drug Administration. Test Performed by: [facility] [place] - [address] [address] 220 ADDITIONAL INFORMATION This report is intended for use in clinical monitoring and management of patients. It is not intended for use in employment-related testing. This test was developed and its performance characteristics determined by [facility] in a manner consistent with CLIA requirements. This test has not been cleared or approved by the U.S. Food and Drug Administration. Test Performed by: [facility] [place] - [address] [address] 221 REFERENCE VALUE Cutoff: 3.0 222 ADDITIONAL INFORMATION This report is intended for use in clinical monitoring and management of patients. It is not intended for use in employment-related testing. This test was developed and its performance characteristics determined by [facility] in a manner consistent with CLIA requirements. This test has not been cleared or approved by the U.S. Food and Drug Administration. Test Performed by: [facility] - [address] [address] Procedures Date CPT Code Description Status 12/26/2016 76678 Admin Of Inj Completed 10/17/2016 99939 Admin Of Inj Completed 08/22/2016 31411 Admin Of Inj Completed 08/01/2016 19396 Admin Of Inj Completed 08/07/2013 70484 Color Flow Doppler/Interp & Reprt Completed 08/07/2013 47375 Pulse Wave/Continuous-Interp.RPT Completed 08/07/2013 63356 Echocardiography, Transesophageal, Real Time W/Image 2D Completed W/W/O M-M 08/05/2013 03866 ECHO Transthorasic Realtime 2D W Doppler & Color Completed Flow Hosp 11/13/2009 31518 Xray Knee 3 Views Completed Encounters Type Date Location Provider CPT E/M Dx Office Visit 04/07/2017 10:20a [facility] [place] [address] R53.83 Ghassan M25.50 Z72.0 F41.9 Office Visit 01/31/2017 2:00p [facility] Internal Medicine Vinod Washington, [address] F33.1 - Ghassan Aly,FACP F11.14 B18.2 F17.210 Office Visit 12/26/2016 1:20p [facility] Internal Vinod Washington, [address] K80.00 Medicine - [place] Aly,FACP K21.9 D51.9 F11.14 B18.2 Office Visit 10/17/2016 2:50p [facility] Internal Vinod Washington, [address] F11.14 Medicine - [place] Aly,FACP L70.0 D51.9 G47.00 Office Visit 09/15/2016 4:40p [facility] Internal Medicine Vinod Washington, [address] R06.2 - [place] Aly,FACP F11.14 F17.210 D51.9 N91.2 Office Visit 08/22/2016 2:50p [facility] Internal Vinod Washington, [address]015 A49.02 Medicine - [place] [address] Sheeba,FACP D51.9 F11.14 Office Visit 08/01/2016 4:20p [facility] Internal Medicine Vinod Washington, [address]295 D51.9 - [place] [address] Sheeba,FACP B18.2 F11.14 Office Visit 06/30/2016 1:40p [facility] Internal Vinod Washington, [address] F11.14 Medicine - [place] Aly,FACP F41.9 B18.2 Office Visit 05/02/2016 10:00a [facility] Internal Medicine - Prasanna Michele, 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 [address] G60.3 [place] M25.561 G47.62 Office Visit 08/12/2013 1:55p [facility], Fabi Arroyo, [address] 038.12 Hospitalists M.DKorey 451.83 682.4 304.40 Office Visit 08/11/2013 1:54p [facility], Esteban Nava, [address] 790.7 Hospitalists M.DKorey 451.83 682.4 304.40 Office Visit 08/10/2013 1:54p [facility] Martina Morris, 94[address] 451.83 Assoc, Hospitalists MKaitlin 682.4 304.40 296.22 Office Visit 08/09/2013 10:16a [facility] Tad Odonnell, [address] 041.12 Infectious Diseases M.DKorey 790.7 415.12 453.72 451.89 Office Visit 08/09/2013 1:53p [facility] Martina Morris, [address] 451.83 Assoc, Hospitalists MKaitlin 682.4 304.40 296.22 Office Visit 08/08/2013 4:24p [facility] Tad Odonnell, [address] 041.12 Infectious Diseases M.D. 790.7 451.89 415.12 453.72 Office Visit 08/08/2013 1:53p [facility] Martina Morris, [address] 451.83 Assoc, Hospitalists Sheeba 682.4 304.40 296.22 Office Visit 08/07/2013 1:52p [facility] Martina Morris [address] 451.83 Assoc, Hospitalists Sheeba 682.4 304.40 296.22 Office Visit 08/07/2013 4:20p [facility] Tad Odonnell, [address] 041.12 Infectious Diseases M.D. 790.7 451.89 415.12 453.72 Office Visit 08/06/2013 1:51p [facility] Malik Harvey, 185[address] 451.83 Assoc, Hospitalists Sheeba 682.4 304.40 296.22 Office Visit 08/06/2013 4:14p [facility] Tad Odonnell, [address]66 041.12 Infectious Diseases M.D. 790.7 288.63 451.89 Office Visit 08/05/2013 1:51p [facility] Malik Harvey, 98492 451.83 Assoc, Hospitalists Sheeba 682.4 304.40 Office Visit 08/05/2013 9:25a [facility] Tad Odonnell, [address] 041.12 Infectious Diseases M.D. 790.7 288.63 451.89 Office Visit 08/04/2013 1:50p [facility] Vinod Washington, [address] 451.83 Assoc, Hospitalists [place] Hospitalist 682.4 304.40 Office Visit 08/04/2013 7:00a [facility] Janine [address] 682.4 Of Jhnoy Perez M.D. Office Visit 08/03/2013 1:48p [facility] Vinod Washington, 587[address] 451.83 Assoc, [place] Hospitalist Hospitalists 682.4 304.40 Office Visit 08/02/2013 1:46p [facility] [facility] Vinod Washington, [id number] [phone] Assoc, Hospital[facility] [place] [facility] [phone] Office Visit 11/13/2009 2:00p [facility], [address] [phone] Jhony Aly Office Visit 10/02/2009 9:30a [facility], 72765 [phone] CRadha Aly 727.1 Plan of Care Future Appointment(s):06/05/2017 1:40 pm - Krista Little, 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 at [facility] [address]06/02/2017 11:20 am - Vinod Washington M.D.,FACP at [facility] 07/28/2017 3:20 pm - Vinod Washington M.D. ,FACP at [facility] 04/21/2017 - Vinod Washington M.D., [id number] Neoplasm of uncertain behavior of skinReferral:Emanuel Cabral MD, [id number] Opioid abuse with opioid-induced mood [id number] Vitamin B12 deficiency anemia, unspecified
[2017-05-24 08:48] VITALS: BP 113/74
--- NOTE | 2017-05-24 10:11 | UC ---
Skin Complaint HPI - HPI Summary HPI Summary: PT HERE WITH SEVERAL WEEKS OF PAINFUL RAISED LESIONS ON HER POSTERIOR NECK AND UPPER CHEST. PT STATES ONE ON HER NECK STARTED A MOLE THAT SHE SCRATCHED OFF. HAS BEEN PICKING AT THEM AND NOW THEY ARE HEAPED UP, SCABBED OVER AND TENDER. ONE LARGER LESION ON NAPE OF NECK IS VERY TENDER AND DRAINS WHITE MATERIAL. HAS BEEN SEEING DR. HADLEY WITH DERM AND WAS TX WITH MEDICATED SHAMPOO. PT REPORTS NO IMPROVEMENT. SHE DID HAVE A MORE DIFFUSE ITCHY, RED RASH INITIALLY THAT HAS RESOLVED WITH PREDNISONE. PT IS HERE SEEKING A SECOND OPINION. - History of Current Complaint Chief Complaint: UCSkin Time Seen by Provider: 05/24/17 09:21 Stated Complaint: SKIN COMPLAINT Hx Obtained From: Patient Hx Last Menstrual Period: unknown Onset/Duration: Gradual Onset, Lasting Weeks, Still Present Timing: Constant Onset Severity: Moderate Current Severity: Moderate Pain Intensity: 5 Pain Scale Used: 0-10 Numeric Character: Pain, Raised Aggravating Factor(s): Touch Alleviating Factor(s): Nothing Associated Signs & Symptoms: Positive: Drainage, Tenderness - Allergy/Home Medications Allergies/Adverse Reactions: Allergies Allergy/AdvReac Type Severity Reaction Status Date / Time No Known Allergies Allergy Verified 05/24/17 08:32 Home Medications: Home Medications Buprenorphine/Naloxone SL TAB* [Suboxone 8-2 mg SL TAB*] 2 tab SL DAILY [History Confirmed 05/24/17] lamoTRIgine [Lamotrigine] 25 mg PO DAILY 05/24/17 [History Confirmed 05/24/17] predniSONE [Prednisone] 15 mg PO DAILY 05/24/17 [History Confirmed 05/24/17] Review of Systems Constitutional: Negative Skin: Other - ABSCESS, SKIN LESIONS Respiratory: Negative Cardiovascular: Negative Gastrointestinal: Negative All Other Systems Reviewed And Are Negative: Yes PMH/Surg Hx/FS Hx/Imm Hx Other GI/ History: HEPATITIS C - Surgical History Surgical History: Yes Surgery Procedure, Year, and Place: Bone spurs and bunion removed on feet. - Family History Known Family History: Positive: Hypertension - Social History Alcohol Use: Occasionally Alcohol Amount: none that pt reports Substance Use Type: None Substance Use Comment - Amount & Last Used: 1 week ago pt used "speed" Smoking Status (MU): Light Every Day Tobacco Smoker Type: Cigarettes Amount Used/How Often: 1/2 pack a day, formerly more Length of Time of Smoking/Using Tobacco: 13 years Have You Smoked in the Last Year: Yes Household Exposure Type: Cigarettes - Immunization History Most Recent Influenza Vaccination: 2012 Most Recent Tetanus Shot: 5 years or less Most Recent Pneumonia Vaccination: unknown Physical Exam Triage Information Reviewed: Yes Appearance: Well-Appearing, No Pain Distress, Well-Nourished Vital Signs: Initial Vital Signs Temp 98.9 F 05/24/17 08:38 Pulse 68 05/24/17 08:38 Resp 16 05/24/17 08:38 BP 113/74 05/24/17 08:38 Pulse Ox 100 05/24/17 08:38 Vital Signs Reviewed: Yes Eyes: Positive: Conjunctiva Clear ENT: Positive: Hearing grossly normal Neck: Positive: Supple Respiratory: Positive: No respiratory distress, No accessory muscle use Cardiovascular: Positive: Pulses Normal Abdomen Description: Positive: Soft Musculoskeletal: Positive: No Edema Neurological: Positive: Alert Psychological: Positive: Age Appropriate Behavior Skin: Positive: Other - 4CM X 3CM TENDER, INDURATED LESION RIGHT POSTERIOR NECK WITH CENTRAL FLUCTUANCE. SCATTERED 1-2CM SCABBED OVER, HEAPED UP LESIONS ON CHEST AND NECK. Course/Dx - Course Course Of Treatment: Abscess posterior right neck opened with an 18-gauge needle. 2 mL of pus expressed. Specimen sent for culture. Will cover with Bactrim and refer to alternate planer mill grader for reevaluation. - Diagnoses Provider Diagnoses: 1. ABSCESS POSTERIOR RIGHT NECK. 2. SKIN LESIONS, NOS Procedures - Incision and Drainage Site: RIGHT POSTERIOR NECK Instrument(s): Needle - 18 GAUGE Discharge - Discharge Plan Condition: Stable Disposition: HOME Prescriptions: Sulfamethox/Trimethoprim DS* [Bactrim DS 800/160 TAB*] 1 tab PO BID #20 tab Patient Education Materials: Abscess (ED) Forms: *Work Release Referrals: Vinod Washington MD [Primary Care Provider] - If Needed Additional Instructions: We'll treat your infection with antibiotics. Take twice daily for the full 10 days. Follow-up with alternate planer mill grader for further evaluation of your skin lesions. WARM/HOT COMPRESSES/SOAKS AT LEAST 4 TIMES DAILY SPECIMEN SENT FOR CULTURE DERMATOLOGY IN [place] Dr. Latia Aparicioister Address: [address] [place] [address] [address] [place] [address] [address] VIRGEN COSTELLO [facility], [facility] [address]; [address] [place] [address] [address] [place] [address] Janine Choi DERMATOLOGY IN [place] DR. LINA SKINNER [phone]
--- NOTE | 2017-05-24 16:40 | UC ---
- Progress Note Progress Note: Wound culture results with positive MRSA. Pt is on Bactrim and this should cover , but please let her know that she has MRSA for future reference and for her follow up with dermatology.
== END 2017-05-24 10:25 | disposition home or self-care (01) ==
LOC: UCEAST 08:28
DX: L02.11 Cutaneous abscess of neck (principal); B95.62 Methicillin resistant Staphylococcus aureus infection as the cause of diseases classified elsewhere; L98.9 Disorder of the skin and subcutaneous tissue, unspecified; F17.210 Nicotine dependence, cigarettes, uncomplicated
CPT/HCPCS: 10060; 87070; 87077; 87186; 87205; 87640; 87641; 99212; G0463

== ENCOUNTER 2017-05-25 07:18 | Emergency (ER) | payer OTHER ==
[2017-05-25 07:33] VITALS: BP 138/77
--- NOTE | 2017-05-25 10:39 | UC ---
Anthony Dyer Gabriel, scribed for Marlen Miranda DO on 05/25/17 at 0813 . Skin Complaint HPI - HPI Summary HPI Summary: This patient is a 31 year old F presenting to [facility] with a chief complaint of a neck abscess that has gotten worse since yesterday. Pt was seen here yesterday and had abscess on the back of her neck lanced. Currently she believes it has doubled in size. She scratched a mole off 2 weeks ago that turned into a full body rash, which developed into an abscess. The patient rates the pain 8/10 in severity and radiating into her ear. Symptoms alleviated by nothing, she has taken naproxen and ibuprofen with no relief. Patient reports nausea, trouble focusing secondary to pain, WALSH, right nipple itching, and weakness. Patient denies fever, chills, SOB, CP, and eye drainage. Pt received a phone call today and was told she has MRSA. - History of Current Complaint Chief Complaint: UCSkin Time Seen by Provider: 05/25/17 07:52 Stated Complaint: RASH Hx Obtained From: Patient Hx Last Menstrual Period: 04/20/17 Onset/Duration: Lasting Weeks, Still Present Skin Exposure Onset/Duration: Weeks Ago, Worse Since: - yesterday Onset Severity: Severe Current Severity: Severe Pain Intensity: 8 Pain Scale Used: 0-10 Numeric Location: Other - back of neck Character: Swelling, Redness, Raised, Painful Alleviating Factor(s): Nothing Associated Signs & Symptoms: Positive: Weakness, Drainage. Negative: Fever, Chills - Allergy/Home Medications Allergies/Adverse Reactions: Allergies Allergy/AdvReac Type Severity Reaction Status Date / Time No Known Allergies Allergy Verified 05/25/17 07:33 Home Medications: Home Medications Calcium Carbonate CHEW TAB* [Tums*] 500 mg PO BID PRN 05/25/17 [History Confirmed 05/25/17] Naproxen 500 mg PO BID PRN 05/25/17 [History Confirmed 05/25/17] Review of Systems Skin: Other - abscess on neck and itching of right nipple Gastrointestinal: Nausea Musculoskeletal: Other: Neurological: Headache, Weakness, Other - trouble focusing secondary to pain All Other Systems Reviewed And Are Negative: Yes PMH/Surg Hx/FS Hx/Imm Hx Psychological History: Anxiety, Depression Other History Of: Hepatitis C - Surgical History Surgical History: Yes Surgery Procedure, Year, and Place: Bone spurs and bunion removed on feet. - Family History Known Family History: Positive: Hypertension, Diabetes, Other - lung cancer - Social History Occupation: Employed Full-time Alcohol Use: Rare Alcohol Amount: none that pt reports Substance Use Type: None Substance Use Comment - Amount & Last Used: 1 week ago pt used "speed" Smoking Status (MU): Light Every Day Tobacco Smoker Type: Cigarettes Amount Used/How Often: 1/2 pack a day, formerly more Length of Time of Smoking/Using Tobacco: 13 years Have You Smoked in the Last Year: Yes Household Exposure Type: Cigarettes - Immunization History Most Recent Influenza Vaccination: 2012 Most Recent Tetanus Shot: unknown Most Recent Pneumonia Vaccination: unknown Physical Exam - Summary Physical Exam Summary: Appearance: Moderately ill-Appearing, mild to moderate Pain Distress, Well- Nourished, seems anxious Eyes: conjunctiva clear, no discharge ENT: Hearing grossly normal, no muffled/hoarse voice. Hearing grossly normal, normal voice. Neck: Normal, Supple Respiratory/Lung Sounds: Lungs clear, Normal breath sounds, No respiratory distress, No accessory muscle use Cardiovascular: RRR, No murmur Abdomen (if she checks): Nontender, Soft, no guarding, not distended Bowel Sounds (if she checks): Present Musculoskeletal: Normal Neurological: Alert, muscle tone normal Psychiatric: Normal, age appropriate behavior Skin: a number of open sores, scattered diffusely across her body. They appear to have been picked at. She has an large irregular shaped abscess on the right occiput that is extending over the mastoid it is hard there is no pocket of flatulence noted. There is an old incision in the center of the abscess where and I&D was attempted yesterday. It is red and TTP. Triage Information Reviewed: Yes Vital Signs: Initial Vital Signs Temp 98.2 F 05/25/17 07:23 Pulse 89 05/25/17 07:23 Resp 16 05/25/17 07:23 BP 138/77 05/25/17 07:23 Pulse Ox 98 05/25/17 07:23 Vital Signs Reviewed: Yes Course/Dx - Course Course Of Treatment: Patient will be discharged and follow up from PCP. The patient is agreeable with this plan. Medications reviewed. Allergies reviewed. The patient was encouraged to go to the ED and was warned of her risks. The patient has been encouraged to quit smoking. - Diagnoses Provider Diagnoses: MRSA and abscess Discharge - Discharge Plan Condition: Stable Disposition: HOME Patient Education Materials: MRSA (Methicillin-Resistant Staphylococcus Aureus ) (ED), Abscess (ED) Referrals: Vinod Washington MD [Primary Care Provider] - As Soon As Possible Additional Instructions: Since the abscess on the back of your head is growing dramatically in size after being lanced and starting antibiotics, we think it is very important to get more attention than we can offer you here at the . We recommend you go the ED immediately for further evaluation. The risk associated with your infection are worsening infection, sepsis, and . The documentation as recorded by the Anthony regan Gabriel accurately reflects the service I personally performed and the decisions made by me, Marlen Miranda DO.
== END 2017-05-25 08:26 | disposition home or self-care (01) ==
LOC: UCEAST 07:18
DX: L02.11 Cutaneous abscess of neck (principal); B95.62 Methicillin resistant Staphylococcus aureus infection as the cause of diseases classified elsewhere; R11.0 Nausea; R51 Headache; R53.1 Weakness; Z32.02 Encounter for pregnancy test, result negative; F41.9 Anxiety disorder, unspecified; F39 Unspecified mood [affective] disorder; Z86.19 Personal history of other infectious and parasitic diseases; F17.210 Nicotine dependence, cigarettes, uncomplicated
CPT/HCPCS: 84702; 99212; G0463

== ENCOUNTER 2017-05-25 08:59 | Emergency (ER) | payer OTHER ==
[2017-05-25] MEDS ORDERED: Ondansetron INJ* 2 MG/ML VIAL ONE (09:25)
[2017-05-25] MEDS ORDERED: Ondansetron INJ* 2 MG/ML VIAL IV ONE (09:27)
[2017-05-25] MEDS ORDERED: Clindamycin 600 MG IVPREMIX(* 600 MG/50 ML SDV IV ONE (09:27)
[2017-05-25] MEDS ORDERED: Ketorolac INJ* 30 MG/ML 1 ML VIAL IV PUSH ONE (09:50)
[2017-05-25] MEDS ORDERED: Morphine INJ* 4 MG/ML 1 ML SYRINGE (NEW SYRINGE VERSION) IV ONE (09:50)
[2017-05-25] MEDS ORDERED: NS 0.9% 500 ML* 500 ML IV ONE (09:51)
[2017-05-25] MEDS ORDERED: diPHENhydraMINE PO* 25 MG PO ONE (10:28)
[2017-05-25 10:41] LABS: Hematocrit 37 % (35-47); Hemoglobin 12.3 g/dl (12.0-16.0); Mean Corpuscular HGB Conc 34 g/dl (31-36); Mean Corpuscular Hemoglobin 32 pg (27-31); Mean Corpuscular Volume 96 fL (80-97); Mean Platelet Volume 8 um3 (7.4-10.4); Platelet Count 268 10^3/ul (150-450); Red Blood Count 3.82 10^6/ul (4.0-5.4); Red Cell Distribution Width 13 % (10.5-15); White Blood Count 16.3 10^3/ul (3.5-10.8)
[2017-05-25 10:51] LABS: EGFR Non-African American 37.6 (>60)
[2017-05-25 11:12] VITALS: BP 131/70
[2017-05-25 12:07] LABS: Monocytes % 13 % (0-7)
--- NOTE | 2017-05-26 08:19 | ED ---
Richard Dyer Angela, scribed for Serafin Vergara MD on 05/25/17 at 0918 . Skin Complaint - HPI Summary HPI Summary: This pt is a 31 y/o female presenting to [facility] referred by [facility] c/o an abscess on the posterior aspect of her neck for the past several weeks, worse since yesterday. Pt reports she has been having skin "problems" for the past several weeks. She states she went to Urgent Care yesterday and had her abscess lanced only draining a little. Pt notes that since her abscess was lanced yesterday it has become worse. She reports her abscess is getting larger and has more pain. Pt has taken Ibuprofen and Naproxen with no relief. She additionally states nausea. Denies fever, chills, chest pain, SOB. Pt received a phone call today and was told she has MRSA. - History of Current Complaint Chief Complaint: EDGeneral Stated Complaint: DX MRSA/SENT FROM [facility] Hx Obtained From: Patient Hx Last Menstrual Period: 04/20/17 Onset/Duration: Started Weeks Ago, Still Present Timing: Constant, Lasting Weeks Current Severity: Severe Pain Intensity: 10 Pain Scale Used: 0-10 Numeric Skin Location: Neck - posterior aspect Character: Swelling, Pain, Redness, Raised, Painful Aggravating Symptom(s): Nothing Alleviating Symptom(s): Nothing Associated Signs & Symptoms: Tenderness - Additional Pertinent History Primary Care Physician: [id number] - Allergy/Home Medications Allergies/Adverse Reactions: Allergies Allergy/AdvReac Type Severity Reaction Status Date / Time No Known Allergies Allergy Verified 05/25/17 07:33 PMH/Surg Hx/FS Hx/Imm Hx Endocrine/Hematology History: Denies: Hx Diabetes, Hx Thyroid Disease, Hx Anemia Cardiovascular History: Denies: Hx Congestive Heart Failure, Hx Hypertension, Hx Pacemaker/ICD Respiratory History: Denies: Hx Asthma, Hx Chronic Bronchitis - had bronchitis twice, Hx Chronic Obstructive Pulmonary Disease (COPD) GI History: Reports: Other GI Disorders - Takes Protonix Denies: Hx Ulcer History: Reports: Hx Kidney Infection - at age 15 or so, not in years Denies: Hx Renal Disease Comment Only: Other Problems/Disorders - Recent UTI Musculoskeletal History: Reports: Other Musculoskeletal History - knees and foot have cartilage problems Sensory History: Reports: Hx Contacts or Glasses - a little nearsighted Denies: Hx Hearing Aid Opthamlomology History: Reports: Hx Contacts or Glasses - a little nearsighted Psychiatric History: Reports: Hx Attention Deficit Hyperactivity Disorder, Hx Depression, Hx Post Traumatic Stress Disorder, Hx Inpatient Treatment - Pt came from a dual diag facility as SW understands, Hx Substance Abuse Denies: Hx Eating Disorder, Hx Panic Disorder, Hx Suicide Attempt, Hx of Violent Episodes Against Others - Surgical History Surgery Procedure, Year, and Place: Bone spurs and bunion removed on feet. Infectious Disease History: No Infectious Disease History: Reports: Hx Hepatitis - type C Denies: Hx Human Immunodeficiency Virus (HIV), Traveled Outside the [place] in Last 30 Days - Family History Known Family History: Positive: Hypertension, Diabetes Family History: Lung CA - Social History Alcohol Use: Rare Alcohol Amount: none that pt reports Substance Use Type: Reports: None Substance Use Comment - Amount & Last Used: 1 week ago pt used "speed" Smoking Status (MU): Light Every Day Tobacco Smoker Type: Cigarettes Amount Used/How Often: 1/2 pack a day, formerly more Length of Time of Smoking/Using Tobacco: 13 years Have You Smoked in the Last Year: Yes Review of Systems Negative: Fever, Chills Negative: Chest Pain Negative: Shortness Of Breath Positive: Nausea Skin: Other - abscess on posterior aspect of neck All Other Systems Reviewed And Are Negative: Yes Physical Exam - Summary Physical Exam Summary: VITAL SIGNS: Reviewed. GENERAL: Patient is a well-developed and nourished female who is lying comfortable in the stretcher. Patient is not in any acute respiratory distress. HEAD AND FACE: No signs of trauma. No ecchymosis, hematomas or skull depressions. No sinus tenderness. EYES: PERRLA, EOMI x 2, No injected conjunctiva, no nystagmus. EARS: Hearing grossly intact. Ear canals and tympanic membranes are within normal limits. MOUTH: Oropharynx within normal limits. NECK: Supple, trachea is midline, no adenopathy, no JVD, no carotid bruit, no c- spine tenderness, neck with full ROM. CHEST: Symmetric, no tenderness at palpation LUNGS: Clear to auscultation bilaterally. No wheezing or crackles. CVS: Regular rate and rhythm, S1 and S2 present, no murmurs or gallops appreciated. ABDOMEN: Soft, non-tender. No signs of distention. No rebound no guarding, and no masses palpated. Bowel sounds are normal. EXTREMITIES: FROM in all major joints, no edema, no cyanosis or clubbing. NEURO: Alert and oriented x 3. No acute neurological deficits. Speech is normal and follows commands. SKIN: Dry and warm. Abscess on the right side of the scalp. Abscess is tender, swollen, and red. There are multiple small abscess on chest and upper extremities. Triage Information Reviewed: Yes Vital Signs On Initial Exam: Initial Vitals Temp Pulse Resp BP Pulse Ox 97.8 F 65 20 128/74 96 05/25/17 09:07 05/25/17 09:07 05/25/17 09:07 05/25/17 09:07 05/25/17 09:07 Vital Signs Reviewed: Yes Procedures - Incision and Drainage Site: posterior aspect of neck Instrument(s): Scalpel - #11 Packing: Gauze, Drain Diagnostics - Vital Signs Vital Signs Temp Pulse Resp BP Pulse Ox 05/25/17 09:07 97.8 F 65 20 128/74 96 - Laboratory Result Diagrams: 05/25/17 10:26 05/25/17 10:26 Lab Statement: Any lab studies that have been ordered have been reviewed, and results considered in the medical decision making process. Course/Dx - Course Assessment/Plan: This pt is a 31 y/o female presenting to [facility] referred by [facility] c/o an abscess on the posterior aspect of her neck for the past several weeks, worse since yesterday. Pt reports she has been having skin "problems" for the past several weeks. She states she went to Urgent Care yesterday and had her abscess lanced only draining a little. Pt notes that since her abscess was lanced yesterday it has become worse. She reports her abscess is getting larger and has more pain. Pt has taken Ibuprofen and Naproxen with no relief. She additionally states nausea. Denies fever, chills, chest pain, SOB. Pt received a phone call today and was told she has MRSA. Test results show WBC of 16.3, creatinine of 1.59. The pt was given IV fluids, morphine and Toradol for the pain, Clindamycin for the abscess and cellulitis. I opened the abscess with an #11 blade and there was a copious amount of discharge and I placed packing. At this point the pt is feeling better. She will be given prescription for Clindamycin to cover MRSA. She will be discharged to home with follow up from her PCP. Pt is hemodynamically stable, alert and oriented x3. - Diagnoses Provider Diagnoses: Abscess, Cellulitis Discharge - Discharge Plan Condition: Stable Disposition: HOME Prescriptions: Clindamycin Cap(NF) [Clindamycin Cap 300 mg Cap(NF)] 300 mg PO Q6H #40 cap Patient Education Materials: Cellulitis (ED), Abscess (ED) Referrals: Vinod Washington MD [Primary Care Provider] - 2 Days Additional Instructions: Please follow up with your primary care provider in 2 days or return to the ED in 2 days for a follow up. RETURN TO THE ED FOR ANY WORSENING SYMPTOMS. The documentation as recorded by the Richard regan Angela accurately reflects the service I personally performed and the decisions made by Jai costello Walter, MD.
--- NOTE | 2017-05-27 09:32 | ED ---
Progress - Progress Note Progress Note: Patient's partial blood culture results reveal MRSA and staph aureus. Her anaerobic cultures are still pending. She presented on 05/25 with an abscess on her posterior neck/scalp region. It appears initial I&D was not successful and patient was sent to the emergency department for labs are drawn and antibiotics were started. Further I&D was performed with copious drainage from report. Wound was cultured and packed. Patient was discharged with clindamycin and advised to follow-up if symptoms worsen. She returned to the [facility] care the following day with reports that abscess was worsening. Was encouraged to go back to the emergency department which are for she declined but later in the day did go. Her labs are repeated, a CT was ordered which did not show worsening of her condition. She was encouraged to stay however she opted to leave and continue by mouth antibiotics. Her labs did indicate elevated white count and elevated CRP during the to draw she had however lactic acid level was within normal limits and she was afebrile, blood pressure and heart rate within normal limits. She was additionally placed on bactrim and her U/A revealed UTI (it was presumed the bactrim would cover this organism as she had + nitrates). Attempted to contact today to follow-up on symptoms and unable to leave a message. Will mail a letter requesting follow-up. Sampson Coronado aware. Course/Dx - Diagnoses Provider Diagnoses: Abscess, Cellulitis
== END 2017-05-25 11:10 | disposition home or self-care (01) ==
LOC: ED 08:59
DX: L02.11 Cutaneous abscess of neck (principal); B95.62 Methicillin resistant Staphylococcus aureus infection as the cause of diseases classified elsewhere; L03.221 Cellulitis of neck; N39.0 Urinary tract infection, site not specified; F17.210 Nicotine dependence, cigarettes, uncomplicated
CPT/HCPCS: 10060; 36415; 80053; 83605; 85025; 85060; 86140; 87040; 87070; 87077; 87150; 87186; 87205; 87640; 87641; 96361; 96365; 96375; 99284; A9270-GY; J1885; J2270; J2405

== ENCOUNTER 2017-05-26 07:14 | Emergency (ER) | payer OTHER ==
[2017-05-26 07:31] VITALS: BP 119/70
--- NOTE | 2017-05-26 08:39 | UC ---
Skin Complaint HPI - HPI Summary HPI Summary: PT HERE FOR RECHECK OF ABSCESS POSTERIOR RIGHT NECK. WENT TO ER YESTERDAY AND HAD IT OPENED. CLINDA ADDED TO ANTIBIOTIC REGIMEN. STATES THAT SHE WOKE UP THIS MORNING AND IT WAS BIGGER. NO FEVER. HAS MORE PAIN AND SWELLING. IS ALSO WANTING INSTRUCTION ON HOW TO DRESS THE WOUND. - History of Current Complaint Time Seen by Provider: 05/26/17 07:17 Stated Complaint: NECK PAIN,TIRED,RASH Hx Obtained From: Patient Hx Last Menstrual Period: 04/20/17 Onset/Duration: Gradual Onset, Lasting Weeks, Still Present Timing: Constant Onset Severity: Moderate Current Severity: Moderate Pain Intensity: 4 Pain Scale Used: 0-10 Numeric Character: Swelling, Pain, Redness Aggravating Factor(s): Touch Alleviating Factor(s): Nothing Associated Signs & Symptoms: Positive: Nausea, Drainage, Tenderness. Negative: Vomiting, Fever, Chills, Cough - Allergy/Home Medications Allergies/Adverse Reactions: Allergies Allergy/AdvReac Type Severity Reaction Status Date / Time No Known Allergies Allergy Verified 05/26/17 07:24 Review of Systems Constitutional: Negative Skin: Other - ABCESS, LESIONS Respiratory: Negative Cardiovascular: Negative Gastrointestinal: Negative All Other Systems Reviewed And Are Negative: Yes PMH/Surg Hx/FS Hx/Imm Hx Other GI/ History: HEPATITIS C Other History Of: Hepatitis C - Surgical History Surgical History: Yes Surgery Procedure, Year, and Place: Bone spurs and bunion removed on feet. - Family History Known Family History: Positive: Hypertension, Diabetes, Other - lung cancer - Social History Alcohol Use: None Alcohol Amount: none that pt reports Substance Use Type: None Substance Use Comment - Amount & Last Used: 1 week ago pt used "speed" Smoking Status (MU): Light Every Day Tobacco Smoker Type: Cigarettes Amount Used/How Often: 1/2 pack a day, formerly more Length of Time of Smoking/Using Tobacco: 13 years Have You Smoked in the Last Year: Yes Household Exposure Type: Cigarettes - Immunization History Most Recent Influenza Vaccination: 2012 Most Recent Tetanus Shot: unknown Most Recent Pneumonia Vaccination: unknown Physical Exam Triage Information Reviewed: Yes Appearance: Well-Appearing, Well-Nourished, Pain Distress - MODERATE Vital Signs: Initial Vital Signs Temp 99.2 F 05/26/17 07:24 Pulse 100 05/26/17 07:24 Resp 18 05/26/17 07:24 BP 119/70 05/26/17 07:24 Pulse Ox 95 05/26/17 07:24 Vital Signs Reviewed: Yes Eyes: Positive: Conjunctiva Clear ENT: Positive: Hearing grossly normal Neck: Positive: Supple Respiratory: Positive: No respiratory distress, No accessory muscle use Cardiovascular: Positive: Pulses Normal Abdomen Description: Positive: Soft Musculoskeletal: Positive: ROM Intact Neurological: Positive: Alert Psychological: Positive: Age Appropriate Behavior Skin: Positive: Other - ABSCESS RIGHT POSTERIOR NECK VERY TTP. INDURATION NOW EXTENDING TO ANGLE OF MANDIBLE. SMALL AMOUNT OF PURULENT MATERIAL EXPRESSED FROM OPENING. Course/Dx - Course Course Of Treatment: I SPOKE TO BOTH DR. GODINEZ IN THE [facility] ED AND PT PCP DR. WASHINGTON ABOUT CONCERN FOR DEEPER INFECTION. BOTH ARE IN AGREEMENT WITH RE- EVALUATION IN ED TO DETERMINE NEED FOR IMAGING AND/OR CHANGE IN ANTIBIOTIC REGIMEN. I DISCUSSED WITH PT AT LENGTH THE CONCERN FOR INVASION INTO DEEPER STRUCTURES AND POSSIBLE SEPSIS THAT MAY DEVELOP FROM INADEQUATELY TREATED INFECTION. PT DECLINES TRANSFER TO ED. ADVISED THAT SHE COULD BE RISKING WORSENING OF HER CONDITION THAT COULD POSE A THREAT TO HER LIFE, HEALTH AND MEDICAL SAFETY. SHE VERBALIZES UNDERSTANDING AND CONTINUES TO DECLINE TRANSFER. STATES SHE WILL GO LATER IF NOT IMPROVING. APPT MADE WITH DR. WASHINGTON TODAY AT 3: 50PM. PT INSTRUCTED ON WOUND CARE. WOUND PACKED WITH 1/4 INCH PLAIN PACKING. - Diagnoses Provider Diagnoses: ABSCESS - RIGHT POSTERIOR NECK Discharge - Discharge Plan Condition: Stable Disposition: HOME Patient Education Materials: Abscess (ED) Forms: *Work Release Referrals: Vinod Washington MD [Primary Care Provider] - (APPT WITH DR. WASHINGTON TODAY AT 3: 50PM. ) Additional Instructions: YOUR ABSCESS SEEMS TO BE WORSENING DESPITE BEING ON ANTIBIOTICS. WE HAVE REPACKED YOUR WOUND TODAY. DO NOT REMOVE THIS PACKING. RECOMMEND GOING TO THE ED DIRECTLY FROM HERE FOR FURTHER EVALUATION. YOU MAY BENEFIT FROM IMAGING, LABS AND POSSIBLY IV ANTIBIOTICS. DR. WASHINGTON HAS STATED THAT IF YOU WERE TO BE ADMITTED HE WOULD BE HAPPY TO COORDINATE WITH THE HOSPITALISTS FOR YOUR CARE.
== END 2017-05-26 09:15 | disposition home or self-care (01) ==
LOC: UCEAST 07:14
DX: L02.11 Cutaneous abscess of neck (principal); R11.0 Nausea; Z86.19 Personal history of other infectious and parasitic diseases; F17.210 Nicotine dependence, cigarettes, uncomplicated
CPT/HCPCS: 99212; G0463

== ENCOUNTER 2017-05-26 18:23 | Emergency (ER) | payer OTHER ==
[2017-05-26] MEDS ORDERED: NS 0.9% 1000 ML*IV.FLUID IV ONE (19:13)
[2017-05-26] MEDS ORDERED: Ketorolac INJ* 30 MG/ML 1 ML VIAL IV PUSH ONE (19:29)
[2017-05-26] MEDS ORDERED: diPHENhydraMINE PO* 25 MG PO ONE (19:30)
--- NOTE | 2017-05-26 19:41 | ED ---
Skin Complaint - HPI Summary HPI Summary: 31-year-old female presents with neck complaints for the past month. She states she has been having she numbness of her neck. She states she started developing lesions that she was picking at. She states over the past couple days with increased swelling towards her neck. She states 2 days ago she started on Bactrim by [facility]. She states that yesterday she was seen in [facility] and transferred to the ED for drainage. States that yesterday a lot of pus was removed from the area and it was packed. She states she has some pain relief after the I&D. She states she was started on clindamycin. She states she has been taking clindamycin according to Bactrim for a day. She denies any fevers or chills. States she is more tired than normal. She states this morning the area seemed to be more swollen and the swelling seemed to extend to the anterior part of her neck. She states she was seen in [facility] today and transferred here for further workup. She denies any chest pain or shortness of breath. She denies any difficulty swallowing. She denies any ear pain. She has been taking her normal Suboxone for her pain. She was told she has MRSA. She has no other medical conditions. She did use some cocaine yesterday. - History of Current Complaint Chief Complaint: EDGeneral Time Seen by Provider: 05/26/17 19:12 Stated Complaint: NECK PAIN SENT FROM [facility] Hx Last Menstrual Period: 04/20/17 Pain Intensity: 6 - Additional Pertinent History Primary Care Physician: [id number] - Allergy/Home Medications Allergies/Adverse Reactions: Allergies Allergy/AdvReac Type Severity Reaction Status Date / Time No Known Allergies Allergy Verified 05/26/17 07:24 PMH/Surg Hx/FS Hx/Imm Hx Endocrine/Hematology History: Denies: Hx Diabetes, Hx Thyroid Disease, Hx Anemia Cardiovascular History: Denies: Hx Congestive Heart Failure, Hx Hypertension, Hx Pacemaker/ICD Respiratory History: Denies: Hx Asthma, Hx Chronic Bronchitis - had bronchitis twice, Hx Chronic Obstructive Pulmonary Disease (COPD) GI History: Reports: Other GI Disorders - Takes Protonix Denies: Hx Ulcer History: Reports: Hx Kidney Infection - at age 15 or so, not in years Denies: Hx Renal Disease Comment Only: Other Problems/Disorders - Recent UTI Musculoskeletal History: Reports: Other Musculoskeletal History - knees and foot have cartilage problems Sensory History: Reports: Hx Contacts or Glasses - a little nearsighted Denies: Hx Hearing Aid Opthamlomology History: Reports: Hx Contacts or Glasses - a little nearsighted Psychiatric History: Reports: Hx Attention Deficit Hyperactivity Disorder, Hx Depression, Hx Post Traumatic Stress Disorder, Hx Inpatient Treatment - Pt came from a dual dia facility as SW understands, Hx Substance Abuse Denies: Hx Eating Disorder, Hx Panic Disorder, Hx Suicide Attempt, Hx of Violent Episodes Against Others - Surgical History Surgery Procedure, Year, and Place: Bone spurs and bunion removed on feet. Infectious Disease History: No Infectious Disease History: Reports: Hx Hepatitis - type C Denies: Hx Human Immunodeficiency Virus (HIV), Traveled Outside the [place] in Last 30 Days - Family History Known Family History: Positive: Hypertension, Diabetes, Other - lung cancer - Social History Alcohol Use: None Alcohol Amount: none that pt reports Substance Use Type: Reports: Cocaine, Marijuana, Other Substance Use Comment - Amount & Last Used: occasionally Smoking Status (MU): Light Every Day Tobacco Smoker Type: Cigarettes Amount Used/How Often: 1/2 pack a day, formerly more Length of Time of Smoking/Using Tobacco: 13 years Have You Smoked in the Last Year: Yes Review of Systems Negative: Fever, Chills Negative: Chest Pain Negative: Shortness Of Breath Positive: Other - abscess on right side of neck All Other Systems Reviewed And Are Negative: Yes Physical Exam Triage Information Reviewed: Yes Vital Signs On Initial Exam: Initial Vitals Temp Pulse Resp BP Pulse Ox 98.5 F 80 18 117/70 99 05/26/17 18:30 05/26/17 18:30 05/26/17 18:30 05/26/17 18:30 05/26/17 18:30 Vital Signs Reviewed: Yes Appearance: Positive: Well-Appearing Skin: Positive: Warm, Dry, Other - has drainaing abscess on right side of neck with surround erythema Head/Face: Positive: Normal Head/Face Inspection Eyes: Positive: Normal, EOMI, YOLANDA, Conjunctiva Clear ENT: Positive: Normal ENT inspection, Pharynx normal, TMs normal Neck: Positive: Enlarged Nodes @ - right cervical, Other: - tenderness on right side of neck, Respiratory/Lung Sounds: Positive: Clear to Auscultation, Breath Sounds Present Cardiovascular: Positive: Normal, RRR Abdomen Description: Positive: Nontender, Soft Bowel Sounds: Positive: Present Musculoskeletal: Positive: Normal Neurological: Positive: Normal Psychiatric: Positive: Normal Diagnostics - Vital Signs Vital Signs Temp Pulse Resp BP Pulse Ox 05/26/17 19:30 96 05/26/17 18:30 98.5 F 80 18 117/70 99 - Laboratory Result Diagrams: 05/26/17 19:37 05/26/17 19:37 Lab Statement: Any lab studies that have been ordered have been reviewed, and results considered in the medical decision making process. - CT neck CT Interpretation: Positive (See Comments) - There is soft tissue swelling involving the right trapezius muscle in the right semispinalis capitis muscle with subcutaneous edema and skin thickening consistent with phlegmonous change. No drainable fluid collection is noted. Subcutaneous air is noted presumably from prior instrumentation. CT Interpretation Completed By: Radiologist Re-Evaluation - Re-Evaluation First Eval Re-Evaluation Time: 22:29 Change: Unchanged Comment: patient became agitated and wanted to go home, disucsed results with patient and will send home as does not want to stay Course/Dx - Course Course Of Treatment: 31-year-old female presents with neck complaints for the past month. She states she has been having she numbness of her neck. She states she started developing lesions that she was picking at. She states over the past couple days with increased swelling towards her neck. She states 2 days ago she started on Bactrim by [facility]. She states that yesterday she was seen in [facility] and transferred to the ED for drainage. States that yesterday a lot of pus was removed from the area and it was packed. She states she has some pain relief after the I&D. She states she was started on clindamycin. She states she has been taking clindamycin according to Bactrim for a day. She denies any fevers or chills. States she is more tired than normal. She states this morning the area seemed to be more swollen and the swelling seemed to extend to the anterior part of her neck. She states she was seen in [facility] today and transferred here for further workup. She denies any chest pain or shortness of breath. She denies any difficulty swallowing. She denies any ear pain. She has been taking her normal Suboxone for her pain. She was told she has MRSA. She has no other medical conditions. She did use some cocaine yesterday. on exam has drainage abscess on right side of neck with minimial surrounding erythema with some drain present. vitals normal. wbc 15 which is less than yesterday. lactic normal. urine shows uti. patient currently on bactrim so should cover for such. CT neck shows no abscess felt phlegmon changes. discussed with patient and she does not want to stay. gave dose of vancomycin while here. labs appear to be improving but warned if redness spreads or develop fever to return to ED. patient understand and agrees with plan. - Differential Diagnoses - Skin Complaint Differential Diagnoses: Abscess, Cellulitis, Contact Dermatitis, Other - sepsis - Diagnoses Provider Diagnoses: Cellulitis and abscess of neck Discharge - Discharge Plan Condition: Stable Disposition: HOME Patient Education Materials: Abscess (ED) Referrals: Vinod Washington MD [Primary Care Provider] - Additional Instructions: Continue clindamycin and bactrim as prescribed Apply warm compresses to area Take tyenlol or ibuprofen for pain every 6 hours Follow up with primary or urgent care within 2 days for wound check and repacking Return to ED if develop fever, redness spreads or any new or worsening symptoms
[2017-05-26 19:52] LABS: ABS Basophils 0 10^3/ul (0-0.2); ABS Eosinophils 0.8 10^3/ul (0-0.6); ABS Lymphocytes 2.9 10^3/ul (1.0-4.8); ABS Monocytes 1.4 10^3/ul (0-0.8); ABS Neutrophils 9.9 10^3/ul (1.5-7.7); ABS Nucleated RBC 0 10^3/ul; Hematocrit 38 % (35-47); Lymphocyte % 19.1 % (25-47); Mean Corpuscular HGB Conc 34 g/dl (31-36); Mean Corpuscular Hemoglobin 32 pg (27-31); Mean Corpuscular Volume 95 fL (80-97); Mean Platelet Volume 9 um3 (7.4-10.4); Nucleated Red Blood Cells % 0; Platelet Count 287 10^3/ul (150-450); Red Blood Count 4.01 10^6/ul (4.0-5.4); Red Cell Distribution Width 13 % (10.5-15)
[2017-05-26 20:00] LABS: INR 0.86 (0.77-1.02)
[2017-05-26] MEDS ORDERED: Vancomycin(*) 1,000 MG VIAL IVPB SCH (20:00)
[2017-05-26] MEDS ORDERED: Vancomycin(*) 750 MG in NS 0.9% 250 ML* 250 ML IVPB ONE (20:00)
[2017-05-26 20:16] LABS: Urine Appearance Cloudy; Urine Blood 1+ (Negative); Urine Color Yellow; Urine Ketones Negative (Negative); Urine Protein Negative (Negative); Urine Specific Gravity 1.011 (1.010-1.030); Urine Urobilinogen Negative (Negative)
[2017-05-26] MEDS ORDERED: Iodixanol* (CONTRAST) 320 MG/ML 100 ML SDV IV ONE (20:26)
--- NOTE | 2017-05-26 22:12 | RAD ---
Patient: Right-sided neck abscess. Contrast: Administered 50.1 ml of VISAPAQUE 320 mg/ml CT of the neck was performed in the axial plane. Coronal and sagittal reconstructed images were obtained. The skull base demonstrates no evidence of abnormal masses. No enhancing lesions are noted. The parotid glands are unremarkable. No evidence of abnormal collections are noted. The oropharynx and nasopharynx are grossly unremarkable. Sternocleidomastoid muscles are grossly unremarkable. Masseter muscle and warehouse receiver spaces are unremarkable. No evidence of abnormal fluid collections are noted. Pterygoid muscles are otherwise unremarkable. The mandible demonstrates no evidence of fracture. There is soft tissue swelling with phlegmonous changes in the right posterior neck involving the trapezius muscle and the semispinalis capitis muscle. The subcutaneous fat is infiltrated consistent with phlegmon. A soft tissue defect is noted consistent with recent drainage. IMPRESSION: There is soft tissue swelling involving the right trapezius muscle in the right semispinalis capitis muscle with subcutaneous edema and skin thickening consistent with phlegmonous change. No drainable fluid collection is noted. Subcutaneous air is noted presumably from prior instrumentation.
[2017-05-26 22:23] VITALS: BP 110/60
--- NOTE | 2017-05-29 08:51 | PN ---
Progress Note - Progress Note Date of Service: 05/26/17 Note: Patient was placed on clindamycin for a positive MRSA wound culture Urine grew out Escherichia coli Clindamycin covers this bacteria No change in medication is needed.
== END 2017-05-26 22:23 | disposition home or self-care (01) ==
LOC: ED 18:23
DX: L03.221 Cellulitis of neck (principal); B95.62 Methicillin resistant Staphylococcus aureus infection as the cause of diseases classified elsewhere; N39.0 Urinary tract infection, site not specified; B96.20 Unspecified Escherichia coli [E. coli] as the cause of diseases classified elsewhere; F17.210 Nicotine dependence, cigarettes, uncomplicated
CPT/HCPCS: 36415; 70491; 80053; 81003; 81015; 83605; 84484; 84702; 85025; 85610; 85730; 86140; 87040; 87077; 87086; 87186; 96361; 96365; 96366; 96375; 99282; A9270-GY; J1885; J3370; Q9967

== ENCOUNTER 2017-05-31 17:36 | Inpatient (IN) | payer OTHER ==
[2017-05-31] MEDS ORDERED: Vancomycin(*) 1,000 MG in NS 0.9% 250 ML* 250 ML IVPB ONE (18:56)
[2017-05-31] MEDS ORDERED: NS 0.9% 1000 ML* 1,000 ML IV SCH (19:00)
[2017-05-31] MEDS ORDERED: hydrOXYzine HCL TAB* 25 MG PO ONE (19:39)
[2017-05-31] MEDS ORDERED: NS 0.9% 1000 ML* 1,000 ML IV ONE (20:56)
[2017-05-31] MEDS ORDERED: CMCS Melatonin (NF) 3 MG TAB PO SCH ×2 (21:00→21:30)
[2017-05-31] MEDS ORDERED: Vancomycin per Pharmacy* NOTE FOLLOW UP SCH (21:00)
[2017-05-31 21:57] LABS: INR 0.92 (0.77-1.02)
[2017-05-31] MEDS ORDERED: ceFAZolin 1 GM/10 ML SYRINGE IVPB Q8H IVPB SCH ×2 (22:00)
[2017-05-31] MEDS ORDERED: ceFAZolin 1 GM VIAL(*) 1 GM in NS 0.9% 50 ML* 50 ML IVPB SCH (22:00)
[2017-05-31] MEDS: Buprenorphine/Naloxone 8-2 MG SL TAB* 1 TAB SL SCH (22:11)
[2017-05-31 22:20] LABS: ABS Basophils 0 10^3/ul (0-0.2); ABS Eosinophils 0 10^3/ul (0-0.6); ABS Lymphocytes 1.9 10^3/ul (1.0-4.8); ABS Monocytes 0.6 10^3/ul (0-0.8); ABS Neutrophils 8.3 10^3/ul (1.5-7.7); ABS Nucleated RBC 0 10^3/ul; Eosinophil % 0.2 % (0-6); Hematocrit 41 % (35-47); Lymphocyte % 17.8 % (25-47); Mean Corpuscular HGB Conc 34 g/dl (31-36); Mean Corpuscular Hemoglobin 33 pg (27-31); Mean Corpuscular Volume 95 fL (80-97); Mean Platelet Volume 8 um3 (7.4-10.4); Nucleated Red Blood Cells % 0; Platelet Count 326 10^3/ul (150-450); Red Cell Distribution Width 12 % (10.5-15); White Blood Count 10.8 10^3/ul (3.5-10.8)
[2017-05-31 22:34] LABS: EGFR Non-African American 74.5 (>60)
--- NOTE | 2017-05-31 22:49 | ED ---
Jailene Dyer Edward, scribed for Phoenix Kapoor MD on 05/31/17 at 1851 . Skin Complaint - HPI Summary HPI Summary: 31 y/o female presents to the ED c/o rash for the past month, getting progressively worse, that moved from her legs up diffusely over her body. The rash is pruritic. Pt also c/o abscesses behind her neck as a result of the rash. Associated sx: fatigue, hot/cold flashes. Pt states that the first skin c/ o she had was a mole that she scratched off. Pt was seen multiple times in the ED in the past month. Pt sent by Dr. Hernandez. Pt has been on abx for the past week. PMHx Hep C. - History of Current Complaint Chief Complaint: EDGeneral Time Seen by Provider: 05/31/17 18:42 Stated Complaint: POSSIBLE BLOOD INFECTION Hx Obtained From: Patient Hx Last Menstrual Period: 04/20/17 Onset/Duration: Started Weeks Ago, Still Present Timing: Constant Pain Intensity: 0 Skin Location: Diffuse Character: Pruritus Aggravating Symptom(s): Nothing Alleviating Symptom(s): Nothing Associated Signs & Symptoms: Weakness - fatigue, Rash - Additional Pertinent History Primary Care Physician: [id number] - Allergy/Home Medications Allergies/Adverse Reactions: Allergies Allergy/AdvReac Type Severity Reaction Status Date / Time No Known Allergies Allergy Verified 05/26/17 07:24 Home Medications: Home Medications Buprenorphine/Naloxone SL TAB* [Suboxone 8-2 mg SL TAB*] 1 tab SL BID 05/31/17 [ History Confirmed 05/31/17] Clindamycin Cap(NF) [Clindamycin Cap 300 mg Cap(NF)] 300 mg PO Q6H 05/31/17 [ History Confirmed 05/31/17] Gabapentin CAP(*) [Neurontin 300 CAP(*)] 300 mg PO BID 05/31/17 [History Confirmed 05/31/17] Gabapentin CAP(*) [Neurontin 300 CAP(*)] 600 mg PO BEDTIME 05/31/17 [History Confirmed 05/31/17] Naproxen TAB* [Naprosyn 375 mg TAB*] 500 mg PO BID 05/31/17 [History Confirmed 05/31/17] hydrOXYzine HCL TAB* [Atarax 25 MG TAB*] 25 mg PO Q8H 05/31/17 [History Confirmed 05/31/17] lamoTRIgine TAB(*) [LaMICtal TAB(*)] 100 mg PO BEDTIME 05/31/17 [History Confirmed 05/31/17] predniSONE TAB* [Deltasone TAB*] 10 mg PO DAILY 05/31/17 [History Confirmed ] PMH/Surg Hx/FS Hx/Imm Hx Previously Healthy: No Endocrine/Hematology History: Denies: Hx Diabetes, Hx Thyroid Disease, Hx Anemia Cardiovascular History: Denies: Hx Congestive Heart Failure, Hx Hypertension, Hx Pacemaker/ICD Respiratory History: Denies: Hx Asthma, Hx Chronic Bronchitis - had bronchitis twice, Hx Chronic Obstructive Pulmonary Disease (COPD) GI History: Reports: Other GI Disorders - Takes Protonix Denies: Hx Ulcer History: Reports: Hx Kidney Infection - at age 15 or so, not in years Denies: Hx Renal Disease Comment Only: Other Problems/Disorders - Recent UTI Musculoskeletal History: Reports: Other Musculoskeletal History - knees and foot have cartilage problems Sensory History: Reports: Hx Contacts or Glasses - a little nearsighted Denies: Hx Hearing Aid Opthamlomology History: Reports: Hx Contacts or Glasses - a little nearsighted Psychiatric History: Reports: Hx Attention Deficit Hyperactivity Disorder, Hx Depression, Hx Post Traumatic Stress Disorder, Hx Inpatient Treatment - Pt came from a dual dia facility as SW understands, Hx Substance Abuse Denies: Hx Eating Disorder, Hx Panic Disorder, Hx Suicide Attempt, Hx of Violent Episodes Against Others - Surgical History Surgery Procedure, Year, and Place: Bone spurs and bunion removed on feet. Infectious Disease History: No Infectious Disease History: Reports: Hx Hepatitis - type C Denies: Hx Human Immunodeficiency Virus (HIV), Traveled Outside the [place] in Last 30 Days - Family History Known Family History: Positive: Hypertension, Diabetes, Other - lung cancer - Social History Alcohol Use: None Alcohol Amount: none that pt reports Substance Use Type: Reports: Cocaine, Marijuana, Other Substance Use Comment - Amount & Last Used: occasionally Smoking Status (MU): Light Every Day Tobacco Smoker Type: Cigarettes Amount Used/How Often: 1/2 pack a day, formerly more Length of Time of Smoking/Using Tobacco: 13 years Have You Smoked in the Last Year: Yes Review of Systems Positive: Fatigue, Other - hot/cold flashes Eyes: Negative ENT: Negative Cardiovascular: Negative Respiratory: Negative Gastrointestinal: Negative Genitourinary: Negative Musculoskeletal: Negative Positive: Rash, Other - abscess behind neck Neurological: Negative Psychological: Normal All Other Systems Reviewed And Are Negative: Yes Physical Exam Triage Information Reviewed: Yes Vital Signs On Initial Exam: Initial Vitals Temp Pulse Resp BP Pulse Ox 98.1 F 105 18 126/74 99 05/31/17 17:38 05/31/17 17:38 05/31/17 17:38 05/31/17 17:38 05/31/17 17:38 Vital Signs Reviewed: Yes Appearance: Positive: Well-Appearing, No Pain Distress Skin: Positive: Warm, Skin Color Reflects Adequate Perfusion, Dry Head/Face: Positive: Normal Head/Face Inspection Eyes: Positive: EOMI, YOLANDA ENT: Positive: Normal ENT inspection Neck: Positive: Supple, Nontender, Other: - Abscess @ back of her neck Respiratory/Lung Sounds: Positive: Clear to Auscultation, Breath Sounds Present Cardiovascular: Positive: RRR Abdomen Description: Positive: Nontender, Soft Bowel Sounds: Positive: Present Musculoskeletal: Positive: Normal, Strength/ROM Intact Neurological: Positive: Normal, Sensory/Motor Intact, Alert, Oriented to Person Place, Time Psychiatric: Positive: Affect/Mood Appropriate Diagnostics - Vital Signs Vital Signs Temp Pulse Resp BP Pulse Ox 05/31/17 17:38 98.1 F 105 18 126/74 99 - Laboratory Result Diagrams: 05/31/17 21:30 05/31/17 21:30 Lab Statement: Any lab studies that have been ordered have been reviewed, and results considered in the medical decision making process. - EKG 1 EKG Interpretation: 19:15 - SR @ [address] BPM. No ectopy. Minimal ST depression, diffuse leads Course/Dx - Course Course Of Treatment: ADMIT HOSPITALIST STABLE. - Diagnoses Provider Diagnoses: MRSA (methicillin resistant Staphylococcus aureus) infection, Abscess Discharge - Discharge Plan Condition: Stable Disposition: ADMITTED TO [facility] documentation as recorded by the Jailene regan Edward accurately reflects the service I personally performed and the decisions made by , Phoenix Kapoor MD.
--- NOTE | 2017-05-31 23:36 | HP ---
ADMISSION HISTORY AND PHYSICAL: DATE OF ADMISSION: 05/31/17 PRIMARY CARE PHYSICIAN: Vinod Washington MD INFECTIOUS DISEASE SPECIALIST: Dr. Tad Schmidt. ADMITTING PHYSICIAN: My admitting for today is Dr. Juan R Doyle * (DICTATED BY ORION MILIAN NP) CHIEF COMPLAINT: Rash and skin infection. HISTORY OF PRESENT ILLNESS: This is a 31-year-old female patient with a complex history of IV drug abuse and anxiety, behavioral disorders in the past, who had presented, it appears with some soft tissue infection that she had been treating kind of on her own at home with bacitracin. She has multiple scratch wounds across her body and especially around the area of her neck and her hairline. As earlier this month, the neck was cultured and showed MRSA positive in the wounds in the neck and then also had a positive blood culture on 05/25/17. Also, positive urine culture, positive blood culture was positive for MRSA. Also, on 05/26/17, shows E. coli infection. The patient was referred to the emergency department for treatment of her blood infection, also of significant note her renal function is mildly elevated, unsure whether this is secondary to current infection, perhaps dehydration. At this point, the patient was seen and examined. She was having difficulty with behavioral problems, security was actually in the room at the time I was examining the patient. She has very heightened anxiety disorder and again some psychiatric history, apparently she was admitted back in March for inpatient psych for suicidal ideation and also withdrawal symptoms. The patient has been on Suboxone therapy for some time; however, she currently states that she has been clean for some time now and is taking Suboxone which has been helping. She is also working full-time. The patient initially was trying to leave against medical advice, however she has now decided to stay and understands that it is in her best interest to receive treatment especially IV antibiotics for these multiple infections. PAST MEDICAL HISTORY: As stated in the HPI. PAST SURGICAL HISTORY: None. ALLERGIES: No known drug allergies. FAMILY HISTORY: Noncontributory. SOCIAL HISTORY: The patient smokes 1 pack of cigarettes a day for 10 years, again IV drug use. In the past, denies any current alcohol use or abuse. Lives with her boyfriend and again is working full-time now. REVIEW OF SYSTEMS: A 10-point review of systems is negative except as noted in the HPI. PHYSICAL EXAMINATION GENERAL: The patient is alert, incredibly anxious, but otherwise well appearing. VITAL SIGNS: Currently, blood pressure 126/74, heart rate 105, temperature 98.1 , respiratory rate 18, O2 saturation 99% on room air. HEENT: The patient is atraumatic, normocephalic. PERRLA with nonicteric sclerae. NECK: Supple, nontender. No thyromegaly appreciated. No carotid bruits noted. She has multiple circular wounds and scratches in the anterior portion of the lower neck and one localized appears to be an abscess, it is not fluctuant however in the lower part of the hairline, underneath the neck. Also multiple other scratch yoon again throughout the area of the back of the neck and also to her anterior shins. LUNGS: Clear bilaterally to auscultation with no wheezing, rhonchi or rales. CARDIOVASCULAR: S1, S2 present. No murmurs, gallops or rubs noted. ABDOMEN: Soft, nontender, nondistended. No organomegaly appreciated. No carotid bruits auscultated. : Deferred. EXTREMITIES: There is no clubbing and no cyanosis. No edema. She has +2 distal pulses intact. Again, as noted in her skin assessment, she has multiple scratch wounds of the arms and the anterior shins. NEUROLOGIC: She is grossly intact with no focal deficits. PSYCHIATRIC: She is very anxious, somewhat impulsive at times, inappropriate, however currently she is seeming little more calm after being examined. DIAGNOSTIC STUDIES/LAB DATA: We were not able to obtain labs yet; however, labs dated most recently on 05/26/17. Again, positive blood culture on and positive urine culture for E. coli on 05/26/17. WBCs, on 05/26/17, are 15, RBCs 4.01, hemoglobin 13, hematocrit 38, platelets 287. Chemistry: Sodium is 133, potassium 4.9, chloride 102, CO2 25, creatinine 1.54, GFR is 39, glucose 90, lactic acid is 1.0, calcium 7.4. CRP is 89.8. Total protein 7, albumin 3.9. ALT 21, AST 17, alk phos 67. Urinalysis shows yellow cloudy urine , negative for glucose, pH of 7, nitrites are positive, specific gravity 1.00, 1 + blood, also 1+ wbc's, 3+ rbc's, and 3+ bacteria. Imaging: She had a CT of soft tissues of the neck on 05/26/17 showing soft tissue swelling involving the right trapezius muscle and the right semispinalis capitis muscle with subcutaneous edema and skin thickening consistent with phlegmonous changes. No drainable fluid collection is noted. She has some subcutaneous air noted presumably from prior instrumentation. IMPRESSION: This is a 31-year-old female patient with now positive blood culture and urine cultures, being admitted for antibiotic therapy and treatment of her wounds. PLAN: The patient will be admitted to inpatient. We will start her on vancomycin based on previous susceptibilities, also cefazolin for her E. coli UTI, again this is based on her susceptibilities from 05/26/17. We will continue her on her home medications, which include gabapentin 300 mg in the morning, 600 mg q.h.s.; Suboxone 8 mg 2 times a day; hydroxyzine q.8 hours as needed for anxiety; also, start her on some melatonin for sleep at night; IV Benadryl 25 mg q.8 hours as needed for itching. We will continue her home dose lamotrigine 100 mg at bedtime and also add betamethasone dipropionate cream, apply 2 times a day to her wounds. I have also consulted Wound Care to evaluate. Her wound seemed to be very dry and excoriated, not fluctuant; however, there may be some additional wound care that would help alleviate some of the abscesses that she currently have. We have also consulted Dr. Tad Schmidt, who has seen her as an outpatient. She was taking p.o. clindamycin. We will hold on the clindamycin for now and wait for Dr. Schmidt to further evaluate and determine if he wants to keep her on the clindamycin or not. Rest of the patient's course will be determined by further diagnostics, laboratories , and any other input from other providers is warranted during this admission. TIME SPENT: I have spent in excess of 60 minutes admitting the patient, face-to - face and also evaluating her chart. The patient states that her medical healthcare proxy is her boyfriend. DVT prophylaxis is low risk, as such she is ambulatory and would not require heparin. She is also a full code. ORION MILIAN, ACUPRESSURE THERAPIST [id number]/[facility] #: [id number] [facility]AI HOSPITALAldair
[2017-05-31] MEDS: Gabapentin CAP(*) 300 MG PO SCH ×2 (23:41→23:42)
[2017-05-31] MEDS: lamoTRIgine TAB(*) 100 MG PO SCH (23:42)
[2017-05-31] MEDS: hydrOXYzine HCL TAB* 25 MG PO SCH (23:42)
[2017-05-31] MEDS: Clobetasol 0.05% OINT* 30 GM TUBE TOPICAL SCH (23:44)
[2017-06-01] MEDS ORDERED: Mouth Piece, Nicotine* 1 EACH CARTRIDGE INH PRN (01:01)
[2017-06-01] MEDS: Nicotine Inhaler* 10 MG AMP INH PRN ×4 (01:31→20:12)
[2017-06-01] MEDS: diPHENhydraMINE IV* 50 MG/ML 1 ml VIAL (BENADRYL) IV PRN ×4 (02:35→23:59)
[2017-06-01] MEDS: NS 0.9% 1000 ML* 1,000 ML IV SCH ×2 (04:25→23:58)
[2017-06-01] MEDS: hydrOXYzine HCL TAB* 25 MG PO SCH ×3 (05:28→18:20)
[2017-06-01 06:32] LABS: ABS Basophils 0 10^3/ul (0-0.2); ABS Eosinophils 0.2 10^3/ul (0-0.6); ABS Lymphocytes 3.2 10^3/ul (1.0-4.8); ABS Monocytes 0.9 10^3/ul (0-0.8); ABS Neutrophils 4.6 10^3/ul (1.5-7.7); ABS Nucleated RBC 0 10^3/ul; Eosinophil % 1.7 % (0-6); Hematocrit 37 % (35-47); Hemoglobin 12.2 g/dl (12.0-16.0); Lymphocyte % 36.1 % (25-47); Mean Corpuscular HGB Conc 33 g/dl (31-36); Mean Corpuscular Hemoglobin 32 pg (27-31); Mean Corpuscular Volume 98 fL (80-97); Mean Platelet Volume 9 um3 (7.4-10.4); Nucleated Red Blood Cells % 0.2; Platelet Count 287 10^3/ul (150-450); Red Blood Count 3.78 10^6/ul (4.0-5.4); Red Cell Distribution Width 13 % (10.5-15); White Blood Count 8.8 10^3/ul (3.5-10.8)
--- NOTE | 2017-06-01 08:22 | PN ---
Subjective Date of Service: 06/01/17 Interval History: Patient seen and examined at bedside. Denies fever, chills, shortness of breath , chest discomfort, N/V/D, urinary symptoms (urgency, frequency or dysuria). Pt reports that she found a lump in her left breast, she has a history of them in the past and they typically go away on there own. Family History: Unchanged from Admission Social History: Unchanged from Admission Past Medical History: Unchanged from Admission Objective Active Medications: Buprenorphine/Naloxone (Suboxone 8-2 Mg Sl Tab*) 1 tab.sl SL BID [facility] Clobetasol Propionate (Clobetasol 0.05% Oint*) 1 applic TOPICAL BID [facility] Device (Nicotine Mouth Piece*) 1 each INH .USE WITH NICOTROL PRN Reason: CRAVING Diphenhydramine HCl (Benadryl Iv*) 25 mg IV Q6H PRN Reason: PRURITIS Gabapentin (Neurontin Cap(*)) 300 mg PO BID [facility] Gabapentin (Neurontin Cap(*)) 600 mg PO BEDTIME [facility] Hydroxyzine HCl (Atarax Tab*) 25 mg PO Q8H [facility] Sodium Chloride (Ns 0.9% 1000 Ml*) 1,000 mls @ 75 mls/hr IV PER RATE [facility] Vancomycin HCl 1,000 mg/ (Sodium Chloride) 250 mls @ 166.667 mls/hr IVPB Q12H [facility] Cefazolin Sodium 1 gm/ Sterile (Water) 10 mls @ 60 mls/hr IVPB 0400,1200,2000 [facility] Lamotrigine (Lamictal Tab(*)) 100 mg PO BEDTIME [facility] Melatonin (Melatonin (Nf)) 3 mg PO BEDTIME [facility] Nicotine (Nicotine Inhaler*) 10 mg INH Q2H PRN Reason: CRAVING Pharmacy Consult (Vancomycin Per Pharmacy*) 1 note FOLLOW UP .VANC PER PHARMACY [facility] Pharmacy Profile Note (Vancomycin Trough Check) 1 note FOLLOW UP 1130 ONE Stop: 06/02/17 11:31 Pneumococcal Polyvalent Vaccine (Pneumococcal Vac 23-Polyvalent*) 0.5 ml IM .ONCE ONE Stop: 06/01/17 09:01 Vital Signs - 8 hr 06/01/17 06/01/17 06/01/17 02:35 04:29 04:30 Respiratory 16 16 16 Rate Oxygen Devices in Use Now: None Appearance: NAD, sitting up in bed Ears/Nose/Mouth/Throat: Mucous Membranes Moist Respiratory: Symmetrical Chest Expansion and Respiratory Effort, Clear to Auscultation Cardiovascular: NL Sounds; No Murmurs; No JVD, RRR Abdominal: NL Sounds; No Tenderness; No Distention Extremities: No Edema Skin: - - Pt with a small round "lump" (smaller than a pea) at 12 o'clock above the left areola. Multiple areas of scabs at left clavicle and posterior neck. Neurological: Alert and Oriented x 3, NL Muscle Strength and Tone Lines/Tubes/Other Access: Clean, Dry and Intact Peripheral IV - site benign Nutrition: Taking PO's Result Diagrams: 06/01/17 05:47 06/01/17 09:25 Assess/Plan/Problems-Billing Assessment: Ms. Boggs is a 31 yo female with PMH significant for IV drug abuse and anxiety who presented to the emergency room with complaints of a skin infection. - Patient Problems (1) Skin infection Code(s): L08.9 - LOCAL INFECTION OF THE SKIN AND SUBCUTANEOUS TISSUE, UNSP SNOMED Code(s): 726626929 Comment: - No leukocytosis, afebrile since admission - ID consult pending - Continue Vanco (2) Bacteremia Code(s): R78.81 - BACTEREMIA SNOMED Code(s): 3570237 Comment: - MRSA 1/4 positive in blood cultures from 05/25 - Repeat blood cultures, pending - ID consult pending - Continue vancomycin (3) UTI (urinary tract infection) Comment: - Ecoli from urine culture on 05/26 - Asymptomatic - Stop cefazolin (4) FILIBERTO (acute kidney injury) Code(s): N17.9 - ACUTE KIDNEY FAILURE, UNSPECIFIED SNOMED Code(s): 70364783 Comment: - Resolved (5) Anxiety Code(s): F41.9 - ANXIETY DISORDER, UNSPECIFIED SNOMED Code(s): 49718174 Comment: - Continue lamictal and neurontin (6) Breast lump on left side at 12 o'clock position Code(s): N63.20 - UNSPECIFIED LUMP IN THE LEFT BREAST, UNSPECIFIED QUADRANT SNOMED Code(s): 27631082 Comment: - Outpatient follow-up (7) IV drug abuse Code(s): F19.10 - OTHER PSYCHOACTIVE SUBSTANCE ABUSE, UNCOMPLICATED SNOMED Code(s): 000226554 Comment: - Continue suboxone (8) Hepatitis C Comment: - Follow-up with Dr. Schmidt outpatient (9) Tobacco abuse Code(s): Z72.0 - TOBACCO USE SNOMED Code(s): 218991385 Comment: - Continue Nicotine replacement (10) DVT prophylaxis Code(s): BDV2694 - SNOMED Code(s): 241349919 Comment: - Encourage ambulation (11) Full code status Code(s): Z78.9 - OTHER SPECIFIED HEALTH STATUS SNOMED Code(s): 721808525 Status and Disposition: Inpatient. Discharge to home when medically stable.
[2017-06-01] MEDS ORDERED: Pneumococcal *Vac Polyvalent 0.5 ML VIAL IM ONE (09:00)
[2017-06-01] MEDS: Buprenorphine/Naloxone 8-2 MG SL TAB* 1 TAB SL SCH ×2 (09:41→20:11)
[2017-06-01] MEDS: Gabapentin CAP(*) 300 MG PO SCH ×2 (09:41→20:09)
[2017-06-01] MEDS: Clobetasol 0.05% OINT* 30 GM TUBE TOPICAL SCH ×3 (09:42→20:12)
--- NOTE | 2017-06-01 11:36 | ECHO ---
Patient: ELIAS SHERMAN [facility] Rec#: [id number] : 1985 Date: 06/01/2017 Age: 31y Height: 149.86 cm / 59.0 in Weight: 49.44 kg / 109.0 lbs Sex: F BSA: 1.42 Room#: [facility] Admit Date#: 05/31/2017 Type: Inpatient Referring: Tad Schmidt MD Reading: Yahir Sotelo DO [employer] Installer: Cecelia Weldon RDCS CC: Vinod Washington MD Transthoracic Echocardiogram Indication: Bacteremia, + BC S. aureus. BP: 107/64 HR: 70 Rhythm: NSR Findings History: IVDA, Hep. C, smoker, + BC S. aureus 05/25/17. Technical Comments: The study quality is fair. Left Ventricle: The left ventricular chamber size is normal. There is no left ventricular hypertrophy. Global left ventricular wall motion and contractility are within normal limits. There is normal left ventricular systolic function. The estimated ejection fraction is 55-60%. Normal left ventricular diastolic filling is observed. Left Atrium: The left atrium is mildly dilated. Right Ventricle: The right ventricular chamber size and systolic function are within normal limits. Right Atrium: The right atrial cavity size is normal. Aortic Valve: The aortic valve is trileaflet. There is no evidence of aortic valve thickening. There is no evidence of aortic regurgitation. There is no evidence of aortic stenosis. There is no aortic vegetation present. Mitral Valve: The mitral valve leaflets are mildly thickened. There is a trace of mitral regurgitation. There is no evidence of mitral stenosis. Tricuspid Valve: The tricuspid valve leaflets are normal. There is a physiologic tricuspid regurgitation. No pulmonary hypertension is noted. There is no tricuspid stenosis. No vegetation is observed on the tricuspid valve. Pulmonic Valve: The pulmonic valve structure is not well visualized.although appears normal to the degree visualized. There is mild pulmonic regurgitation. There is no pulmonic stenosis. Pericardium: There is no significant pericardial effusion. Aorta: There is no dilatation of the ascending aorta. There is no dilatation of the aortic arch. The aortic root is normal in size. Pulmonary Artery: The main pulmonary artery appears normal. Venous: The inferior vena cava appears normal in size. There is a greater than 50% respiratory change in the inferior vena cava dimension. Conclusions The left ventricular chamber size is normal. There is no left ventricular hypertrophy. There is normal left ventricular systolic function. The estimated ejection fraction is 55-60%. The left atrium is mildly dilated. The right ventricular chamber size and systolic function are within normal limits. The mitral valve leaflets are mildly thickened. There is mild pulmonic regurgitation. There is no obvious vegetation noted on fair quality transthoracic imaging. There is no significant pericardial effusion. Compared to prior study from 07/2013, no significant changes noted. Measurements Name Value Normal Range RVIDd (AP) 2D 2.5 cm (0.9 - 2.6) RVDdMajor (2D) 3.2 cm (2.2 - 4.4) RAd ISD 4CH 4.9 cm (3.4 - 4.9) RA (A4C)W 3.1 cm (2.9 - 4.6) IVSd (2D) 0.9 cm (0.6 - 1) LVPWd (2D) 0.9 cm (0.6 - 1) LVIDd (2D) 4.4 cm (3.6 - 5.4) LVIDs (2D) 3 cm - LV FS (2D) 33 % (25 - 45) Aortic Annulus 1.9 cm (1.4 - 2.6) Ao root diameter (2D) 2.2 cm (2.1 - 3.5) Ascending Ao 2.2 cm (2.1 - 3.4) Aortic arch 1.7 cm (1.8 - 3.4) LA dimension (AP) 2D 3.9 cm (2.3 - 3.8) LAd ISD 4CH 4.9 cm (2.9 - 5.3) LA ISD 4CH W 4.3 cm (2.5 - 4.5) Name Value Normal Range LA ESV SP 4CH (A/L) 57 ml - LA ESV SP 2CH (A/L) 51 ml - LA ESV BP (A/L) 55 ml - LA ESV BP (A/L) index 38 ml/m2 - LA ESV SP 4CH (MOD) 55 ml - LA ESV SP 2CH (MOD) 50 ml - Name Value Normal Range MV E-wave Vmax 1.1 m/sec - MV deceleration time 175.89 msec - MV A-wave Vmax 0.64 m/sec - MV E:A ratio 1.71 ratio - LV septal e' Vmax 0.15 m/sec - LV lateral e' Vmax 0.15 m/sec - LV E:e' septal ratio 7.33 ratio - LV E:e' lateral ratio 7.33 ratio - Name Value Normal Range AV Vmax 1.4 m/sec - AV VTI 28.21 cm - AV peak gradient 7.97 mmHg - AV mean gradient 4.08 mmHg - LVOT Vmax 1.18 m/sec - LVOT VTI 23.53 cm - LVOT peak gradient 5.6 mmHg - LVOT mean gradient 2.82 mmHg - EDMUND Vmax 1.3 m/sec - Name Value Normal Range TR Vmax 2 m/sec - TR peak gradient 16 mmHg - RAP 3 mmHg - RVSP 19 mmHg - IVC diameter 2 cm - Name Value Normal Range PV Vmax 0.84 m/sec - PV peak gradient 2.81 mmHg - NV end-diastolic Vmax 0.8 m/sec -
[2017-06-01] MEDS ORDERED: ceFAZolin 1 GM/10 ML SYRINGE IVPB Q8H IVPB SCH ×2 (12:00)
[2017-06-01] MEDS: Vancomycin(*) 1,000 MG in NS 0.9% 250 ML* 250 ML IVPB SCH (14:38)
--- NOTE | 2017-06-01 17:10 | CONS ---
CONSULTATION REPORT: DATE OF CONSULT: 06/01/17 REQUESTING PROVIDER: Cecelia Maria NP CONSULTING SERVICE: Infectious Disease. REASON FOR CONSULTATION: MRSA bacteremia. IMPRESSION: 1. MRSA bacteremia, 1 of 4 bottles drawn on 05/25/17 in the emergency room. She had abscess in her neck due to MRSA as well. I think the abscess is due to picking at either another skin lesion or itc hy skin, they are essentially resolved now, but she continues to have night sweats, chills and fever and malaise at home. She does not seem to have any other metastatic focus of infection at this point , but infectious endocarditis is still a consideration if the followup cultures are positive. 2. Hepatitis C, genotype 1A, no treatment in the past. 3. Past injection drug use. 4. Tobacco abuse. RECOMMENDATIONS: 1. Continue vancomycin. We will await the followup blood culture. I will check a transthoracic ech ocardiogram today, but with no peripheral stigmata of endocarditis and only 1 of 4 bottles positive, I think it is a low pretest probability of infective endocarditis. 2. Follow up with me for hepatitis C treatment as an outpatient. 3. HIV antibody. HISTORY OF PRESENT ILLNESS: This is a 31-year-old woman with past injection drug use, anxiety, depre ssion, admitted with MRSA bacteremia. Over the last couple of weeks, she had developed what she felt was a mole in her neck. She picked and picked that until it ripped off and she started bleeding and then that area got infected, draining pus. She was on Bactrim as an outpatient. She was in the [facility] because of fever and malaise. Blood cultures were taken at the as well as a urine cu lture. Blood cultures, 1 of 2 bottles grew MRSA. Followup cultures on the were negative. She c ontinued to have fever and malaise. Clindamycin was added to her regimen. The area on her neck drain ed some serous fluid. She itched some more and developed some more areas on other parts of her neck. She was seen by a access liaison yesterday who noted that she had ongoing fever, malaise and found t o have positive blood culture. She was recommended to come back to the emergency room. She was admi tted last night. She had been on vancomycin and Ancef. She has had a temp of 37.8 last night. Bloo d cultures taken are pending. She has no urinary frequency or dysuria. She has no spine tenderness, no spine pain and no joint pain. She has no prosthetic material present except for a fixation devic e in her foot which has not been bothering her. PAST MEDICAL HISTORY: MRSA bacteremia in 2014, anxiety, depression, locally advanced cervical cancer with bilateral hydronephrosis status post left nephrostomy tube and transurethral resection of the b ladder tumor and right ureteral stent. MEDICATIONS: 1. Suboxone. 2. Clobetasol. 3. Gabapentin. 4. Hydroxyzine. 5. Melatonin. 6. Vancomycin 1 g every 12 hours. ALLERGIES: No known drug allergies. FAMILY HISTORY: No recurrent infections. SOCIAL HISTORY: She lives in [place] with her boyfriend. She is a smoker interested in quitting. She works at a [employer]. She has past injection drug use, not currently. REVIEW OF SYSTEMS: All negative to 14-point review of systems except as noted above. PHYSICAL EXAM: Vital Signs: Temperature is 37, heart rate 80, respiratory rate 18, blood pressure 1 07/64, oxygen saturation 100% on room air. In general, she is awake, not in distress. Neurologic: She is oriented x3, follows all commands, moves all 4 extremities. HEENT: There is no conjunctival hemorrhage. Oropharynx without lesions. Neck: Supple without nuchal rigidity or mass. Lymph Nodes : There is no cervical, supraclavicular, inguinal, axillary, or epitrochlear lymphadenopathy. Heart i s regular rate and rhythm without murmurs, rubs or gallops. Lungs are clear to auscultation bilateral ly. Abdomen: Soft, nontender, nondistended. There are bowel sounds present. Skin: On the posteri or neck, there are shallow open areas from excoriation with no drainage and no fluctuance. Some esch ar. Musculoskeletal: There is no spine tenderness to palpation. No joint synovitis. LABORATORY DATA: White blood cell count 18, hemoglobin 12, platelets 287,000. Creatinine is 0.9. HC G 0. Urine, cocaine and cannabinoids positive. Please see impression and recommendations outlined above, which I discussed with Cecelia holloway NP. Thank you for asking me to see Ms. Boggs in consultation. [id number]/[facility] #: [id number]
[2017-06-01] MEDS ORDERED: Docusate CAP* 100 MG PO PRN (18:47)
[2017-06-01] MEDS: lamoTRIgine TAB(*) 100 MG PO SCH (20:10)
[2017-06-01] MEDS: Nicotine GUM* 2 MG PO PRN (20:12)
[2017-06-02] MEDS: Vancomycin(*) 1,000 MG in NS 0.9% 250 ML* 250 ML IVPB SCH ×2
[2017-06-02] MEDS: hydrOXYzine HCL TAB* 25 MG PO SCH ×2 (00:03→06:24)
[2017-06-02] MEDS: Nicotine Inhaler* 10 MG AMP INH PRN ×3 (02:15→09:11)
[2017-06-02] MEDS: Nicotine GUM* 2 MG PO PRN ×2 (06:23→09:12)
[2017-06-02] MEDS: diPHENhydraMINE IV* 50 MG/ML 1 ml VIAL (BENADRYL) IV PRN (06:28)
[2017-06-02 07:28] LABS: ABS Basophils 0 10^3/ul (0-0.2); ABS Eosinophils 0.2 10^3/ul (0-0.6); ABS Lymphocytes 3.1 10^3/ul (1.0-4.8); ABS Monocytes 0.8 10^3/ul (0-0.8); ABS Neutrophils 2.7 10^3/ul (1.5-7.7); ABS Nucleated RBC 0 10^3/ul; Eosinophil % 3.5 % (0-6); Hematocrit 34 % (35-47); Hemoglobin 11.7 g/dl (12.0-16.0); Lymphocyte % 44.9 % (25-47); Mean Corpuscular HGB Conc 35 g/dl (31-36); Mean Corpuscular Hemoglobin 33 pg (27-31); Mean Corpuscular Volume 95 fL (80-97); Mean Platelet Volume 9 um3 (7.4-10.4); Nucleated Red Blood Cells % 0; Platelet Count 280 10^3/ul (150-450); Red Blood Count 3.54 10^6/ul (4.0-5.4); Red Cell Distribution Width 13 % (10.5-15)
[2017-06-02 07:48] LABS: EGFR Non-African American 92.4 (>60)
[2017-06-02 08:24] VITALS: BP 106/58
[2017-06-02] MEDS ORDERED: Gabapentin CAP(*) 300 MG PO SCH (09:00)
[2017-06-02] MEDS: Buprenorphine/Naloxone 8-2 MG SL TAB* 1 TAB SL SCH (09:09)
[2017-06-02] MEDS: Clobetasol 0.05% OINT* 30 GM TUBE TOPICAL SCH (09:13)
--- NOTE | 2017-06-02 09:23 | PN ---
Subjective Date of Service: 06/02/17 Interval History: Patient seen and examined at bedside. Denies fever, chills, shortness of breath , chest discomfort, N/V/D. Pt reports continued night sweats. Family History: Unchanged from Admission Social History: Unchanged from Admission Past Medical History: Unchanged from Admission Objective Active Medications: Buprenorphine/Naloxone (Suboxone 8-2 Mg Sl Tab*) 1 tab.sl SL BID [facility] Clobetasol Propionate (Clobetasol 0.05% Oint*) 1 applic TOPICAL BID [facility] Device (Nicotine Mouth Piece*) 1 each INH .USE WITH NICOTROL PRN Reason: CRAVING Diphenhydramine HCl (Benadryl Iv*) 25 mg IV Q6H PRN Reason: PRURITIS Docusate Sodium (Colace Cap*) 100 mg PO BID PRN Reason: CONSTIPATION Gabapentin (Neurontin Cap(*)) 600 mg PO BEDTIME [facility] Gabapentin (Neurontin Cap(*)) 300 mg PO 0900,1300 [facility] Hydroxyzine HCl (Atarax Tab*) 25 mg PO Q6H [facility] Sodium Chloride (Ns 0.9% 1000 Ml*) 1,000 mls @ 75 mls/hr IV PER RATE [facility] Vancomycin HCl 1,000 mg/ (Sodium Chloride) 250 mls @ 166.667 mls/hr IVPB Q12H [facility] Lamotrigine (Lamictal Tab(*)) 100 mg PO BEDTIME [facility] Melatonin (Melatonin (Nf)) 3 mg PO BEDTIME [facility] Nicotine (Nicotine Inhaler*) 10 mg INH Q2H PRN Reason: CRAVING Nicotine Polacrilex (Nicotine Gum*) 2 mg PO Q2H PRN Reason: CRAVING Pharmacy Consult (Vancomycin Per Pharmacy*) 1 note FOLLOW UP .VANC PER PHARMACY [facility] Pharmacy Profile Note (Vancomycin Trough Check) 1 note FOLLOW UP 1130 ONE Stop: 06/02/17 11:31 Vital Signs - 8 hr 06/02/17 06/02/17 06/02/17 02:08 03:33 06:28 Temperature 98.4 F Pulse Rate 81 Respiratory 16 16 18 Rate Blood Pressure 100/50 (mmHg) O2 Sat by Pulse 97 Oximetry 06/02/17 06/02/17 06/02/17 07:38 07:51 07:55 Temperature 98.1 F Pulse Rate 64 Respiratory 16 18 16 Rate Blood Pressure 106/58 (mmHg) O2 Sat by Pulse 100 Oximetry Oxygen Devices in Use Now: None Appearance: NAD, sitting up in bed Ears/Nose/Mouth/Throat: Mucous Membranes Moist Respiratory: Symmetrical Chest Expansion and Respiratory Effort, Clear to Auscultation Cardiovascular: NL Sounds; No Murmurs; No JVD, RRR Abdominal: NL Sounds; No Tenderness; No Distention Extremities: No Edema Skin: - - Open areas to posterior neck and left clavicle Neurological: Alert and Oriented x 3, NL Muscle Strength and Tone Lines/Tubes/Other Access: Clean, Dry and Intact Peripheral IV - site benign Nutrition: Taking PO's Result Diagrams: 06/02/17 07:03 06/02/17 07:03 Microbiology and Other Data: Microbiology 05/31/17 21:30 Aerobic Blood Culture - Preliminary Blood Venous No Growth Day 1 Anaerobic Blood Culture - Preliminary No Growth Day 1 05/31/17 21:30 Aerobic Blood Culture - Preliminary Blood Venous No Growth Day 1 Anaerobic Blood Culture - Preliminary No Growth Day 1 Assess/Plan/Problems-Billing Assessment: Ms. Boggs is a 31 yo female with PMH significant for IV drug abuse and anxiety who presented to the emergency room with complaints of a skin infection. - Patient Problems (1) Skin infection Code(s): L08.9 - LOCAL INFECTION OF THE SKIN AND SUBCUTANEOUS TISSUE, UNSP SNOMED Code(s): 412310767 Comment: - No leukocytosis, afebrile since admission - ID consult, input appreciated - Change Vanco to bactrim (2) Bacteremia Code(s): R78.81 - BACTEREMIA SNOMED Code(s): 5180206 Comment: - MRSA 1/4 positive in blood cultures from 05/25 - Repeat blood cultures from 05/26, no growth - Repeat blood cultures, no growth day 1 - ID consult, input appreciated - Echo, no vegetation seen - Change vancomycin to bactrim (3) UTI (urinary tract infection) Comment: - Ecoli from urine culture on 05/26 - Asymptomatic - Stop cefazolin (4) FILIBERTO (acute kidney injury) Code(s): N17.9 - ACUTE KIDNEY FAILURE, UNSPECIFIED SNOMED Code(s): 37666685 Comment: - Resolved (5) Anxiety Code(s): F41.9 - ANXIETY DISORDER, UNSPECIFIED SNOMED Code(s): 15670425 Comment: - Continue lamictal and neurontin (6) Breast lump on left side at 12 o'clock position Code(s): N63.20 - UNSPECIFIED LUMP IN THE LEFT BREAST, UNSPECIFIED QUADRANT SNOMED Code(s): 12244809 Comment: - Outpatient follow-up (7) IV drug abuse Code(s): F19.10 - OTHER PSYCHOACTIVE SUBSTANCE ABUSE, UNCOMPLICATED SNOMED Code(s): 714276817 Comment: - Continue suboxone (8) Hepatitis C Comment: - Follow-up with Dr. Schmidt outpatient (9) Tobacco abuse Code(s): Z72.0 - TOBACCO USE SNOMED Code(s): 815235625 Comment: - Continue Nicotine replacement (10) DVT prophylaxis Code(s): CXR4039 - SNOMED Code(s): 218476520 Comment: - Encourage ambulation (11) Full code status Code(s): Z78.9 - OTHER SPECIFIED HEALTH STATUS SNOMED Code(s): 687038495 Status and Disposition: Inpatient. Discharge to home when medically stable, possibly later today.
--- NOTE | 2017-06-02 10:52 | PN ---
Progress Note - Progress Note Date of Service: 06/02/17 SOAP: Subjective: CC: bacteremia HPI: 31 year old woman sent to ER for bacteremia and multiple infected eschar on neck and chest. Fatigue and malaise improving. No rash, fever, or diarrhea. Objective: Vital Signs Temp 36.7 C 06/02/17 07:51 Pulse 64 06/02/17 07:51 Resp 16 06/02/17 09:10 BP 106/58 06/02/17 07:51 Pulse Ox 100 06/02/17 07:51 Intake & Output 06/01/17 06/02/17 06/02/17 18:59 06:59 18:59 Intake Total 1750 0 Output Total 600 Balance 1150 0 Intake: IV Fluids 285 ABX - VANCOMYCIN 285 Oral 1465 0 Output: Urine 600 Other: # Bowel Movements 0 # Voids 2 Gen:awake, no distress HEENT: PERRL, MMM Heart:RRR no murmur Lungs:CTA BL Abd:+BS NTND soft Skin: no rash, few eschar on posterior neck and chest with scant surrounding erythema MSK: no spine tenderness or joint synovitis Laboratory Results - last 24 hr 06/01/17 06/02/17 06/02/17 05:47 07:03 07:03 WBC 7.0 RBC 3.54 L Hgb 11.7 L Hct 34 L MCV 95 MCH 33 H MCHC 35 RDW 13 Plt Count 280 MPV 9 Neut % (Auto) 39.3 Lymph % (Auto) 44.9 Baxter % (Auto) 11.9 H Eos % (Auto) 3.5 Baso % (Auto) 0.4 Absolute Neuts (auto) 2.7 Absolute Lymphs (auto) 3.1 Absolute Monos (auto) 0.8 Absolute Eos (auto) 0.2 Absolute Basos (auto) 0 Absolute Nucleated RBC 0 Nucleated RBC % 0 Sodium 135 Potassium 4.3 Chloride 108 Carbon Dioxide 20 L Anion Gap 7 BUN 11 Creatinine 0.73 Est GFR ( Amer) 118.8 Est GFR (Non-Af Amer) 92.4 BUN/Creatinine Ratio 15.1 Glucose 85 Calcium 8.3 L Total Bilirubin 0.20 AST 20 ALT 16 Alkaline Phosphatase 66 Total Protein 5.9 L Albumin 3.3 Globulin 2.6 Albumin/Globulin Ratio 1.3 HIV 1&2 Antibody Nonreactive Assessment: 1. MRSA bactereami, fu BC negative and neck abscess/cellulitis, improving 2. HCV infection 3. rash Plan: 1. Bactrim DS PO BID x14 days 2. fu with me 2 weeks for fu of MRSA infection and HCV
[2017-06-02] MEDS ORDERED: Vancomycin Trough Check NOTE FOLLOW UP ONE (11:30)
--- NOTE | 2017-06-03 14:56 | DS ---
CC: Dr. Vinod Washington; Dr. Tad Schmidt * DISCHARGE SUMMARY: DATE OF ADMISSION: 05/31/17 DATE OF DISCHARGE: 06/02/17 ATTENDING PHYSICIAN: Dr. Martina Morris * (dictated by Cecelia Rogers NP). PRIMARY CARE PROVIDER: Dr. Vinod Washington. PRIMARY DIAGNOSES: 1. Methicillin-resistant Staphylococcus aureus bacteremia. 2. Hepatitis C. 3. Neck abscess, cellulitis. 4. Rash. 5. Possible scabies infection. SECONDARY DIAGNOSES: 1. History of IV drug abuse. 2. Anxiety. 3. Behavioral disorder. CONSULTATIONS WHILE IN THE HOSPITAL: Dr. Tad Schmidt with Infectious Disease. STUDIES WHILE IN THE HOSPITAL: Transthoracic echocardiogram on 06/01/17. Literary Writer's conclusion: The left ventricular chamber size is normal. There is no left ventricular hypertrophy. There is normal left ventricular systolic function. The estimated ejection fraction is 55% to 60%. The left atrium is mildly dilated. The right ventricular chamber size and systolic function are within normal limits. The mitral leaflets are mildly thickened. There is mild pulmonic regurgitation. There is no obvious vegetation noted on fair quality transthoracic imaging. There is no significant pericardial effusion. Compared to prior study from 08/06/13, no significant change noted. DISCHARGE MEDICATIONS: New home medications: 1. Colace 100 mg oral twice daily as needed for constipation. 2. Nicotine gum 2 mg oral every 2 hours as needed for cravings. 3. Nicotine inhaler 10 mg inhalation every 2 hours as needed for cravings. 4. Bactrim DS 800/160 one tablet oral twice daily for 2 weeks. Continued home medications: 1. Hydroxyzine 25 mg oral every 8 hours as needed for itching. 2. Naproxen 500 mg oral twice daily as needed for pain. 3. Gabapentin 600 mg oral daily at bedtime. 4. Suboxone 8/2 mg sublingual 1 tab sublingual twice daily. 5. Gabapentin 300 mg oral twice daily. 6. Lamictal 100 mg oral daily at bedtime. 7. Permethrin 5% cream applied topical daily. Discontinued home medications: 1. Prednisone. 2. Clindamycin. HISTORY OF PRESENT ILLNESS/HOSPITAL COURSE: Ms. Boggs is a 31-year-old female with past medical history significant for IV drug abuse, anxiety, and behavioral disorder who presented initially to Dermatology for what appeared to be soft tissue infection and had been treating on her own with bacitracin at home in addition to using peroxide on her wounds, with multiple scratch wounds across her body especially around her neck and hairline. Earlier this month, the wounds were cultured showing MRSA positive. The patient also had a MRSA positive blood culture on May 25 with a positive urine culture showing E. coli. The patient was referred to the emergency department for her blood infection as she had also previously noted to have increased renal function. It is still also noted that the the patient was being treated by Dermatology for possible scabies infection with permethrin. While in the emergency room, the patient had blood cultures drawn. She showed no leukocytosis. She had a mild hyponatremia. She was acidotic with a CO2 of 14. Her previous acute kidney injury had resolved. She has had a urine tox showing she was positive for cocaine and marijuana. Hospitalists were asked to evaluate the patient for admission. While in the hospital, she had no leukocytosis. Her hyponatremia resolved. Her acidosis improved. She had an HIV antibody that was negative. She was seen in consultation by Dr. Schmidt. She was initially continued on vancomycin. When her repeat blood cultures returned showing no growth, it was felt that she would be able to be discharged to home on oral antibiotics for 2 weeks. She had an echocardiogram showing no vegetation on the transthoracic echo. Ms. Boggs is stable for discharge to home. Vital signs are as follows; temperature 98.1, heart rate 64, respiratory rate 18, O2 sat 100% on room air, blood pressure 106/58. DISCHARGE PLAN: For the patient's MRSA bacteremia, she will be continued on Bactrim DS twice daily for 14 days. She should follow up with Dr. Schmidt. She has an appointment on June 19 at 2:20 p.m. Additionally, the patient has a followup with her primary care provider, Dr. Washington on 06/05/17 at 10:50 a.m. The patient was complaining of a lot of itching during her stay. She has previously seen Dermatology who had started her on permethrin for possible scabies infection. She was also encouraged to not take hot showers and use moisturizing lotion in addition to as-needed hydroxyzine. She has been resumed on her other usual home medications. She has been encouraged to follow up with Dermatology as previously prescribed followup with her biopsy results. She has also been set up with care in transition and will be receiving a call from nursing staff. She has been encouraged to stop smoking and has been prescribed nicotine replacements in the form of gum and inhalers. The patient was also found to have hepatitis C that has not previously been treated and Dr. Schmidt will follow her and treat her for this as an outpatient. The patient has been asked to return to the emergency room for any chest pain or shortness of breath. This is a summarized report of a complex medical history and hospital stay. For further details, please see the entire medical record. TIME SPENT: Time for this discharge was approximately 50 minutes, greater than half of that was spent with the patient discussing discharge plans and instructions. CONDITION ON DISCHARGE: Stable. Reviewed by CHICO MEEHAN 06/03/17 1749 [id number]/[facility] #: [id number] DENE[place]
== END 2017-06-02 11:10 | disposition home or self-care (01) | DRG 383 ==
LOC: ED 17:36 → MED 20:47
PROVIDERS: ADMIT Hospitalist; ATTEND Internal Medicine
DX: L02.11 Cutaneous abscess of neck (principal); N17.9 Acute kidney failure, unspecified; E87.2 Acidosis; R78.81 Bacteremia; E87.1 Hypo-osmolality and hyponatremia; B86 Scabies; L03.221 Cellulitis of neck; B95.62 Methicillin resistant Staphylococcus aureus infection as the cause of diseases classified elsewhere; F32.9 Major depressive disorder, single episode, unspecified; F90.9 Attention-deficit hyperactivity disorder, unspecified type; F43.10 Post-traumatic stress disorder, unspecified; F14.90 Cocaine use, unspecified, uncomplicated; F12.90 Cannabis use, unspecified, uncomplicated; F17.210 Nicotine dependence, cigarettes, uncomplicated; B96.20 Unspecified Escherichia coli [E. coli] as the cause of diseases classified elsewhere; F41.9 Anxiety disorder, unspecified; N63.20 Unspecified lump in the left breast, unspecified quadrant; E86.0 Dehydration; F91.9 Conduct disorder, unspecified; B19.20 Unspecified viral hepatitis C without hepatic coma; I37.1 Nonrheumatic pulmonary valve insufficiency; F19.10 Other psychoactive substance abuse, uncomplicated; Z85.41 Personal history of malignant neoplasm of cervix uteri; Z87.440 Personal history of urinary (tract) infections; Z82.49 Family history of ischemic heart disease and other diseases of the circulatory system; Z83.3 Family history of diabetes mellitus; Z80.1 Family history of malignant neoplasm of trachea, bronchus and lung; Z23 Encounter for immunization
CPT/HCPCS: 36415; 80053; 80307; 82247; 82550; 82553; 83605; 83690; 84484; 84702; 85025; 85610; 85730; 86140; 86703; 87040; 90732; 93005; 93306; 99284; A9270-GY; J0690; J1200; J3370

== ENCOUNTER 2017-08-19 07:10 | Emergency (ER) | payer OTHER ==
--- OUTSIDE RECORDS SUMMARY | 2017-08-19 07:19 | XMS REPORT ---
:1985 External Reference #:[id number] Author Organization [facility] Address [address] [address] Phone [phone] Care Team Providers Name Role Phone Vinod Washington MD Primary Care Physician Unavailable Payers Type Date Identification Numbers Payment Provider Subscriber Medicaid Expires: Policy Number: [id number] Medicaid Elias Lunsforderman 2016 Group Name: 1 1 [address] PayID: [id number] [place] [address] Commercial Effective: 2016 Policy Number: [id number] [place] Elias Lunsforderman Group Number: [id number] [address] PayID: [id number] [place] [address] Problems Date Description Provider Status Onset: 05/05/2016 History of drug abuse Prasanna Michele NP Active Onset: 05/05/2016 Idiopathic peripheral neuropathy Prasanna Michele NP Active Onset: 05/05/2016 Depressive disorder Prasanna Michele NP Active Onset: 06/30/2016 Viral hepatitis C Vinod Washington Active Sheeba,FACP Onset: 06/30/2016 Opioid dependence in remission Janis Angel M.D.FACP Onset: 08/01/2016 Vitamin B12 deficiency (non Vinod Washington Active anemic) Sheeba,FACP Onset: 09/15/2016 Attention deficit hyperactivity Vinod Washington, Active disorder, combined type Sheeba,FACP Onset: 09/15/2016 Light cigarette smoker (1-9 Vinod Washington, Active cigs/day) Sheeba,FACP Family History Date Family Member(s) Problem(s) Comments [...] Form Strength Qnty SIG Indications Ordering Provider Mavyret 07/18 Active Tablets 100-40mg 84tab 3 tabs by Tad s mouth once D. daily Sheeba Odonnell Gabapentin 06/21 Active Tablets 600mg 120ta take one G60.3 bs tablet by Shelley Washington, mouth 2 times M.Shelley,FACP a day plus 2 qhs Lamotrigine 04/24 Active Tablets 100mg 90tab 1 by mouth s every evening Shelley Washington M.D.,FACP Triamcinolone 04/21 Active Cream 0.1% 30gm apply every Acetonide day as needed emanuel Morales M.D.,FACP lesion Colace 04/21 Active Capsules 100mg 60cap 1 by mouth s twice a day Shelley Washington M.D.,FACP Nicotine 04/07 Active Gum 2mg 100un 1 piece every its 2 hours as Ryne, [employer] needed. Vistaril 04/07 Active Capsules 25mg 60cap 1-2 by mouth F41.9 Prasanna s four times Ryne [employer] daily as needed anxiety/insomn ia Naproxen 04/07 Active Tablets 500mg 60tab Take 1 Tablet M25.50 s By Mouth Up To Shelley Washington, Twice A Day as Sheeba,FACP Needed With Food Omeprazole 12/26 Active Capsules 20mg 90cap [address] fitzgerald every day Shelley Washington M.D.,FACP Suboxone 12/26 Active Film 8-2mg 28uni 1 strip sl ts twice day Shelley Washington M.D.,[facility] Benzoyl 10/25 Active Gel 5% 90gm topical qd L70.0 Shelley Washington M.D.,FACP Mupirocin 08/22 Active Cream 2% 15gm apply two A49.02 times daily to Shelley Washington, areas of Sheeba,FACP blistering skin Cyanocobalamin 08/01 Active Solution 1000mcg/M 6ml 1 milliliters L intramuscular Shelley Washington, [id number] [facility] Multivitamin 08/01 Active Tablets 30tab 1 by mouth s every day Shelley Washington M.D.,[facility] Hydroxyzine HCL Active Tablets 25mg 1 tablets by Unknown /0000 mouth every 6-8 hours as needed for pruritis. Ketoconazole Active Shampoo 2% Wash From The Unknown / Neck Down Three Times A Week X 1 Month Fluconazole Active Tablets 150mg Take 1 Tablet Unknown /0000 By Mouth Daily For 2 Weeks Sulfamethoxazol 06/02 Hx Tablets 800-160mg by mouth twice Unknown a day x 14 DS - days 06/16 Clindamycin HCL 05/25 Hx Capsules 300mg 40cap 1 tabs by s mouth 4 times - a day 06/04 Lamotrigine 04/21 Hx Tablets 100mg 30tab 1 by mouth Dispers s every evening Shelley Washington, - Sheeba,[facility] 04/24 Lamotrigine 01/31 Hx Tablets 25mg 120ta 1 po qhs for 1 bs wk, then 2 qhs Shelley Washington, - for 1 wk, then Sheeba,[facility] 04/21 3 qhs, then qhs ongoing Nicotrol 01/31 Hx Inhaler 10mg 168un 1 cartridges its every 2 hours Shelley Washington, - as needed Sheeba,[facility] 04/07 Gabapentin 01/31 Hx Capsules 300mg 120ca Take 1 Capsule G60.3 ps By Mouth Twice Shelley Washington, - A Day Plus 2 M.D.,[facility] 06/21 AT Bedtime Sulfamethoxazol 12/01 Hx Tablets 800-160mg 10tab by mouth twice Debby Paz e/ s a day Shelley Washington, DS - M.D.,[facility] 12/06 Bupropion HCL 10/17 Hx Tablets 100mg 60tab 1 by mouth Vinod ER (SR) ER 12HR s every morning Shelley Washington, - for 10 days, M.D.,[facility] 01/31 then take tablet by mouth every morning and one at noon [facility] 10/17 Hx Gel 0.025% 45gm apply every L70.0 night at Shelley Washington, - bedtime for 3 M.D.,[facility] 10/25 wks then needed Melatonin ER 09/23 Hx Tablets 5mg 30tab 1 by mouth G47.00 ER s every night at Shelley Washington, - bedtime M.D.,[facility] 10/17 Eszopiclone 09/15 Hx Tablets 2mg 20tab 1 tab by mouth G47.00 s every night at Shelley Washington, - bedtime as M.D.,[facility] 09/23 needed Doxycycline 08/22 Hx Capsules 100mg 14cap twice a day by A49.02 Debby Paz Hyclate s mouth Shelley Washington, - M.D.,[facility] 08/29 Gabapentin 08/22 Hx Tablets 800mg 90tab take 1 tablet G60.3 s by mouth 3 Shelley Washington, - times a day M.D.,[facility] 01/31 Suboxone 08/01 Hx Film 12-3mg 10uni 1/2 strip sl ts once a day Shelley Washington, - M.D.,[facility] 12/26 Gabapentin 06/30 Hx Tablets 600mg 150ta 1 by mouth 3 G60.3 bs times a day Shelley Washington, - plus 2 qhs M.D.,[facility] 08/22 Citalopram 06/30 Hx Tablets 20mg 30tab 1 by mouth Vinod Hydrobromide /2016 s every day Uche Morales M.D.,[facility] 08/22 Suboxone 06/30 Hx Film 4-1mg 7unit once sl daily s Uche Morales M.D.,[facility] 08/01 Gabapentin 05/02 Hx Capsules 300mg 90cap 2 by mouth G60.3 Prasanna s three times a Ryne, [employer] - day 06/30 Prozac 00 Hx Capsules 20mg 1 by mouth Unknown /0000 every day - 06/30 Ortho 00 Hx Tablets 0.18/0.21 1 by mouth Unknown Tri-Cyclen Lo /0000 5/0.25 every day - mg-25 mcg 08/01 Norgestimate-Et 00 Hx Tablets 0.25-35mg 1 by mouth Unknown h Estradiol /0000 -mcg every day - 10/17 Medications Administered in Office Medication Date Status Form Strength Qnty SIG Indications Ordering Provider B-12 Injection Administered Injection Vinod Washington M.D.,[facility] B-12 Injection Administered Injection Vinod Washington M.D.,[facility] B12 Provided Administered Injection Vinod By Patient Glendy Washington M.D.,[facility] B-12 Injection Administered Injection Vinod Washington M.D.,[facility] B-12 Injection Administered Injection Vinod Washington M.D.,[facility] Vital Signs Date Vital Result Comment 08/09/2017 Height 59 inches 4'11" Weight 121.12 lb Heart Rate 60 /min BP Systolic Sitting 104 mmHg BP Diastolic Sitting 58 mmHg Respiratory Rate 14 /min Body Temperature 97.5 F BMI (Body Mass Index) 24.5 kg/m2 07/10/2017 Height 59 inches 4'11" Weight 118.00 lb Heart Rate 76 /min BP Systolic 110 mmHg BP Diastolic 60 mmHg Body Temperature 97.8 F O2 % BldC Oximetry 97 % BMI (Body Mass Index) 23.8 kg/m2 06/19/2017 Height 59 inches 4'11" Weight 115.00 lb Heart Rate 84 /min BP Systolic Sitting 102 mmHg BP Diastolic Sitting 58 mmHg Respiratory Rate 14 /min Body Temperature 98.5 F BMI (Body Mass Index) 23.2 kg/m2 04/21/2017 Weight 119.00 lb Heart Rate 83 [...] Test Date Test Result H/L Range Note Drug Abuse 20 Urine 07/26/2017 Urine Amphetamine Negative ng/mL 1 Urine Barbiturates Negative ng/mL 2 Urine Benzodiazepines Negative ng/mL 3 Urine Cocaine Negative ng/mL 4 Urine Phencyclidine Negative ng/mL Cutoff: 25 Urine Tetrahydrocannabinol Presumptive Posi <SEE NOTE> Cutoff: 50 5 ng/mL Creatinine, Urine 45.6 mg/dL Specific [place] 1.009 pH 7.5 Oxidants Negative 6 Adulterants Comment Normal Codeine, Ur Not Detected ng/mL Cutoff: 25 7 Uhbnkmg-4-ttwn-glucuronide, Ur Not Detected ng/mL 8 Morphine, Ur Not Detected ng/mL Cutoff: 25 9 Sqjiyhsq-2-itmq-glucuronide, U Not Detected ng/mL 10 6-monoacetylmorphine, Ur Not Detected ng/mL Cutoff: 25 11 Hydrocodone, Ur Not Detected ng/mL Cutoff: 25 12 Norhydrocodone, Ur Not Detected ng/mL Cutoff: 25 13 Dihydrocodeine, Ur Not Detected ng/mL Cutoff: 25 14 Hydromorphone, Ur Not Detected ng/mL Cutoff: 25 15 Jgetyauhbukgk6njcahdhicoyxtjh Not Detected ng/mL 16 Oxycodone, Ur Not Detected ng/mL Cutoff: 25 17 Noroxycodone, Ur Not Detected ng/mL Cutoff: 25 18 Oxymorphone, Ur Not Detected ng/mL Cutoff: 25 19 Qqyxtnpduxu-5-ctqu-glucuronide Not Detected ng/mL 20 Noroxymorphone, Ur Not Detected ng/mL Cutoff: 25 21 Fentanyl, Ur Not Detected ng/mL Cutoff: 2 22 Norfentanyl, Ur Not Detected ng/mL Cutoff: 2 23 Meperidine, Ur Not Detected ng/mL Cutoff: 25 24 Normeperidine, Ur Not Detected ng/mL Cutoff: 25 25 Naloxone, Ur Not Detected ng/mL Cutoff: 25 26 Hgoqokpk-6-myzn-glucuronide, U Present ng/mL 27 Methadone, Ur Not Detected ng/mL Cutoff: 25 28 Eddp, Ur Not Detected ng/mL Cutoff: 25 29 Propoxyphene, Ur Not Detected ng/mL Cutoff: 25 30 Norpropoxyphene, Ur Not Detected ng/mL Cutoff: 25 31 Tramadol, Ur Not Detected ng/mL Cutoff: 25 32 O-desmethyltramadol, Ur Not Detected ng/mL Cutoff: 25 33 Tapentadol, Ur Not Detected ng/mL Cutoff: 25 34 N-desmethyltapentadol, Ur Not Detected ng/mL Cutoff: 50 35 Dsgkyhstyh-kqah-tpuqhcwcejc, U Not Detected ng/mL 36 Buprenorphine, Ur Not Detected ng/mL Cutoff: 5 37 Norbuprenorphine, Ur Present ng/mL Cutoff: 5 38 Norbuprenorphine glucuronide Present ng/mL Cutoff: 20 39 Opioid Interpretation See Comment 40 THC Confirmation Urine 07/26/2017 Urine Carboxy THC Confirm 275 ng/mL 41 Urine THC Interpretation Positive. 42 Laboratory test finding 06/19/2017 Hepatitis C Rna Quant [id number] IU/mL Undetected 43 Hepatitis C Genotype 1a Undetected 44 Liver Fibrosis Panel Fibrosure 06/19/2017 Fibrosis Score 0.06 Fibrosis Stage F0 Fibrosis Interpretation See Comment 45 Necroinflammat Activity Score 0.16 Necroinflammat Activity Grade A0 Necroinflammat Interpretation See Comment 46 Alpha 2 Macroglobulins, Qn 194 mg/dL 106-279 Haptoglobin 162 mg/dL 43-212 Apolipoprotein A-1 206 mg/dL 101-198 Bilirubin, Total 0.4 mg/dL 0.2-1.2 GGT 62 U/L 3-50 Alt (SGPT) 40 U/L 6-29 Reference Id [id number] Footnote See Comment 47 Laboratory test finding 06/19/2017 Hepatitis B Surface Ag Nonreactive Nonreactive Hepatitis B Rc AB 06/19/2017 Hepatitis B Surface AB Immune Immune Titer Hep B Surf AB Level > 1000.00 mIU/mL >12 Laboratory test finding 05/26/2017 HCG 0.98 mIU/mL 48 Blood Culture SEE RESULT BELOW 49 CBC Auto Diff 05/26/2017 White Blood Count 15.0 10^3/uL High 3.5-10.8 Red Blood Count 4.01 10^6/uL 4.0-5.4 Hemoglobin 13.0 g/dL 12.0-16.0 Hematocrit 38 % 35-47 Mean Corpuscular Volume 95 fL 80-97 Mean Corpuscular Hemoglobin 32 pg High 27-31 Mean Corpuscular HGB Conc 34 g/dL 31-36 Red Cell Distribution Width 13 % 10.5-15 Platelet Count 287 10^3/uL 150-450 Mean Platelet Volume 9 um3 7.4-10.4 Abs Neutrophils 9.9 10^3/uL High 1.5-7.7 Abs Lymphocytes 2.9 10^3/uL 1.0-4.8 Abs Monocytes 1.4 10^3/uL High 0-0.8 Abs Eosinophils 0.8 10^3/uL High 0-0.6 Abs Basophils 0 10^3/uL 0-0.2 Abs Nucleated RBC 0 10^3/uL Granulocyte % 66.1 % 38-83 Lymphocyte % 19.1 % Low 25-47 Monocyte % 9.5 % High 0-7 Eosinophil % 5.0 % 0-6 Basophil % 0.3 % 0-2 Nucleated Red Blood Cells % 0 Laboratory test finding 05/26/2017 C Reactive Protein 89.80 mg/L High &lt ; 5.00 50 Troponin-I (TnI) 0.01 ng/mL <0.04 Comp Metabolic Panel 05/26/2017 Sodium 133 mmol/L 133-145 Potassium 4.9 mmol/L 3.5-5.0 Chloride 102 mmol/L 101-111 Co2 Carbon Dioxide 25 mmol/L 22-32 Anion Gap 6 mmol/L 2-11 Glucose 90 mg/dL 70-100 Blood Urea Nitrogen 24 mg/dL 6-24 Creatinine 1.54 mg/dL High 0.51-0.95 BUN/Creatinine Ratio 15.6 8-20 Calcium 10.4 mg/dL High 8.6-10.3 Total Protein 7.0 g/dL 6.4-8.9 Albumin 3.9 g/dL 3.2-5.2 Globulin 3.1 g/dL 2-4 Albumin/Globulin Ratio 1.3 1-3 Total Bilirubin 0.40 mg/dL 0.2-1.0 Alkaline Phosphatase 67 U/L 34-104 Alt 17 U/L 7-52 Ast 21 U/L 13-39 Egfr Non- 39.0 >60 Egfr 50.2 >60 51 Laboratory test finding 05/26/2017 Partial Thrombo Time 30.1 seconds 26.0 -36.3 PTT Lactic Acid 1.0 mmol/L 0.5-2.0 52 Inr/Protime 05/26/2017 Inr 0.86 0.77-1.02 Urine Culture And 05/26/2017 Urine Culture SEE RESULT BELOW 53 Sensitivities Urinalysis Profile 05/26/2017 Urine Color Yellow Urine Appearance Cloudy Urine Specific [place] 1.011 1.010-1.030 Urine pH 7.0 5-9 Urine Urobilinogen Negative Negative Urine Ketones Negative Negative Urine Protein Negative Negative Urine Leukocytes Negative Negative Urine Blood 1+ Negative * * Negative 54 Urine Nitrite Positive Negative Urine Bilirubin Negative Negative Urine Glucose Negative Negative Urine White Blood Cell 1+(6-10/hpf) Absent Urine Red Blood Cell 3+(>10/hpf) Absent Urine Bacteria 3+ Absent Urine Squamous Epithelial Cell Present Absent CBC Auto Diff 05/25/2017 White Blood Count 16.3 10^3/uL High 3.5-10.8 55 Red Blood Count 3.82 10^6/uL Low 4.0-5.4 55 Hemoglobin 12.3 g/dL 12.0-16.0 55 Hematocrit 37 % 35-47 55 Mean Corpuscular Volume 96 fL 80-97 55 Mean Corpuscular Hemoglobin 32 pg High 27-31 55 Mean Corpuscular HGB Conc 34 g/dL 31-36 55 Red Cell Distribution Width 13 % 10.5-15 55 Platelet Count 268 10^3/uL 150-450 55 Mean Platelet Volume 8 um3 7.4-10.4 55 Comp Metabolic Panel 05/25/2017 Sodium 135 mmol/L 133-145 55 Potassium 3.3 mmol/L Low 3.5-5.0 55 Chloride 101 mmol/L 101-111 55 Co2 Carbon Dioxide 25 mmol/L 22-32 55 Anion Gap 9 mmol/L 2-11 55 Glucose 101 mg/dL High 70-100 55 Blood Urea Nitrogen 23 mg/dL 6-24 55 Creatinine 1.59 mg/dL High 0.51-0.95 55 BUN/Creatinine Ratio 14.5 8-20 55 Calcium 9.6 mg/dL 8.6-10.3 55 Total Protein 6.3 g/dL Low 6.4-8.9 55 Albumin 3.7 g/dL 3.2-5.2 55 Globulin 2.6 g/dL 2-4 55 Albumin/Globulin Ratio 1.4 1-3 55 Total Bilirubin 0.60 mg/dL 0.2-1.0 55 Alkaline Phosphatase 70 U/L 34-104 55 Alt 17 U/L 7-52 55 Ast 19 U/L 13-39 55 Egfr Non- 37.6 >60 55 Egfr 48.4 >60 55, 56 Laboratory test finding 05/25/2017 C Reactive Protein 8.58 mg/L High < 5.00 55, 57 Lactic Acid 1.0 mmol/L 0.5-2.0 55, 58 Manual Differential 05/25/2017 Immature Granulocytes 1 % 0-9 55 Neutrophil % 68 % 38-83 55 Band % 1 % 0-8 55 Lymphocytes % 15 % Low 25-47 55 Monocytes % 13 % High 0-7 55 Eosinophils % 3 % 0-6 55 Basophil % 0 % 0-2 55 Abs Neutrophils 11.1 10^3/uL High 1.5-7.7 55 Abs Lymphocytes 2.4 10^3/uL 1.0-4.8 55 Abs Monocytes 2.1 10^3/uL High 0-0.8 55 Abs Eosinophils 0.5 10^3/uL 0-0.6 55 Abs Basophils 0 10^3/uL 0-0.2 55 RBC Morphology Normal Normal 55 Laboratory test finding 05/25/2017 Pathologist Review (SEE NOTE) 55, 59 Blood Culture SEE RESULT BELOW 55, 60 Wound Culture/Sensi 05/25/2017 Wound/Misc SEE RESULT 61 Culture-Gram Stain BELOW Laboratory test 05/25/2017 MRSA/S. aureus Ssti SEE RESULT 62 finding PCR BELOW Laboratory test 05/25/2017 Poc , Urine Negative Negative 63 finding Wound Culture/Sensi 05/24/2017 Wound/Misc SEE RESULT 64, 65 Culture-Gram Stain BELOW Laboratory test 05/24/2017 MRSA/S. aureus Ssti SEE RESULT 64, 66 finding PCR BELOW THC Confirmation 04/21/2017 Urine Carboxy THC >500.0 ng/mL 67 Urine Confirm Urine THC Interpretation Positive. 68 Urine Cocaine 04/21/2017 Urine Cocaine Negative ng/mL Cutoff: 50 Confirmation Confirm (GC/MS) Ur Benzoylecgonine Confirm 351 ng/mL Cutoff: 50 Urine Cocaine Interpretation Positive. 69 Drug Abuse 20 Urine 04/21/2017 Urine Amphetamine Negative ng/mL 70 Urine Barbiturates Negative ng/mL 71 Urine Benzodiazepines Negative ng/mL 72 Urine Cocaine Presumptive Posi <SEE NOTE> 73 ng/mL Urine Phencyclidine Negative ng/mL Cutoff: 25 Urine Tetrahydrocannabinol Presumptive Posi <SEE NOTE> Cutoff: 50 74 ng/mL Creatinine, Urine 96.7 mg/dL Specific [place] 1.016 pH 6.0 Oxidants Negative 75 Adulterants Comment Normal Codeine, Ur Not Detected ng/mL Cutoff: 25 76 Ufxfaov-8-palk-glucuronide, Ur Not Detected ng/mL 77 Morphine, Ur Not Detected ng/mL Cutoff: 25 78 Adjtmsag-7-qodx-glucuronide, U Not Detected ng/mL 79 6-monoacetylmorphine, Ur Not Detected ng/mL Cutoff: 25 80 Hydrocodone, Ur Not Detected ng/mL Cutoff: 25 81 Norhydrocodone, Ur Not Detected ng/mL Cutoff: 25 82 Dihydrocodeine, Ur Not Detected ng/mL Cutoff: 25 83 Hydromorphone, Ur Not Detected ng/mL Cutoff: 25 84 Lhtzcojmveato1naoshkevjmvtmib Not Detected ng/mL 85 Oxycodone, Ur Not Detected ng/mL Cutoff: 25 86 Noroxycodone, Ur Not Detected ng/mL Cutoff: 25 87 Oxymorphone, Ur Not Detected ng/mL Cutoff: 25 88 Kovrzyvifri-6-cwnh-glucuronide Not Detected ng/mL 89 Noroxymorphone, Ur Not Detected ng/mL Cutoff: 25 90 Fentanyl, Ur Not Detected ng/mL Cutoff: 2 91 Norfentanyl, Ur Not Detected ng/mL Cutoff: 2 92 Meperidine, Ur Not Detected ng/mL Cutoff: 25 93 Normeperidine, Ur Not Detected ng/mL Cutoff: 25 94 Naloxone, Ur Not Detected ng/mL Cutoff: 25 95 Gysgepnv-7-gcpe-glucuronide, U Present ng/mL 96 Methadone, Ur Not Detected ng/mL Cutoff: 25 97 Eddp, Ur Not Detected ng/mL Cutoff: 25 98 Propoxyphene, Ur Not Detected ng/mL Cutoff: 25 99 Norpropoxyphene, Ur Not Detected ng/mL Cutoff: 25 100 Tramadol, Ur Not Detected ng/mL Cutoff: 25 101 O-desmethyltramadol, Ur Not Detected ng/mL Cutoff: 25 102 Tapentadol, Ur Not Detected ng/mL Cutoff: 25 103 N-desmethyltapentadol, Ur Not Detected ng/mL Cutoff: 50 104 Hhtrihbata-fvpe-bkhumnstlek, U Not Detected ng/mL 105 Buprenorphine, Ur Present ng/mL Cutoff: 5 106 Norbuprenorphine, Ur Present ng/mL Cutoff: 5 107 Norbuprenorphine glucuronide Present ng/mL Cutoff: 20 108 Opioid Interpretation See Comment 109 Comp Metabolic Panel 04/14/2017 Sodium 139 mmol/L [...] Egfr Non- 77.5 >60 Egfr 99.7 >60 110 CBC Auto Diff 04/14/2017 White Blood Count [...] mcIU/mL 0.34-5.60 Lyme Disease Serology Negative Negative 111 Vitamin B12 207 pg/mL 180-914 112 Drug Abuse 20 Urine 01/31/2017 Urine Amphetamine Negative ng/mL 113 Urine Barbiturates Negative ng/mL 114 Urine Benzodiazepines Negative ng/mL 115 Urine Cocaine Negative ng/mL 116 Urine Phencyclidine Negative ng/mL Cutoff: 25 Urine Tetrahydrocannabinol Presumptive Posi <SEE NOTE> Cutoff: 50 117 ng/mL Creatinine, Urine 116.5 mg/dL Specific [place] 1.011 pH 8.0 Oxidants Negative 118 Adulterants Comment Normal Codeine, Ur Not Detected ng/mL Cutoff: 25 119 Lghmajj-9-jjyf-glucuronide, Ur Not Detected ng/mL 120 Morphine, Ur Not Detected ng/mL Cutoff: 25 121 Qnkcgqrz-7-agsb-glucuronide, U Not Detected ng/mL 122 6-monoacetylmorphine, Ur Not Detected ng/mL Cutoff: 25 123 Hydrocodone, Ur Not Detected ng/mL Cutoff: 25 124 Norhydrocodone, Ur Not Detected ng/mL Cutoff: 25 125 Dihydrocodeine, Ur Not Detected ng/mL Cutoff: 25 126 Hydromorphone, Ur Not Detected ng/mL Cutoff: 25 127 Wuxhfincwihtq6jfnyulaunzyxubp Not Detected ng/mL 128 Oxycodone, Ur Not Detected ng/mL Cutoff: 25 129 Noroxycodone, Ur Not Detected ng/mL Cutoff: 25 130 Oxymorphone, Ur Not Detected ng/mL Cutoff: 25 131 Zgkncxybztu-7-upai-glucuronide Not Detected ng/mL 132 Noroxymorphone, Ur Not Detected ng/mL Cutoff: 25 133 Fentanyl, Ur Not Detected ng/mL Cutoff: 2 134 Norfentanyl, Ur Not Detected ng/mL Cutoff: 2 135 Meperidine, Ur Not Detected ng/mL Cutoff: 25 136 Normeperidine, Ur Not Detected ng/mL Cutoff: 25 137 Naloxone, Ur Not Detected ng/mL Cutoff: 25 138 Mwoqpetm-9-tsrl-glucuronide, U Present ng/mL 139 Methadone, Ur Not Detected ng/mL Cutoff: 25 140 Eddp, Ur Not Detected ng/mL Cutoff: 25 141 Propoxyphene, Ur Not Detected ng/mL Cutoff: 25 142 Norpropoxyphene, Ur Not Detected ng/mL Cutoff: 25 143 Tramadol, Ur Not Detected ng/mL Cutoff: 25 144 O-desmethyltramadol, Ur Not Detected ng/mL Cutoff: 25 145 Tapentadol, Ur Not Detected ng/mL Cutoff: 25 146 N-desmethyltapentadol, Ur Not Detected ng/mL Cutoff: 50 147 Ffcgekfddi-lgfg-ejqlukibmqs, U Not Detected ng/mL 148 Buprenorphine, Ur Not Detected ng/mL Cutoff: 5 149 Norbuprenorphine, Ur Present ng/mL Cutoff: 5 150 Norbuprenorphine glucuronide Present ng/mL Cutoff: 20 151 Opioid Interpretation See Comment 152 THC Confirmation Urine 01/31/2017 Urine Carboxy THC Confirm >500.0 ng/mL 153 Urine THC Interpretation Positive. 154 Laboratory test 12/26/2016 Vitamin B12 > 1450 pg/mL High 180-914 155 finding CBC Auto Diff 12/26/2016 White Blood Count [...] Egfr Non- 95.4 >60 Egfr 122.7 >60 156 THC Confirmation Urine 11/30/2016 Urine Carboxy THC Confirm >500.0 ng/mL 157 Urine THC Interpretation Positive. 158 Drug Abuse 20 Urine 11/30/2016 Urine Amphetamine Negative ng/mL 159 Urine Barbiturates Negative ng/mL 160 Urine Benzodiazepines Negative ng/mL 161 Urine Cocaine Negative ng/mL 162 Urine Phencyclidine Negative ng/mL Cutoff: 25 Urine Tetrahydrocannabinol Presumptive Posi <SEE NOTE> Cutoff: 50 163 ng/mL Creatinine, Urine 131.6 mg/dL Specific [place] 1.008 pH 7.8 Oxidants Negative 164 Adulterants Comment Normal Codeine, Ur Not Detected ng/mL Cutoff: 25 165 Ztslqgp-3-mord-glucuronide, Ur Not Detected ng/mL 166 Morphine, Ur Not Detected ng/mL Cutoff: 25 167 Qgvtmhvg-0-zijr-glucuronide, U Not Detected ng/mL 168 6-monoacetylmorphine, Ur Not Detected ng/mL Cutoff: 25 169 Hydrocodone, Ur Not Detected ng/mL Cutoff: 25 170 Norhydrocodone, Ur Not Detected ng/mL Cutoff: 25 171 Dihydrocodeine, Ur Not Detected ng/mL Cutoff: 25 172 Hydromorphone, Ur Not Detected ng/mL Cutoff: 25 173 Hltdjufiijqkg8xxzlldiirznrbfj Not Detected ng/mL 174 Oxycodone, Ur Not Detected ng/mL Cutoff: 25 175 Noroxycodone, Ur Not Detected ng/mL Cutoff: 25 176 Oxymorphone, Ur Not Detected ng/mL Cutoff: 25 177 Tqaijsehmjz-7-mjyo-glucuronide Not Detected ng/mL 178 Noroxymorphone, Ur Not Detected ng/mL Cutoff: 25 179 Fentanyl, Ur Not Detected ng/mL Cutoff: 2 180 Norfentanyl, Ur Not Detected ng/mL Cutoff: 2 181 Meperidine, Ur Not Detected ng/mL Cutoff: 25 182 Normeperidine, Ur Not Detected ng/mL Cutoff: 25 183 Naloxone, Ur Not Detected ng/mL Cutoff: 25 184 Ddttiymq-3-fqch-glucuronide, U Present ng/mL 185 Methadone, Ur Not Detected ng/mL Cutoff: 25 186 Eddp, Ur Not Detected ng/mL Cutoff: 25 187 Propoxyphene, Ur Not Detected ng/mL Cutoff: 25 188 Norpropoxyphene, Ur Not Detected ng/mL Cutoff: 25 189 Tramadol, Ur Not Detected ng/mL Cutoff: 25 190 O-desmethyltramadol, Ur Not Detected ng/mL Cutoff: 25 191 Tapentadol, Ur Not Detected ng/mL Cutoff: 25 192 N-desmethyltapentadol, Ur Not Detected ng/mL Cutoff: 50 193 Kkscjrupax-jclo-sdtszycsfxm, U Not Detected ng/mL 194 Buprenorphine, Ur Not Detected ng/mL Cutoff: 5 195 Norbuprenorphine, Ur Present ng/mL Cutoff: 5 196 Norbuprenorphine glucuronide Present ng/mL Cutoff: 20 197 Opioid Interpretation See Comment 198 Urine Culture And Sensitivities 11/30/2016 Urine Culture SEE RESULT BELOW 199 Urinalysis Profile 11/30/2016 Urine Color Yellow Urine Appearance Cloudy Urine Specific [place] 1.014 1.010-1.030 Urine pH 7.0 5-9 Urine Urobilinogen Negative Negative Urine Ketones Negative Negative Urine Protein Negative Negative Urine Leukocytes Trace Negative Urine Blood Negative Negative Urine Nitrite Negative Negative Urine Bilirubin Negative Negative Urine Glucose Negative Negative Urine White Blood Cell Trace(0-5/hpf) Absent Urine Red Blood Cell Absent Absent Urine Bacteria 1+ Absent Urine Squamous Epithelial Cell Present Absent Laboratory test finding 09/15/2016 Test Urine neg Drug Abuse 20 Urine 09/15/2016 Urine Amphetamine Negative ng/mL 200 Urine Barbiturates Negative ng/mL 201 Urine Benzodiazepines Negative ng/mL 202 Urine Cocaine Negative ng/mL 203 Urine Phencyclidine Negative ng/mL Cutoff: 25 Urine Tetrahydrocannabinol Presumptive Posi <SEE NOTE> Cutoff: 50 204 ng/mL Creatinine, Urine 90.9 mg/dL Specific [place] 1.013 pH 7.5 Oxidants Negative 205 Adulterants Comment Normal Codeine, Ur Not Detected ng/mL Cutoff: 25 206 Vqtlnts-6-dpcs-glucuronide, Ur Not Detected ng/mL 207 Morphine, Ur Not Detected ng/mL Cutoff: 25 208 Eeerprkf-5-xzee-glucuronide, U Not Detected ng/mL 209 6-monoacetylmorphine, Ur Not Detected ng/mL Cutoff: 25 210 Hydrocodone, Ur Not Detected ng/mL Cutoff: 25 211 Norhydrocodone, Ur Not Detected ng/mL Cutoff: 25 212 Dihydrocodeine, Ur Not Detected ng/mL Cutoff: 25 213 Hydromorphone, Ur Not Detected ng/mL Cutoff: 25 214 Hnbhbclepujdw5czthfnllescqwce Not Detected ng/mL 215 Oxycodone, Ur Not Detected ng/mL Cutoff: 25 216 Noroxycodone, Ur Not Detected ng/mL Cutoff: 25 217 Oxymorphone, Ur Not Detected ng/mL Cutoff: 25 218 Zzlwjcdhodm-0-dbcj-glucuronide Not Detected ng/mL 219 Noroxymorphone, Ur Not Detected ng/mL Cutoff: 25 220 Fentanyl, Ur Not Detected ng/mL Cutoff: 2 221 Norfentanyl, Ur Not Detected ng/mL Cutoff: 2 222 Meperidine, Ur Not Detected ng/mL Cutoff: 25 223 Normeperidine, Ur Not Detected ng/mL Cutoff: 25 224 Naloxone, Ur Not Detected ng/mL Cutoff: 25 225 Dphimizc-0-nhmj-glucuronide, U Present ng/mL 226 Methadone, Ur Not Detected ng/mL Cutoff: 25 227 Eddp, Ur Not Detected ng/mL Cutoff: 25 228 Propoxyphene, Ur Not Detected ng/mL Cutoff: 25 229 Norpropoxyphene, Ur Not Detected ng/mL Cutoff: 25 230 Tramadol, Ur Not Detected ng/mL Cutoff: 25 231 O-desmethyltramadol, Ur Not Detected ng/mL Cutoff: 25 232 Tapentadol, Ur Not Detected ng/mL Cutoff: 25 233 N-desmethyltapentadol, Ur Not Detected ng/mL Cutoff: 50 234 Qghovviubt-sllx-yufadknaoru, U Not Detected ng/mL 235 Buprenorphine, Ur Not Detected ng/mL Cutoff: 5 236 Norbuprenorphine, Ur Present ng/mL Cutoff: 5 237 Norbuprenorphine glucuronide Present ng/mL Cutoff: 20 238 Opioid Interpretation See Comment 239 THC Confirmation Urine 09/15/2016 Urine Carboxy THC Confirm >500.0 ng/mL 240 Urine THC Interpretation Positive. 241 Drug Abuse 20 Urine 08/01/2016 Urine Amphetamine Negative ng/mL 242, 243 Urine Barbiturates Negative ng/mL 242, 244 Urine Benzodiazepines Negative ng/mL 242, 245 Urine Cocaine Negative ng/mL 242, 246 Urine Phencyclidine Negative ng/mL Cutoff: 25 242 Urine Tetrahydrocannabinol Presumptive Posi <SEE Cutoff: 50 242, 247 NOTE> ng/mL Creatinine 57.7 mg/dL 242 Specific [place] 1.007 242 pH 7.6 242 Oxidants Negative 242, 248 Adulterants Comment Normal 242 Codeine, Ur Not Detected ng/mL Cutoff: 25 242, 249 Bylryzu-6-myik-glucuronide, Ur Not Detected ng/mL 242, 250 Morphine, Ur Not Detected ng/mL Cutoff: 25 242, 251 Jnirytmv-5-xnbm-glucuronide, U Not Detected ng/mL 242, 252 6-monoacetylmorphine, Ur Not Detected ng/mL Cutoff: 25 242, 253 Hydrocodone, Ur Not Detected ng/mL Cutoff: 25 242, 254 Norhydrocodone, Ur Not Detected ng/mL Cutoff: 25 242, 255 Dihydrocodeine, Ur Not Detected ng/mL Cutoff: 25 242, 256 Hydromorphone, Ur Not Detected ng/mL Cutoff: 25 242, 257 Gjqpiueqwkhfb5gvxxfomcbrtjzws Not Detected ng/mL 242, 258 Oxycodone, Ur Not Detected ng/mL Cutoff: 25 242, 259 Noroxycodone, Ur Not Detected ng/mL Cutoff: 25 242, 260 Oxymorphone, Ur Not Detected ng/mL Cutoff: 25 242, 261 Qopiiwncmwt-5-nnyu-glucuronide Not Detected ng/mL 242, 262 Noroxymorphone, Ur Not Detected ng/mL Cutoff: 25 242, 263 Fentanyl, Ur Not Detected ng/mL Cutoff: 2 242, 264 Norfentanyl, Ur Not Detected ng/mL Cutoff: 2 242, 265 Meperidine, Ur Not Detected ng/mL Cutoff: 25 242, 266 Normeperidine, Ur Not Detected ng/mL Cutoff: 25 242, 267 Naloxone, Ur Not Detected ng/mL Cutoff: 25 242, 268 Eraqqllx-8-yzlx-glucuronide, U Present ng/mL 242, 269 Methadone, Ur Not Detected ng/mL Cutoff: 25 242, 270 Eddp, Ur Not Detected ng/mL Cutoff: 25 242, 271 Propoxyphene, Ur Not Detected ng/mL Cutoff: 25 242, 272 Norpropoxyphene, Ur Not Detected ng/mL Cutoff: 25 242, 273 Tramadol, Ur Not Detected ng/mL Cutoff: 25 242, 274 O-desmethyltramadol, Ur Not Detected ng/mL Cutoff: 25 242, 275 Tapentadol, Ur Not Detected ng/mL Cutoff: 25 242, 276 N-desmethyltapentadol, Ur Not Detected ng/mL Cutoff: 50 242, 277 Zxgldjavju-iffc-twdedhefpji, U Not Detected ng/mL 242, 278 Buprenorphine, Ur Not Detected ng/mL Cutoff: 5 242, 279 Norbuprenorphine, Ur Present ng/mL Cutoff: 5 242, 280 Norbuprenorphine glucuronide Present ng/mL Cutoff: 20 242, 281 Opioid Interpretation See Comment 242, 282 THC Confirmation Urine 08/01/2016 Urine Carboxy THC Confirm 350 ng/mL 242, 283 Urine THC Interpretation Positive. 242, 284 Laboratory test finding 07/18/2016 Vitamin B12 128 pg/mL Low 180-914 285 Free T4 (Free Thyroxine) 0.71 ng/dL 0.61-1.12 Hemoglobin A1c (Glyco HGB) 5.9 % Less than 6.0 286 Liver Function Panel 07/18/2016 Total Protein 7.0 g/dL 6.4-8.9 Albumin 3.7 g/dL 3.2-5.2 Globulin 3.3 g/dL 2-4 Albumin/Globulin Ratio 1.1 1-3 Total Bilirubin 0.40 mg/dL 0.2-1.0 Direct Bilirubin 0.10 mg/dL 0.03-0.18 Indirect Bilirubin 0.3 mg/dL 0.3-1.0 Alkaline Phosphatase 106 U/L High 34-104 Alt 20 U/L 7-52 Ast 27 U/L 13-39 Laboratory test 07/18/2016 Hepatitis C Rna Quant [id number] IU/mL Undetected 287 finding Hepatitis C Genotype 1a Undetected 288 Drug Abuse 20 Urine 06/30/2016 Urine Amphetamine Presumptive Posi <SEE 289 NOTE> ng/mL Urine Barbiturates Negative ng/mL 290 Urine Benzodiazepines Negative ng/mL 291 Urine Cocaine Negative ng/mL 292 Urine Phencyclidine Negative ng/mL Cutoff: 25 Urine Tetrahydrocannabinol Presumptive Posi <SEE NOTE> Cutoff: 50 293 ng/mL Creatinine 303.6 mg/dL Specific [place] 1.016 pH 7.6 Oxidants Negative 294 Adulterants Comment Normal Codeine, Ur Not Detected ng/mL Cutoff: 25 295 Xvbkwns-0-jqrf-glucuronide, Ur Not Detected ng/mL 296 Morphine, Ur Not Detected ng/mL Cutoff: 25 297 Uzizgpzk-5-urzz-glucuronide, U Not Detected ng/mL 298 6-monoacetylmorphine, Ur Not Detected ng/mL Cutoff: 25 299 Hydrocodone, Ur Not Detected ng/mL Cutoff: 25 300 Norhydrocodone, Ur Not Detected ng/mL Cutoff: 25 301 Dihydrocodeine, Ur Not Detected ng/mL Cutoff: 25 302 Hydromorphone, Ur Not Detected ng/mL Cutoff: 25 303 Jzuoojsylvowv3ufatisikgzubyvg Not Detected ng/mL 304 Oxycodone, Ur Not Detected ng/mL Cutoff: 25 305 Noroxycodone, Ur Not Detected ng/mL Cutoff: 25 306 Oxymorphone, Ur Not Detected ng/mL Cutoff: 25 307 Lwbultudatr-2-eiwd-glucuronide Not Detected ng/mL 308 Noroxymorphone, Ur Not Detected ng/mL Cutoff: 25 309 Fentanyl, Ur Not Detected ng/mL Cutoff: 2 310 Norfentanyl, Ur Not Detected ng/mL Cutoff: 2 311 Meperidine, Ur Not Detected ng/mL Cutoff: 25 312 Normeperidine, Ur Not Detected ng/mL Cutoff: 25 313 Naloxone, Ur Not Detected ng/mL Cutoff: 25 314 Jvgqdheo-3-vyal-glucuronide, U Not Detected ng/mL 315 Methadone, Ur Not Detected ng/mL Cutoff: 25 316 Eddp, Ur Not Detected ng/mL Cutoff: 25 317 Propoxyphene, Ur Not Detected ng/mL Cutoff: 25 318 Norpropoxyphene, Ur Not Detected ng/mL Cutoff: 25 319 Tramadol, Ur Not Detected ng/mL Cutoff: 25 320 O-desmethyltramadol, Ur Not Detected ng/mL Cutoff: 25 321 Tapentadol, Ur Not Detected ng/mL Cutoff: 25 322 N-desmethyltapentadol, Ur Not Detected ng/mL Cutoff: 50 323 Xwojlgaxef-qlgk-pqrhhmkibel, U Not Detected ng/mL 324 Buprenorphine, Ur Not Detected ng/mL Cutoff: 5 325 Norbuprenorphine, Ur Present ng/mL Cutoff: 5 326 Norbuprenorphine glucuronide Present ng/mL Cutoff: 20 327 Opioid Interpretation See Comment 328 Urine Amphetamine 06/30/2016 Urine Amphetamine by Negative ng/mL Cutoff: 25 Confirm GC/MS Urine Methamphetamine by GC/MS Negative ng/mL Cutoff: 25 Phentermine-by GC/MS Negative ng/mL Cutoff: 25 Pseudoephedrine/Ephedr GC/MS Negative ng/mL Cutoff: 25 Mda(Ecstacy metabolite) GC/MS Negative ng/mL Cutoff: 25 Mdma(Ecstacy)-by GC/MS Negative ng/mL Cutoff: 25 Urine Amphetamines Interp Negative. 329 THC Confirmation Urine 06/30/2016 Urine Carboxy THC Confirm >500.0 ng/mL 330 Urine THC Interpretation Positive. 331 1 REFERENCE VALUE Cutoff: 500 2 REFERENCE VALUE Cutoff: 200 3 REFERENCE VALUE Cutoff: 100 4 REFERENCE VALUE Cutoff: 150 5 Presumptive Positive Drug confirmation to follow. Presumptive Positive means that the screening method is positive, but the test needs to be run by a confirmatory method before being finalized. ADDITIONAL INFORMATION This report is intended for use in clinical monitoring or management of patients. It is not intended for use in employment-related testing. 6 REFERENCE VALUE Cutoff: 200 mg/L 7 Tylenol 3 8 Metabolite of codeine REFERENCE VALUE Cutoff: 100 9 Aleida Aden, Contin; Also a minor metabolite (10%) of codeine and can be seen in low concentrations (<2,000 ng/mL) with poppy seed ingestion. 10 Metabolite of morphine REFERENCE VALUE Cutoff: 100 11 Metabolite of heroin 12 Lortab, [place], Vicodin; Also a very minor metabolite of codeine and impurity (<1%) of oxycodone. 13 Metabolite of hydrocodone 14 Metabolite of hydrocodone 15 Dilaudid, Exalgo; Also a metabolite of hydrocodone and a minor (<5%) metabolite of morphine. 16 Metabolite of hydromorphone REFERENCE VALUE Cutoff: 100 17 Endocet, Percocet, Oxycontin 18 Metabolite of oxycodone 19 Numorphan, Opana; Also a metabolite of oxycodone. 20 Metabolite of oxymorphone REFERENCE VALUE Cutoff: 100 21 Metabolite of oxymorphone 22 Actiq, Duragesic, Fentora 23 Metabolite of fentanyl 24 Demerol 25 Metabolite of meperidine 26 Narcan 27 Metabolite of naloxone REFERENCE VALUE Cutoff: 100 28 Dolophine 29 Metabolite of methadone 30 Darvon, Darvocet 31 Metabolite of propoxyphene 32 Tradol, Ultram, Ultracet 33 Metabolite of tramadol 34 Nucynta 35 Metabolite of tapentadol 36 Metabolite of tapentadol REFERENCE VALUE Cutoff: 100 37 Buprenex, Suboxone 38 Metabolite of buprenorphine 39 Metabolite of buprenorphine 40 Test detected the presence of buprenorphine metabolites (norbuprenorphine and norbuprenorphine glucuronide) along with naloxone metabolite pvscorkt-6-zjrp-glucuronide. Suspect use of buprenorphine with naloxone (e.g. Suboxone) within the past three days. ADDITIONAL INFORMATION This test was developed and its performance characteristics determined by [facility] in a manner consistent with CLIA requirements. This test has not been cleared or approved by the U.S. Food and Drug Administration. Test Performed by: [facility] Handseeing Information - [facility] [address] [place] [address] 41 REFERENCE VALUE Cutoff: 3.0 42 ADDITIONAL INFORMATION This report is intended for use in clinical monitoring and management of patients. It is not intended for use in employment-related testing. This test was developed and its performance characteristics determined by [facility] in a manner consistent with CLIA requirements. This test has not been cleared or approved by the U.S. Food and Drug Administration. Test Performed by: [address] [address] 43 Result in log IU/mL is 6.04. ADDITIONAL INFORMATION The quantification range of this assay is 15 to 100,000,000 IU/mL (1.18 log to 8.00 log IU/mL). Testing was performed using the lora HCV test ([employer] with the lora Xetal0 System. Test Performed by: [address] [address] 44 ADDITIONAL INFORMATION This test was performed using the Coley RealTime HCV Genotype II assay ([employer] [place], [place]). Test Performed by: [place] [address] 45 no fibrosis Fibro Test Score Metavir Score 0.00-0.21 F0 no fibrosis 0.22-0.27 F0-F1 0.28-0.31 F1 minimal fibrosis 0.32-0.48 F1-F2 0.49-0.58 F2 moderate fibrosis 0.59-0.72 F3 advanced fibrosis 0.73-0.74 F3-F4 0.75-1.00 F4 severe fibrosis 46 no activity ActiTest Score Metavir Score 0.00-0.17 A0 no activity 0.18-0.29 A0-A1 0.30-0.36 A1 minimal activity 0.37-0.52 A1-A2 0.53-0.60 A2 significant activity 0.61-0.62 A2-A3 0.63-1.00 A3 severe activity 47 The reliability of results is dependent on compliance with the preanalytical and analytical conditions recommended by [employer]. The tests have to be deferred for: acute hemolysis, acute hepatitis, acute inflammation, extra hepatic cholestasis. The advice of a specialist should be sought for interpretation in chronic hemolysis and Gilbert's syndrome. The test interpretation is not validated in liver transplant patients. Isolated extreme values of one of the components should lead to caution in interpreting the results. In case of discordance between a biopsy result and a test, it is recommended to seek the advice of a specialist. The causes of these discordances could be due to a flaw of the test or to a flaw in the biopsy: i.e. a liver biopsy has a 33% variability rate for one fibrosis stage. FibroTest is interpretable for chronic hepatitis B and C, alcoholic and non alcoholic steatosis. ActiTest is interpretable for chronic hepatitis B and C. The performance characteristics have been determined by [facility]. It has not been cleared or approved by the U.S. Food and Drug Administration. Performance characteristics refer to the analytical performance of the test. Angella Joy, the associated logo, [employer] and all associated [employer] yoon are the registered trademarks of [employer]. All third republican yoon - (R) and (TM) - are the property of their respective owners. (C) [id number] [employer]. All rights reserved. Test Performed by: [employer] [address] [place] [address] 48 <5.0 Negative 5.0 - 25.0 Indeterminate (Repeat testing recommended after 72 hours) >25.0 Positive Perimenopausal women can display HCG levels of up to 20 mIU/mL 49 SEE RESULT BELOW Name: ELIAS SHERMAN : [address]: Deepa Mccoy MD Acct: [id number] Unit: [id number] AGE: 31 Location: ED Re05/26/17 SEX: F Status: DEP ER SPEC: [id number] LAUREANO: 05/26/[address]: Camelia HOLLAND REQ: [id number] RECD: 05/26/17 STATUS: JAVI MANZO DR: Morro Washington MD _ SOURCE: [facility]: Blood Cult Procedure Result Reported Site Aerobic Culture Bottle Final 05/31/171952 ML No Growth Day 5 Anaerobic Culture Bottle Final 05/31/171952 ML No Growth Day 5 * ML - Main Lab . END OF REPORT DEPARTMENT OF PATHOLOGY, [address] [place] [address] Robbi Mathur M.D. Director [facility] # [id number] 50 Acute inflammation: >10.00 51 Because ethnic data is not always readily [...] 15-29 5 Kidney failure <15 (or dialysis) 52 [facility] Severe Sepsis and Septic Shock Management Bundle Measure requires all lactic acids initially measuring >2.0 mmol/L be repeated. 53 SEE RESULT BELOW Name: ELIAS SHERMAN : [address]: Deepa Mccoy MD Acct: [id number] Unit: [id number] AGE: 31 Location: ED Re05/26/17 SEX: F Status: DEP ER SPEC: [id number] LAUREANO: 05/26/17-[address]: Camelia HOLLAND REQ: [id number] RECD: 05/26/17 STATUS: JAVI MANZO DR: Morro Washington MD _ SOURCE: URINE [facility]: ORDERED: Urine Culture Procedure Result Reported Site Urine Culture Final 05/28/17- 0900 ML Organism 1 ESCHERICHIA COLI [place] Count >100,000 (Many) CFU/ML 1. ESCHERICHIA COLI M.I.C. RX --------- ------ Ampicillin >=32 R Cefazolin 8 S Cefepime <=1 S Ceftriaxone <=1 S Ciprofloxacin >=4 R Gentamicin <=1 S Levofloxacin >=8 R Meropenem <=0.25 S Nitrofurantoin <=16 S Tetracycline 4 S Pipercillin/Tazobactam 64 I Trimethoprim/Sulfamethoxazole >=320 R Amoxicillin/Clavulanic Acid >=32 R Aztreonam <=1 S Contact the Microbiology Department for any additional antibiotic reporting. * ML - Main Lab . END OF REPORT DEPARTMENT OF PATHOLOGY, [address] [place] [address] Robbi Mathur M.D. Director [facility] # [id number] 54 *Ascorbic acid is present which may interfere with detection of blood. 55 NE Blast 56 Because ethnic data is not always readily [...] 15-29 5 Kidney failure <15 (or dialysis) 57 Acute inflammation: >10.00 58 [facility] Severe Sepsis and Septic Shock Management Bundle Measure requires all lactic acids initially measuring >2.0 mmol/L be repeated. 59 Leukocytosis with absolute neutrophilia indicative of acute inflammatory/reactive process. Additional studies as clinically warranted. 60 SEE RESULT BELOW Name: ELIAS SHERMAN : [address]: Serafin Vergara MD Acct: [id number] Unit: [id number] AGE: 31 Location: ED Re05/25/17 SEX: F Status: DEP ER SPEC: [id number] LAUREANO: 05/25/17 [facility] [address]: Serafin Vergara MD REQ: [id number] RECD: 05/25/17 STATUS: JAVI MANZO DR: Vinod Washington MD _ SOURCE: BLOOD,VENO SPDESC: ORDERED: Blood Cult, MRSA/SA BC PCR COMMENTS: Verbal to [id number] by [id number] at 0753 on 05/26/17. Results read back accurately. Procedure Result Reported Site Aerobic Culture Bottle Final 05/28/17- 0808 ML Aerobic Bottle Gram Stain Gram Positive Cocci, resemb. Staph Organism 1 MRSA 1. MRSA M.I.C. RX --------- ------ Penicillin >=0.5 R Clindamycin <=0.25 S Erythromycin >=8 R Gentamicin <=0.5 S Linezolid 2 S Nitrofurantoin <=16 S Oxacillin >=4 R * Quinupristin/Dalfopristin 0.5 S Rifampin <=0.5 S Tetracycline <=1 S Doxycycline - Deduced S * Minocycline - Deduced S Trimethoprim/Sulfamethoxazole <=10 S Vancomycin 1 S Imipenem-Deduced R * Ampicillin/Sulbactam-Deduced R Cefazolin-Deduced R CONTINUED ON NEXT PAGE DEPARTMENT OF PATHOLOGY, [address] [place] [address] Robbi Mathur M.D. Director [facility] # [id number] Patient: ELIAS SHERMAN [id number] (Continued) Specimen: [id number] Collected: 05/25/17 Received: 05/25/17 (Continued) Procedure Result Reported Site Aerobic Culture Bottle Final (continued) * These antibiotics are not available in the [facility] Formulary Contact the Microbiology Department for any additional antibiotic reporting. Anaerobic Culture Bottle Final 05/30/17- 1033 ML No Growth Day 5 MRSA/S. aureus Blood Cult PCR Final 05/26/17- 0754 ML Organism 1 MRSA POSITIVE Organism 2 S.AUREUS POSITIVE * ML - Main Lab . END OF REPORT DEPARTMENT OF PATHOLOGY, [address] [place] [address] Robbi Mathur M.D. Director [facility] # [id number] 61 SEE RESULT BELOW Name: ELIAS SHERMAN : [address]: Serafin Vergara MD Acct: [id number] Unit: [id number] AGE: 31 Location: ED Re05/25/17 SEX: F Status: DEP ER SPEC: [id number] LAUREANO: 05/25/[address] [facility] [address]: Serafin Vergara MD REQ: [id number] RECD: 05/25/17 STATUS: RES [facility] DR: Vinod Washington MD _ SOURCE: NECK SPDESC: ORDERED: MRSA/SA SSTI, Culture Stain Procedure Result Reported Site MRSA/S. aureus SSTI PCR PENDING Wound/Misc Gram Stain Final 05/25/17- 1411 ML 3+ Neutrophils 2+ Epithelial Cells 2+ Nucleated Cells 3+ Gram Positive Cocci Wound/Misc Culture PENDING * ML - Main Lab . END OF REPORT DEPARTMENT OF PATHOLOGY, [address] [place] [address] Robbi Mathur M.D. Director [facility] # [id number] 62 SEE RESULT BELOW Name: ELIAS SHERMAN : [address]: Serafin Vergara MD Acct: [id number] Unit: [id number] AGE: 31 Location: ED Re05/25/17 SEX: F Status: DEP ER SPEC: [id number] LAUREANO: 05/25/17 [facility] [address]: Serafin Vergara MD REQ: [id number] RECD: 05/25/17 STATUS: JAVI MANZO DR: Vinod Washington MD _ SOURCE: NECK SPDESC: ORDERED: MRSA/SA SSTI, Culture Stain COMMENTS: Verbal to [id number] by [id number] at 1421 on 05/25/17. Results read back accurately. Procedure Result Reported Site MRSA/S. aureus SSTI PCR Final 05/25/17- 1423 ML Organism 1 MRSA POSITIVE Organism 2 S.AUREUS POSITIVE Wound/Misc Gram Stain Final 05/25/17- 1411 ML 3+ Neutrophils 2+ Epithelial Cells 2+ Nucleated Cells 3+ Gram Positive Cocci Wound/Misc Culture Final 05/27/17- 49 ML Organism 1 MRSA Quantity 3+ MRSA:Consistent with previous results. 1. MRSA M.I.C. RX --------- ------ Penicillin >=0.5 R Clindamycin <=0.25 S Erythromycin >=8 R Gentamicin <=0.5 S Linezolid 2 S Nitrofurantoin <=16 S Oxacillin >=4 R CONTINUED ON NEXT PAGE DEPARTMENT OF PATHOLOGY, [address] [place] [address] Robbi Mathur M.D. Director [facility] # [id number] Patient: ELIAS SHERMAN [id number] (Continued) Specimen: [id number] Collected: 05/25/17 Received: 05/25/17 (Continued) Procedure Result Reported Site Wound/Misc Culture Final (continued) 05/27/17948 1. MRSA (continued) M.I.C. RX --------- ------ * Quinupristin/Dalfopristin <=0.25 S Rifampin <=0.5 S Tetracycline <=1 S Doxycycline - Deduced S * Minocycline - Deduced S Trimethoprim/Sulfamethoxazole <=10 S Vancomycin <=0.5 S Imipenem-Deduced R * Ampicillin/Sulbactam-Deduced R Cefazolin-Deduced R * These antibiotics are not available in the [facility] Formulary Contact the Microbiology Department for any additional antibiotic reporting. * - Main Lab . END OF REPORT DEPARTMENT OF PATHOLOGY, [address] [place] [address] Robbi Mathur M.D. Director [facility] # [id number] 63 Delivery Truck Driver: [id number] If is still suspected, please repeat test after 48 to 72 hours. 64 [id number] 65 SEE RESULT BELOW Name: ELIAS SHERMAN : [address]: Beverly Mo MD Acct: [id number] Unit: [id number] AGE: 31 Location: [facility] Re05/24/17 SEX: F Status: DEP ER SPEC: [id number] LAUREANO: 05/24/17 [facility] [address]: Beverly Mo MD REQ: [id number] RECD: 05/24/17 STATUS: RES [facility] DR: Vinod Washington MD _ SOURCE: NECK SPDESC: ORDERED: MRSA/SA SSTI, Culture Stain COMMENTS: [id number] Procedure Result Reported Site MRSA/S. aureus SSTI PCR PENDING Wound/Misc Gram Stain Final 05/24/17- 1439 ML 4+ Neutrophils 1+ Nucleated Cells 2+ Gram Positive Cocci Wound/Misc Culture PENDING * ML - Main Lab . END OF REPORT DEPARTMENT OF PATHOLOGY, [address] [place] [address] Robbi Mathur M.D. Director [facility] # [id number] 66 SEE RESULT BELOW Name: ELIAS SHERMAN : [address]: Beverly Mo MD Acct: [id number] Unit: [id number] AGE: 31 Location: [facility] Re05/24/17 SEX: F Status: DEP ER SPEC: [id number] LAUREANO: 05/24/17 [facility] [address]: Beverly Mo MD REQ: [id number] RECD: 05/24/17 STATUS: JAVI [facility] DR: Vinod Washington MD _ SOURCE: NECK SPDESC: ORDERED: MRSA/SA SSTI, Culture Stain COMMENTS: [id number] Verbal to [id number] by [id number] at 1556 on 05/24/17. Results read back accurately. Procedure Result Reported Site MRSA/S. aureus SSTI PCR Final 05/24/17- 1557 ML Organism 1 MRSA POSITIVE Organism 2 S.AUREUS POSITIVE Wound/Misc Gram Stain Final 05/24/17- 1439 ML 4+ Neutrophils 1+ Nucleated Cells 2+ Gram Positive Cocci Wound/Misc Culture Final 05/26/17- 1036 ML Organism 1 MRSA Quantity 3+ MRSA:Consistent with previous results. 1. MRSA M.I.C. RX --------- ------ Penicillin >=0.5 R Clindamycin <=0.25 S Erythromycin >=8 R Gentamicin <=0.5 S Linezolid 2 S Nitrofurantoin <=16 S Oxacillin >=4 R CONTINUED ON NEXT PAGE DEPARTMENT OF PATHOLOGY, [address] [address] Robbi Mathur M.D. Director [facility] # [id number] Patient: ELIAS SHERMAN [id number] (Continued) Specimen: [id number] Collected: 05/24/17 Received: 05/24/17 (Continued) Procedure Result Reported Site Wound/Misc Culture Final (continued) 05/26/17- 1035 1. MRSA (continued) M.I.C. RX --------- ------ * Quinupristin/Dalfopristin <=0.25 S Rifampin <=0.5 S Tetracycline <=1 S Doxycycline - Deduced S * Minocycline - Deduced S Trimethoprim/Sulfamethoxazole <=10 S Vancomycin <=0.5 S Imipenem-Deduced R * Ampicillin/Sulbactam-Deduced R Cefazolin-Deduced R * These antibiotics are not available in the [facility] Formulary Contact the Microbiology Department for any additional antibiotic reporting. * - [facility] . END OF REPORT DEPARTMENT OF PATHOLOGY, [address] [place] [address] Robbi Mathur M.D. Director [facility] # [id number] 67 REFERENCE VALUE Cutoff: 3.0 68 ADDITIONAL INFORMATION This report is intended for use in clinical monitoring and management of patients. It is not intended for use in employment-related testing. This test was developed and its performance characteristics determined by [facility] in a manner consistent with CLIA requirements. This test has not been cleared or approved by the U.S. Food and Drug Administration. Test Performed by: [facility] - [address] [address] 69 ADDITIONAL INFORMATION This report is intended for use in clinical monitoring and management of patients. It is not intended for use in employment-related testing. This test was developed and its performance characteristics determined by [facility] in a manner consistent with CLIA requirements. This test has not been cleared or approved by the U.S. Food and Drug Administration. Test Performed by: [facility] - [facility] [address] [facility], [place] [address] 70 REFERENCE VALUE Cutoff: 500 71 REFERENCE VALUE Cutoff: 200 72 REFERENCE VALUE Cutoff: 100 73 Presumptive Positive Drug confirmation to follow. Presumptive Positive means that the screening method is positive, but the test needs to be run by a confirmatory method before being finalized. REFERENCE VALUE Cutoff: 150 74 Presumptive Positive Drug confirmation to follow. Presumptive Positive means that the screening method is positive, but the test needs to be run by a confirmatory method before being finalized. ADDITIONAL INFORMATION This report is intended for use in clinical monitoring or management of patients. It is not intended for use in employment-related testing. 75 REFERENCE VALUE Cutoff: 200 mg/L 76 Tylenol 3 77 Metabolite of codeine REFERENCE VALUE Cutoff: 100 78 Aleida Aden, MS Contin; Also a minor metabolite (10%) of codeine and can be seen in low concentrations (<2,000 ng/mL) with poppy seed ingestion. 79 Metabolite of morphine REFERENCE VALUE Cutoff: 100 80 Metabolite of heroin 81 Lortab, Block[place], Vicodin; Also a very minor metabolite of codeine and impurity (<1%) of oxycodone. 82 Metabolite of hydrocodone 83 Metabolite of hydrocodone 84 Dilaudid, Exalgo; Also a metabolite of hydrocodone and a minor (<5%) metabolite of morphine. 85 Metabolite of hydromorphone REFERENCE VALUE Cutoff: 100 86 Endocet, Percocet, Oxycontin 87 Metabolite of oxycodone 88 Numorphan, Opana; Also a metabolite of oxycodone. 89 Metabolite of oxymorphone REFERENCE VALUE Cutoff: 100 90 Metabolite of oxymorphone 91 Actiq, Duragesic, Fentora 92 Metabolite of fentanyl 93 Demerol 94 Metabolite of meperidine 95 Narcan 96 Metabolite of naloxone REFERENCE VALUE Cutoff: 100 97 Dolophine 98 Metabolite of methadone 99 Darvon, Darvocet 100 Metabolite of propoxyphene 101 Tradol, Ultram, Ultracet 102 Metabolite of tramadol 103 Nucynta 104 Metabolite of tapentadol 105 Metabolite of tapentadol REFERENCE VALUE Cutoff: 100 106 Buprenex, Suboxone 107 Metabolite of buprenorphine 108 Metabolite of buprenorphine 109 Test detected the presence of buprenorphine and its metabolites (norbuprenorphine, norbuprenorphine glucuronide). Suspect use of buprenorphine within the past three days. Test detected the presence of wmuwprsb-9-pmkc-glucuronide (metabolite of naloxone) only. Suspect use of naloxone (Narcan) within the past three days. ADDITIONAL INFORMATION This test was developed and its performance characteristics determined by [facility] in a manner consistent with CLIA requirements. This test has not been cleared or approved by the U.S. Food and Drug Administration. Test Performed by: [facility] Handseeing Information [place] [address] 110 Because ethnic data is not always readily [...] 15-29 5 Kidney failure <15 (or dialysis) 111 Serologic response to B. burgdorferi infection is not detected, but cannot rule out early infection during which low or undetectable antibody levels to B. burgdorferi may be present. If clinically indicated, a new serum specimen should be submitted in 7-14 days. Test Performed by: [facility] Handseeing Information [place] [address] 112 Normal Range 180 to 914 Indeterminate Range 145 to 180 Deficient Range <145 113 REFERENCE VALUE Cutoff: 500 114 REFERENCE VALUE Cutoff: 200 115 REFERENCE VALUE Cutoff: 100 116 REFERENCE VALUE Cutoff: 150 117 Presumptive Positive Drug confirmation to follow. Presumptive Positive means that the screening method is positive, but the test needs to be run by a confirmatory method before being finalized. ADDITIONAL INFORMATION This report is intended for use in clinical monitoring or management of patients. It is not intended for use in employment-related testing. 118 REFERENCE VALUE Cutoff: 200 mg/L 119 Tylenol 3 120 Metabolite of codeine REFERENCE VALUE Cutoff: 100 121 Aleida Aden, MS Contin; Also a minor metabolite (10%) of codeine and can be seen in low concentrations (<2,000 ng/mL) with poppy seed ingestion. 122 Metabolite of morphine REFERENCE VALUE Cutoff: 100 123 Metabolite of heroin 124 Lortab, Blockton, Vicodin; Also a very minor metabolite of codeine and impurity (<1%) of oxycodone. 125 Metabolite of hydrocodone 126 Metabolite of hydrocodone 127 Dilaudid, Exalgo; Also a metabolite of hydrocodone and a minor (<5%) metabolite of morphine. 128 Metabolite of hydromorphone REFERENCE VALUE Cutoff: 100 129 Endocet, Percocet, Oxycontin 130 Metabolite of oxycodone 131 Numorphan, Opana; Also a metabolite of oxycodone. 132 Metabolite of oxymorphone REFERENCE VALUE Cutoff: 100 133 Metabolite of oxymorphone 134 Actiq, Duragesic, Fentora 135 Metabolite of fentanyl 136 Demerol 137 Metabolite of meperidine 138 Narcan 139 Metabolite of naloxone REFERENCE VALUE Cutoff: 100 140 Dolophine 141 Metabolite of methadone 142 Darvon, Darvocet 143 Metabolite of propoxyphene 144 Tradol, Ultram, Ultracet 145 Metabolite of tramadol 146 Nucynta 147 Metabolite of tapentadol 148 Metabolite of tapentadol REFERENCE VALUE Cutoff: 100 149 Buprenex, Suboxone 150 Metabolite of buprenorphine 151 Metabolite of buprenorphine 152 Test detected the presence of norbuprenorphine and norbuprenorphine glucuronide which are metabolites of buprenorphine. Suspect use of buprenorphine within the past three days. Test detected the presence of gqardohz-8-gwwx-glucuronide (metabolite of naloxone) only. Suspect use of naloxone (Narcan) within the past three days. ADDITIONAL INFORMATION This test was developed and its performance characteristics determined by [facility] in a manner consistent with CLIA requirements. This test has not been cleared or approved by the U.S. Food and Drug Administration. Test Performed by: [facility] Handseeing Information - [address] [address] 153 REFERENCE VALUE Cutoff: 3.0 154 ADDITIONAL INFORMATION This report is intended for use in clinical monitoring and management of patients. It is not intended for use in employment-related testing. This test was developed and its performance characteristics determined by [facility] in a manner consistent with CLIA requirements. This test has not been cleared or approved by the U.S. Food and Drug Administration. Test Performed by: [facility] Handseeing Information - [address] [address] 155 Normal Range 180 to 914 Indeterminate Range 145 to 180 Deficient Range <145 156 Because ethnic data is not always readily [...] 15-29 5 Kidney failure <15 (or dialysis) 157 REFERENCE VALUE Cutoff: 3.0 158 ADDITIONAL INFORMATION This report is intended for use in clinical monitoring and management of patients. It is not intended for use in employment-related testing. This test was developed and its performance characteristics determined by [facility] in a manner consistent with CLIA requirements. This test has not been cleared or approved by the U.S. Food and Drug Administration. Test Performed by: [facility] Handseeing Information - [address] [address] 159 REFERENCE VALUE Cutoff: 500 160 REFERENCE VALUE Cutoff: 200 161 REFERENCE VALUE Cutoff: 100 162 REFERENCE VALUE Cutoff: 150 163 Presumptive Positive Drug confirmation to follow. Presumptive Positive means that the screening method is positive, but the test needs to be run by a confirmatory method before being finalized. ADDITIONAL INFORMATION This report is intended for use in clinical monitoring or management of patients. It is not intended for use in employment-related testing. 164 REFERENCE VALUE Cutoff: 200 mg/L 165 Tylenol 3 166 Metabolite of codeine REFERENCE VALUE Cutoff: 100 167 Aleida Aden, MS Contin; Also a minor metabolite (10%) of codeine and can be seen in low concentrations (<2,000 ng/mL) with poppy seed ingestion. 168 Metabolite of morphine REFERENCE VALUE Cutoff: 100 169 Metabolite of heroin 170 Lortab, Blockton, Vicodin; Also a very minor metabolite of codeine and impurity (<1%) of oxycodone. 171 Metabolite of hydrocodone 172 Metabolite of hydrocodone 173 Dilaudid, Exalgo; Also a metabolite of hydrocodone and a minor (<5%) metabolite of morphine. 174 Metabolite of hydromorphone REFERENCE VALUE Cutoff: 100 175 Endocet, Percocet, Oxycontin 176 Metabolite of oxycodone 177 Numorphan, Opana; Also a metabolite of oxycodone. 178 Metabolite of oxymorphone REFERENCE VALUE Cutoff: 100 179 Metabolite of oxymorphone 180 Actiq, Duragesic, Fentora 181 Metabolite of fentanyl 182 Demerol 183 Metabolite of meperidine 184 Narcan 185 Metabolite of naloxone REFERENCE VALUE Cutoff: 100 186 Dolophine 187 Metabolite of methadone 188 Darvon, Darvocet 189 Metabolite of propoxyphene 190 Tradol, Ultram, Ultracet 191 Metabolite of tramadol 192 Nucynta 193 Metabolite of tapentadol 194 Metabolite of tapentadol REFERENCE VALUE Cutoff: 100 195 Buprenex, Suboxone 196 Metabolite of buprenorphine 197 Metabolite of buprenorphine 198 Test detected the presence of norbuprenorphine and norbuprenorphine glucuronide which are metabolites of buprenorphine. Suspect use of buprenorphine within the past three days. Test detected the presence of exihfgtm-5-bkyr-glucuronide (metabolite of naloxone) only. Suspect use of naloxone (Narcan) within the past three days. ADDITIONAL INFORMATION This test was developed and its performance characteristics determined by [facility] in a manner consistent with CLIA requirements. This test has not been cleared or approved by the U.S. Food and Drug Administration. Test Performed by: [facility] - [address] [address] 199 SEE RESULT BELOW Name: ELIAS SHERMAN : [address]: Debby Washington MD Acct: [id number] Unit: [id number] AGE: 31 Location: [facility] Re11/30/16 SEX: F Status: REG REF SPEC: [id number] LAUREANO: 11/30/161433 [facility] DR: Vinod Washington MD REQ: [id number] RECD: 11/30/16 STATUS: COMP _ SOURCE: URINE SPDESC: ORDERED: Urine Culture Procedure Result Reported Site Urine Culture Final 12/02/16- 0744 ML Organism 1 ESCHERICHIA COLI [place] Count >100,000 (Many) CFU/ML 1. ESCHERICHIA COLI [...] any additional antibiotic reporting. * ML - MAIN LAB ([facility]) . END OF REPORT * ML=Testing performed at Main Lab DEPARTMENT OF PATHOLOGY, [address] [place] [address] Robbi Mathur M.D. Director SHAUNA # [id number] 200 REFERENCE VALUE Cutoff: 500 201 REFERENCE VALUE Cutoff: 200 202 REFERENCE VALUE Cutoff: 100 203 REFERENCE VALUE Cutoff: 150 204 Presumptive Positive Drug confirmation to follow. Presumptive Positive means that the screening method is positive, but the test needs to be run by a confirmatory method before being finalized. ADDITIONAL INFORMATION This report is intended for use in clinical monitoring or management of patients. It is not intended for use in employment-related testing. 205 REFERENCE VALUE Cutoff: 200 mg/L 206 Tylenol 3 207 Metabolite of codeine REFERENCE VALUE Cutoff: 100 208 Aleida Aden MS Contin; Also a minor metabolite (10%) of codeine and can be seen in low concentrations (<2,000 ng/mL) with poppy seed ingestion. 209 Metabolite of morphine REFERENCE VALUE Cutoff: 100 210 Metabolite of heroin 211 Lortab, Blockton, Vicodin; Also a very minor metabolite of codeine and impurity (<1%) of oxycodone. 212 Metabolite of hydrocodone 213 Metabolite of hydrocodone 214 Dilaudid, Exalgo; Also a metabolite of hydrocodone and a minor (<5%) metabolite of morphine. 215 Metabolite of hydromorphone REFERENCE VALUE Cutoff: 100 216 Endocet, Percocet, Oxycontin 217 Metabolite of oxycodone 218 Numorphan, Opana; Also a metabolite of oxycodone. 219 Metabolite of oxymorphone REFERENCE VALUE Cutoff: 100 220 Metabolite of oxymorphone 221 Actiq, Duragesic, Fentora 222 Metabolite of fentanyl 223 Demerol 224 Metabolite of meperidine 225 Narcan 226 Metabolite of naloxone REFERENCE VALUE Cutoff: 100 227 Dolophine 228 Metabolite of methadone 229 Darvon, Darvocet 230 Metabolite of propoxyphene 231 Tradol, Ultram, Ultracet 232 Metabolite of tramadol 233 Nucynta 234 Metabolite of tapentadol 235 Metabolite of tapentadol REFERENCE VALUE Cutoff: 100 236 Buprenex, Suboxone 237 Metabolite of buprenorphine 238 Metabolite of buprenorphine 239 Test detected the presence of norbuprenorphine and norbuprenorphine glucuronide which are metabolites of buprenorphine. Suspect use of buprenorphine within the past three days. Test detected the presence of jzkcuoay-5-glgl-glucuronide (metabolite of naloxone) only. Suspect use of naloxone (Narcan) within the past three days. ADDITIONAL INFORMATION This test was developed and its performance characteristics determined by [facility] in a manner consistent with CLIA requirements. This test has not been cleared or approved by the U.S. Food and Drug Administration. Test Performed by: [facility] Handseeing Information - [address] [address] 240 REFERENCE VALUE Cutoff: 3.0 241 ADDITIONAL INFORMATION This report is intended for use in clinical monitoring and management of patients. It is not intended for use in employment-related testing. This test was developed and its performance characteristics determined by [facility] in a manner consistent with CLIA requirements. This test has not been cleared or approved by the U.S. Food and Drug Administration. Test Performed by: [facility] - [address] [address] [id number] REFERENCE VALUE Cutoff: 500 244 REFERENCE VALUE Cutoff: 200 245 REFERENCE VALUE Cutoff: 100 246 REFERENCE VALUE Cutoff: 150 247 Presumptive Positive Drug confirmation to follow. Presumptive Positive means that the screening method is positive, but the test needs to be run by a confirmatory method before being finalized. ADDITIONAL INFORMATION This report is intended for use in clinical monitoring or management of patients. It is not intended for use in employment-related testing. 248 REFERENCE VALUE Cutoff: 200 mg/L 249 Tylenol 3 250 Metabolite of codeine REFERENCE VALUE Cutoff: 100 251 Aleida Aden MS Contin; Also a minor metabolite (10%) of codeine and can be seen in low concentrations (<2,000 ng/mL) with poppy seed ingestion. 252 Metabolite of morphine REFERENCE VALUE Cutoff: 100 253 Metabolite of heroin 254 Lortab, Blockton, Vicodin; Also a very minor metabolite of codeine and impurity (<1%) of oxycodone. 255 Metabolite of hydrocodone 256 Metabolite of hydrocodone 257 Dilaudid, Exalgo; Also a metabolite of hydrocodone and a minor (<5%) metabolite of morphine. 258 Metabolite of hydromorphone REFERENCE VALUE Cutoff: 100 259 Endocet, Percocet, Oxycontin 260 Metabolite of oxycodone 261 Numorphan, Opana; Also a metabolite of oxycodone. 262 Metabolite of oxymorphone REFERENCE VALUE Cutoff: 100 263 Metabolite of oxymorphone 264 Actiq, Duragesic, Fentora 265 Metabolite of fentanyl 266 Demerol 267 Metabolite of meperidine 268 Narcan 269 Metabolite of naloxone REFERENCE VALUE Cutoff: 100 270 Dolophine 271 Metabolite of methadone 272 Darvon, Darvocet 273 Metabolite of propoxyphene 274 Tradol, Ultram, Ultracet 275 Metabolite of tramadol 276 Nucynta 277 Metabolite of tapentadol 278 Metabolite of tapentadol REFERENCE VALUE Cutoff: 100 279 Buprenex, Suboxone 280 Metabolite of buprenorphine 281 Metabolite of buprenorphine 282 Test detected the presence of norbuprenorphine and norbuprenorphine glucuronide which are metabolites of buprenorphine. Suspect use of buprenorphine within the past three days. Test detected the presence of ddmsmaaq-0-mypz-glucuronide (metabolite of naloxone) only. Suspect use of naloxone (Narcan) within the past three days. ADDITIONAL INFORMATION This test was developed and its performance characteristics determined by [facility] in a manner consistent with CLIA requirements. This test has not been cleared or approved by the U.S. Food and Drug Administration. Test Performed by: [facility] - [address] [address] 283 REFERENCE VALUE Cutoff: 3.0 284 ADDITIONAL INFORMATION This report is intended for use in clinical monitoring and management of patients. It is not intended for use in employment-related testing. This test was developed and its performance characteristics determined by [facility] in a manner consistent with CLIA requirements. This test has not been cleared or approved by the U.S. Food and Drug Administration. Test Performed by: [facility] - [address] [address] 285 Normal Range 180 to 914 Indeterminate Range 145 to 180 Deficient Range <145 286 Therapeutic target for the treatment of diabetes Mellitus patients is <7% HBA1C, and in selective patients <6.0%.Please refer to [place] Diabetes Association Diabetic care guidelines for further information. 287 Result in log IU/mL is 6.37. ADDITIONAL INFORMATION The quantification range of this assay is 15 to 100,000,000 IU/mL (1.18 log to 8.00 log IU/mL). Testing was performed by the [employer] AmpliPrep/LORA TaqMan HCV Test, version 2.0 ([employer] Test Performed by: [facility] - [address] [address] 288 ADDITIONAL INFORMATION This test was performed using the [employer] RealTime HCV Genotype II assay ([employer] [place], [place]). Test Performed by: [facility] [address] [place] [address] 289 Presumptive Positive Drug confirmation to follow. Presumptive Positive means that the screening method is positive, but the test needs to be run by a confirmatory method before being finalized. REFERENCE VALUE Cutoff: 500 290 REFERENCE VALUE Cutoff: 200 291 REFERENCE VALUE Cutoff: 100 292 REFERENCE VALUE Cutoff: 150 293 Presumptive Positive Drug confirmation to follow. Presumptive Positive means that the screening method is positive, but the test needs to be run by a confirmatory method before being finalized. ADDITIONAL INFORMATION This report is intended for use in clinical monitoring or management of patients. It is not intended for use in employment-related testing. 294 REFERENCE VALUE Cutoff: 200 mg/L 295 Tylenol 3 296 Metabolite of codeine REFERENCE VALUE Cutoff: 100 297 Aleida Aden, MS Contin; Also a minor metabolite (10%) of codeine and can be seen in low concentrations (<2,000 ng/mL) with poppy seed ingestion. 298 Metabolite of morphine REFERENCE VALUE Cutoff: 100 299 Metabolite of heroin 300 Lortab, Blockton, Vicodin; Also a very minor metabolite of codeine and impurity (<1%) of oxycodone. 301 Metabolite of hydrocodone 302 Metabolite of hydrocodone 303 Dilaudid, Exalgo; Also a metabolite of hydrocodone and a minor (<5%) metabolite of morphine. 304 Metabolite of hydromorphone REFERENCE VALUE Cutoff: 100 305 Endocet, Percocet, Oxycontin 306 Metabolite of oxycodone 307 Numorphan, Opana; Also a metabolite of oxycodone. 308 Metabolite of oxymorphone REFERENCE VALUE Cutoff: 100 309 Metabolite of oxymorphone 310 Actiq, Duragesic, Fentora 311 Metabolite of fentanyl 312 Demerol 313 Metabolite of meperidine 314 Narcan 315 Metabolite of naloxone REFERENCE VALUE Cutoff: 100 316 Dolophine 317 Metabolite of methadone 318 Darvon, Darvocet 319 Metabolite of propoxyphene 320 Tradol, Ultram, Ultracet 321 Metabolite of tramadol 322 Nucynta 323 Metabolite of tapentadol 324 Metabolite of tapentadol REFERENCE VALUE Cutoff: 100 325 Buprenex, Suboxone 326 Metabolite of buprenorphine 327 Metabolite of buprenorphine 328 Test detected the presence of norbuprenorphine and norbuprenorphine glucuronide which are metabolites of buprenorphine. Suspect use of buprenorphine within the past three days. ADDITIONAL INFORMATION This test was developed and its performance characteristics determined by [facility] in a manner consistent with CLIA requirements. This test has not been cleared or approved by the U.S. Food and Drug Administration. Test Performed by: [facility] - [address] [address] 329 ADDITIONAL INFORMATION This report is intended for use in clinical monitoring and management of patients. It is not intended for use in employment-related testing. This test was developed and its performance characteristics determined by [facility] in a manner consistent with CLIA requirements. This test has not been cleared or approved by the U.S. Food and Drug Administration. Test Performed by: [facility] - [address] [address] 330 REFERENCE VALUE Cutoff: 3.0 331 ADDITIONAL INFORMATION This report is intended for use in clinical monitoring and management of patients. It is not intended for use in employment-related testing. This test was developed and its performance characteristics determined by [facility] in a manner consistent with CLIA requirements. This test has not been cleared or approved by the U.S. Food and Drug Administration. Test Performed by: [address] [address] Procedures Date CPT Code Description Status 06/01/2017 02260 ECHO Transthorasic Realtime 2D W Doppler & Color Completed Flow Hosp 04/21/2017 64865 Admin Of Inj Completed 12/26/2016 31223 Admin Of Inj Completed 10/17/2016 66768 Admin Of Inj Completed 08/22/2016 00416 Admin Of Inj Completed 08/01/2016 56548 Admin Of Inj Completed 08/07/2013 05890 Color Flow Doppler/Interp & Reprt Completed 08/07/2013 36950 Pulse Wave/Continuous-Interp.RPT Completed 08/07/2013 50119 Echocardiography, Transesophageal, Real Time W/Image 2D Completed W/W/O M-M 08/05/2013 75276 ECHO Transthorasic Realtime 2D W Doppler & Color Completed Flow Hosp 11/13/2009 80589 Xray Knee 3 Views Completed Encounters Type Date Location Provider CPT E/M Dx Office Visit 07/10/2017 [facility] Stephen Rosa 25245 B18.2 4:00p Infectious Diseases Sheeba Odonnell Office Visit 06/19/2017 [facility] 70506 B18.2 2:20p Infectious Nomi Odonnell M.D. Office Visit 06/02/2017 [facility] Rosa 89255 L02.11 10:08a Infectious Diseases Sheeba Odonnell L03.221 R78.81 Office Visit 06/02/2017 [facility] Cecelia Armstrong, [address] A41.02 2:26p Assoc,[facility] N39.0 B95.2 R21 Office Visit 06/01/2017 9:50a [facility] Stephen Rosa [address] L03.221 Infectious Diseases Sheeba Odonnell R61 R50.9 R53.81 R78.81 Office Visit 06/01/2017 [place] Jose Armstrong, [address] A41.02 2:25p Assoc,pc [facility] Hospital[facility] N39.0 B95.2 R21 Office Visit 05/31/2017 2:24p [facility] Assoc,chloe Chicas [address] A41.02 Hospitalists SOPHIE Mccarthy N39.0 B95.2 R21 Office Visit 05/16/2017 10:30a [facility] [place] [address] L23.2 Office Visit 05/08/2017 10:30a [facility] [place] [address] L23.2 Office Visit 04/21/2017 2:30p [facility] Internal Medicine - Vinod Washington, [address] D48.5 [place] Seth Aly,FACP F11.14 D51.9 Office Visit 04/07/2017 10:20a [facility] Internal Medicine - Prasanna SOPHIE Michele [address] R53.83 Ghassan M25.50 Z72.0 F41.9 Office Visit 01/31/2017 2:00p [facility] Internal Medicine Vinod Washington, [address] F33.1 - Ghassan Aly,FACP F11.14 B18.2 F17.210 Office Visit 12/26/2016 1:20p [facility] Internal Vinod Washington, [address] K80.00 Medicine - [place] Seth Aly,FACP K21.9 D51.9 F11.14 B18.2 Office Visit 10/17/2016 2:50p [facility] Internal Vinod Washington, [address] F11.14 Medicine - [place] Seth Aly,FACP L70.0 D51.9 G47.00 Office Visit 09/15/2016 4:40p [facility] Internal Medicine Vinod Washington, [address] R06.2 - [place] Seth Aly,FACP F11.14 F17.210 D51.9 N91.2 Office Visit 08/22/2016 2:50p [facility] Internal Vinod Washington, [address] A49.02 Medicine - [place] Seth Aly,FACP D51.9 F11.14 Office Visit 08/01/2016 4:20p [facility] Internal Medicine Vinod Washington, [address] D51.9 - [place] Seth Aly,FACP B18.2 F11.14 Office Visit 06/30/2016 1:40p [facility] Internal Vinod Washington, [address]78 F11.14 Medicine - [address] [address] Adelaida.Shelley,FACP F41.9 B18.2 Office Visit 05/02/2016 10:00a [facility] Internal Medicine - Prasanna Michele, [place] [address] G60.3 Ghassan M25.561 G47.62 Office Visit 08/12/2013 1:55p [facility] Fabi Arroyo, [address] 038.12 Hospitalists M.DKorey 451.83 682.4 304.40 Office Visit 08/11/2013 1:54p [facility], Esteban Ashvinnina, 70689 790.7 Hospitalists M.Shelley 451.83 682.4 304.40 Office Visit 08/10/2013 1:54p [facility] Martina Morris, 51462 451.83 Assoc, Hospitalists MKaitlin 682.4 304.40 296.22 Office Visit 08/09/2013 1:53p [facility] Martina Morris, 68161 451.83 Assoc, Hospitalists Sheeba 682.4 304.40 296.22 Office Visit 08/09/2013 10:16a [facility] Stephen Odonnell, 89832 041.12 Infectious Diseases M.D. 790.7 415.12 453.72 451.89 Office Visit 08/08/2013 1:53p [facility] Martina Morris, 28266 451.83 Assoc, Hospitalists Sheeba 682.4 304.40 296.22 Office Visit 08/08/2013 4:24p [facility] Stephen Odonnell, 42390 041.12 Infectious Diseases M.D. 790.7 451.89 415.12 453.72 Office Visit 08/07/2013 1:52p [facility] Martina Morris, 21500 451.83 Assoc, Hospitalists Sheeba 682.4 304.40 296.22 Office Visit 08/07/2013 4:20p [facility] Stephen Odonnell, 59077 041.12 Infectious Diseases M.D. 790.7 451.89 415.12 453.72 Office Visit 08/06/2013 1:51p [facility] Malik Harvey, 68161 451.83 Assoc,pc Hospitalists Sheeba 682.4 304.40 296.22 Office Visit 08/06/2013 4:14p [facility] Tad Odonnell, 41774 041.12 Infectious Diseases M.D. 790.7 288.63 451.89 Office Visit 08/05/2013 1:51p [facility] Malik Harvey, 53418 451.83 Assoc,pc Hospitalists Sheeba 682.4 304.40 Office Visit 08/05/2013 9:25a [facility] Tad Odonnell, 67225 041.12 Infectious Diseases M.D. 790.7 288.63 451.89 Office Visit 08/04/2013 1:50p [facility] Vinod Washington, 95611 451.83 Assoc,pc Hospitalists M.Shelley Hospitalist 682.4 304.40 Office Visit 08/04/2013 7:00a [facility] [address]1069 682.4 Of Jhony Perez M.D. Office Visit 08/03/2013 1:48p [facility] Vinod Washington, 42367 451.83 Assoc,pc MKaitlin Hospitalist Hospitalists 682.4 304.40 Office Visit 08/02/2013 1:46p [facility] Vinod Washington, 02735 451.83 Assoc,pc Hospitalists M.Shelley Hospitalist 682.4 304.40 Office Visit 11/13/2009 2:00p [facility], 70840 719.46 Jhony Aly Office Visit 10/02/2009 9:30a [facility], 42839 719.46 Jhony Aly 727.1 Plan of Care Future Appointment(s):12/04/2017 1:00 pm - Vinod Washington M.D.,FACP at [facility] Internal Medicine - [address]08/09/2017 - Tad Odonnell M.D.B18.2 Chronic viral hepatitis CFollow up:1 month
[2017-08-19 07:35] VITALS: BP 101/59
--- NOTE | 2017-08-19 07:36 | UC ---
Skin Complaint HPI - HPI Summary HPI Summary: Patient is 32 year old female who present today with left side scalp irritation and discharge with crusting that started last night. She has a h/o previous rash and sking infection for which she has seen Dr. Cabral and and she has an appointment on monday . Denies any fever or chill but has some cold symptoms 2 days ago,which has got better. Has a temp of 100.4F today. She uses the ketoconazole shampoo on a daily basis. Denies any cough chest pain or shortness of breath . Denies any abdominal pain , nausea or vomiting , diarrhea or constipation. - History of Current Complaint Time Seen by Provider: 08/19/17 07:19 Stated Complaint: SKIN COMPLAINT Hx Obtained From: Patient Hx Last Menstrual Period: 08/01/17 ?: No - LMP july mid Onset/Duration: Sudden Onset Skin Exposure Onset/Duration: Hours Ago Timing: Constant Onset Severity: Moderate Current Severity: Moderate Pain Intensity: 4 Pain Scale Used: 0-10 Numeric Location: Other - scalp Character: Swelling, Pruritus Aggravating Factor(s): Nothing Alleviating Factor(s): Nothing Associated Signs & Symptoms: Positive: Rash. Negative: Nausea, Vomiting, Difficulty Breathing, Fever, Chills, Cough, Wheezing, Chest Pain - Allergy/Home Medications Allergies/Adverse Reactions: Allergies Allergy/AdvReac Type Severity Reaction Status Date / Time No Known Allergies Allergy Verified 08/19/17 07:19 Home Medications: Home Medications Glecaprevir/Pibrentasvir [Mavyret 100-40 mg Tablet] 3 tab PO DAILY 08/19/17 [ History Confirmed 08/19/17] Medicated Shampoo 08/19/17 [History] Multivitamin [Multivitamins] 1 tab PO DAILY 08/19/17 [History Confirmed 08/19/17 ] Naproxen TAB* [Naprosyn 375 mg TAB*] 375 mg PO BID PRN 08/19/17 [History Confirmed 08/19/17] Review of Systems Constitutional: Negative Skin: Rash, Other - left scalp itching, crusting and mild drainage ENT: Negative Respiratory: Negative Cardiovascular: Negative Gastrointestinal: Negative Genitourinary: Negative Motor: Negative Neurovascular: Negative Musculoskeletal: Negative Neurological: Negative Psychological: Negative Is Patient Immunocompromised?: No All Other Systems Reviewed And Are Negative: Yes PMH/Surg Hx/FS Hx/Imm Hx Previously Healthy: Yes Other Endocrine History: negative Other Cardiovascular History: negative Other Respiratory History: negative GI/ History: Other - hepatitis C Other GI/ History: Hepatitis C Other Neurological History: negative Other Cancer History: negative Other History Of: Hepatitis C - Surgical History Surgical History: Yes Surgery Procedure, Year, and Place: Bone spurs and bunion removed on feet. - Family History Known Family History: Positive: Hypertension, Diabetes, Other - lung cancer - Social History Alcohol Use: Occasionally Alcohol Amount: none that pt reports Substance Use Type: Marijuana Substance Use Comment - Amount & Last Used: occasionally Smoking Status (MU): Heavy Every Day Tobacco Smoker Type: Cigarettes Amount Used/How Often: pack per day Length of Time of Smoking/Using Tobacco: 13 years Have You Smoked in the Last Year: Yes Household Exposure Type: Cigarettes - Immunization History Most Recent Influenza Vaccination: Fall 2016 Most Recent Tetanus Shot: unknown Most Recent Pneumonia Vaccination: unknown Physical Exam Triage Information Reviewed: Yes Appearance: Well-Appearing, Other: - dicomfort Vital Signs Reviewed: Yes Eyes: Positive: Conjunctiva Clear ENT: Positive: Pharynx normal, TMs normal. Negative: Pharyngeal erythema, Nasal congestion, Nasal drainage, Trismus, Hoarse voice Neck exam: Normal Neck: Positive: Supple Respiratory Exam: Normal Respiratory: Positive: Lungs clear. Negative: Stridor, Wheezing, Expiration Cardiovascular Exam: Normal Cardiovascular: Positive: RRR, No Murmur, Pulses Normal Abdominal Exam: Normal Abdomen Description: Positive: Nontender, Soft Bowel Sounds: Positive: Present Neurological: Positive: Alert Skin: Positive: Other - scalp: weepy area noted on the left side with honey crusting noted. No significant erythema. NO vesicles, or papules. Course/Dx - Course Course Of Treatment: we obtained the cultures. We discussed the findings and further plan. I will prescribe the medication to the pharmacy . Patient expressed understanding . - Diagnoses Provider Diagnoses: bacterial infection. Cellulitis Discharge - Sign-Out/Discharge Documenting (check all that apply): Discharge/Admit/Transfer - Discharge Plan Condition: Stable Disposition: HOME Prescriptions: Sulfamethox/Trimethoprim DS* [Bactrim DS 800/160 TAB*] 1 tab PO DAILY 10 Days # 20 tab Patient Education Materials: Cellulitis (ED) Referrals: Vinod Washington MD [Primary Care Provider] - Latai Fried [Medical Doctor] - (has appointmemnt of 08/21/17) Additional Instructions: Start taking antibiotics . It has been prescribed to the pharmacy . Keep your appointment with Dr. Fried in 2 day s. Return to Urgent care / ER if symptoms get worse. - Billing Disposition and Condition Condition: STABLE Disposition: HOME Images Head: 1 - left lateral scalp
--- NOTE | 2017-08-20 16:47 | UC ---
- Progress Note Progress Note: call part and assure lesion is improving ---if still present or worsening--- please go the emergency department for further care Discharge - Sign-Out/Discharge Documenting (check all that apply): Post-Discharge Follow Up - Discharge Plan Condition: Stable Disposition: HOME Prescriptions: Sulfamethox/Trimethoprim DS* [Bactrim DS 800/160 TAB*] 1 tab PO DAILY 10 Days # 20 tab Patient Education Materials: Cellulitis (ED) Referrals: Vinod Washington MD [Primary Care Provider] - Latia Fried [Medical Doctor] - (has appointmemnt of 08/21/17) Additional Instructions: Start taking antibiotics . It has been prescribed to the pharmacy . Keep your appointment with Dr. Fried in 2 day s. Return to Urgent care / ER if symptoms get worse. - Billing Disposition and Condition Condition: STABLE Disposition: Home
--- NOTE | 2017-08-21 15:27 | UC ---
- Progress Note Progress Note: Culture final with MRSA sensitive to Bactrim. She is on Bactrim No change. Discharge - Sign-Out/Discharge Documenting (check all that apply): Post-Discharge Follow Up - Discharge Plan Condition: Stable Disposition: HOME Prescriptions: Sulfamethox/Trimethoprim DS* [Bactrim DS 800/160 TAB*] 1 tab PO DAILY 10 Days # 20 tab Patient Education Materials: Cellulitis (ED) Referrals: Vinod Washington MD [Primary Care Provider] - Latia Fried [Medical Doctor] - (has appointmemnt of 08/21/17) Additional Instructions: Start taking antibiotics . It has been prescribed to the pharmacy . Keep your appointment with Dr. Fried in 2 day s. Return to Urgent care / ER if symptoms get worse. - Billing Disposition and Condition Condition: STABLE Disposition: Home
== END 2017-08-19 08:22 | disposition home or self-care (01) ==
LOC: UCEAST 07:10
DX: L03.811 Cellulitis of head [any part, except face] (principal); B95.62 Methicillin resistant Staphylococcus aureus infection as the cause of diseases classified elsewhere; Z82.49 Family history of ischemic heart disease and other diseases of the circulatory system; Z83.3 Family history of diabetes mellitus; Z80.1 Family history of malignant neoplasm of trachea, bronchus and lung; F17.210 Nicotine dependence, cigarettes, uncomplicated
CPT/HCPCS: 87070; 87077; 87186; 87205; 99212; G0463

== ENCOUNTER 2018-04-26 08:16 | Emergency (ER) | payer MEDICAID ==
[2018-04-26 10:43] VITALS: BP 107/59
--- NOTE | 2018-04-26 10:47 | UC ---
Lower Extremity/Ankle HPI - HPI Summary HPI Summary: LEFT ANKLE INJURY AFTER TWISTING HER LEFT ANKLE WHEN SHE MISSED A STEP 12 hours ago. Also concerned about previous UTI one week ago. Patient tested positive for . - History of Current Complaint Chief Complaint: UCLowerExtremity Stated Complaint: L ANKLE INJURY Time Seen by Provider: 04/26/18 08:48 Hx Obtained From: Patient Hx Last Menstrual Period: a month ago Pain Intensity: 6 Pain Scale Used: 0-10 Numeric - Allergies/Home Medications Allergies/Adverse Reactions: Allergies Allergy/AdvReac Type Severity Reaction Status Date / Time No Known Allergies Allergy Verified 04/26/18 08:29 Home Medications: Home Medications Aspirin 650 mg PO Q4HR PRN 04/26/18 [History Confirmed 04/26/18] PMH/Surg Hx/FS Hx/Imm Hx - Additional Past Medical History Additional PMH: MRSA; GERD; HEP C LNMP: one month ago. Previously Healthy: Yes Other History Of: Hepatitis C - Surgical History Surgical History: Yes Surgery Procedure, Year, and Place: Bone spurs and bunion removed on feet. 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 Alcohol Use: Occasionally Alcohol Amount: one beer every other night Substance Use Type: Marijuana, Prescribed Substance Use Comment - Amount & Last Used: pt on suboxone Smoking Status (MU): Heavy Every Day Tobacco Smoker Type: Cigarettes Amount Used/How Often: pack per day Length of Time of Smoking/Using Tobacco: 13 years Have You Smoked in the Last Year: Yes Household Exposure Type: Cigarettes - Immunization History Most Recent Influenza Vaccination: Fall 2016 Most Recent Tetanus Shot: unknown Most Recent Pneumonia Vaccination: unknown Review of Systems All Other Systems Reviewed And Are Negative: Yes Constitutional: Positive: Negative Skin: Positive: Negative Eyes: Positive: Negative ENT: Positive: Negative Respiratory: Positive: Negative Cardiovascular: Positive: Negative Gastrointestinal: Positive: Negative Genitourinary: Positive: Negative Motor: Positive: Negative Neurovascular: Positive: Negative Musculoskeletal: Positive: Decreased ROM, Edema, Other: - pain left ankle Neurological: Positive: Negative Psychological: Positive: Negative Physical Exam - Summary Physical Exam Summary: x ray: There are intact plate and screw fixator spanning the left great toe metatarsal. There is approximately 40 degrees of valgus angulation at the left great toe metatarsal phalangeal joint. The remaining visualized bones are intact and appropriately aligned. Degenerative changes include sclerotic change at the articulating surface proximally of the navicular bone. IMPRESSION: CHRONIC AND POSTSURGICAL CHANGES DESCRIBED ABOVE WITHOUT RADIOGRAPHICALLY APPARENT ACUTE FRACTURE OR DISLOCATION. Triage Information Reviewed: Yes Appearance: Well-Appearing, Pain Distress - left ankle discomfort Vital Signs: Initial Vital Signs Temp 98 F 04/26/18 08:21 Pulse 69 04/26/18 08:21 Resp 18 04/26/18 08:21 BP 118/67 04/26/18 08:21 Pulse Ox 100 04/26/18 08:21 Eye Exam: Normal ENT Exam: Normal Dental Exam: Normal Neck exam: Normal Neck: Positive: Supple Respiratory Exam: Normal Respiratory: Positive: Chest non-tender, Lungs clear, Normal breath sounds Cardiovascular Exam: Normal Cardiovascular: Positive: RRR, No Murmur, Pulses Normal Abdominal Exam: Normal Abdomen Description: Positive: Nontender, No Organomegaly, Soft. Negative: CVA Tenderness (R), CVA Tenderness (L) Musculoskeletal Exam: Normal Musculoskeletal: Positive: Edema @, Other: - edema, lateral left ankle; tender distal to lateral malleolus; no left knee injury. Neurological Exam: Normal Psychological Exam: Normal Skin Exam: Normal Lower Extremity Course/Dx - Course Course Of Treatment: left ankle lateral sprain, first degree. Multiple problems : positive . UA positive for leuks, previously treated one week ago. Patient will follow up. 2 previous pregnancies, aborted. will treat with keflex for UTI for 3 days. Crutches, restricted activity until can bear weight without pain. - Differential Dx/Diagnosis Differential Diagnosis/HQI/PQRI: Fracture (Closed), Sprain, Strain Provider Diagnosis: Left ankle sprain Discharge - Sign-Out/Discharge Documenting (check all that apply): Patient Departure All imaging exams completed and their final reports reviewed: Yes - Discharge Plan Condition: Stable Disposition: HOME Prescriptions: Cephalexin CAP* [Keflex 500 CAP*] 500 mg PO TID #10 cap MDD 3 Ibuprofen TAB* [Motrin TAB* 800 MG] 650 mg PO Q8HR #14 tab MDD 3 Patient Education Materials: Ankle Sprain (DC) Forms: *Work Release Referrals: Vinod Washington MD [Primary Care Provider] - Additional Instructions: WE DISCUSSED: PLEASE SEEK CARE AT THE EMERGENCY DEPARTMENT IF SYMPTOMS WORSEN OR IF NEW SYMPTOMS DEVELOP. FOLLOW UP WITH YOUR PRIMARY CARE PHYSICIAN IF CONDITION CONTINUES BEYOND 3 DAYS WITHOUT IMPROVEMENT. YOUR DIAGNOSIS IS: LEFT ANKLE SPRAIN YOUR PRESCRIPTION RECOMMENDATION IS: IBUPROFEN OTHER INSTRUCTIONS: You are . Follow up with ob-ob/gyn nurse. For pain: Ibuprofen (Motrin and other brand names) 400-600mg PLUS acetaminophen (Tylenol and other brand names) 500mg - 1000mg every 8 hours. Maximum is 3 doses a day. If this dosage is required for more than 5 days, you should re-check with your doctor. The combination of these two over-the- counter medications can be more effective than each one taken alone. Please check with the pharmacist if you have questions about your allergies to these medications. - Billing Disposition and Condition Condition: STABLE Disposition: Home
== END 2018-04-26 10:35 | disposition home or self-care (01) ==
LOC: UCEAST 08:16
DX: O9A.219 Injury, poisoning and certain other consequences of external causes complicating pregnancy, unspecified trimester (principal); O23.40 Unspecified infection of urinary tract in pregnancy, unspecified trimester; O99.330 Smoking (tobacco) complicating pregnancy, unspecified trimester; S93.492A Sprain of other ligament of left ankle, initial encounter; F17.210 Nicotine dependence, cigarettes, uncomplicated; Z79.82 Long term (current) use of aspirin; X50.9XXA Other and unspecified overexertion or strenuous movements or postures, initial encounter; Y92.9 Unspecified place or not applicable
CPT/HCPCS: 81003; 84702; 87077; 87086; 87186; 99213; G0463

== ENCOUNTER 2018-07-17 11:00 | Emergency (ER) | payer OTHER ==
--- NOTE | 2018-07-17 11:36 | ED ---
Psychiatric Complaint - History Of Current Complaint Chief Complaint: EDMentalHealth Time Seen by Provider: 07/17/18 11:13 Hx Obtained From: Patient Hx Last Menstrual Period: a month ago - Allergies/Home Medications Allergies/Adverse Reactions: Allergies Allergy/AdvReac Type Severity Reaction Status Date / Time No Known Allergies Allergy Verified 04/26/18 08:29 PMH/Surg Hx/FS Hx/Imm Hx Previously Healthy: Yes Endocrine/Hematology History: Denies: Hx Diabetes, Hx Thyroid Disease, Hx Anemia Cardiovascular History: Denies: Hx Congestive Heart Failure, Hx Hypertension, Hx Pacemaker/ICD Respiratory History: Denies: Hx Asthma, Hx Chronic Bronchitis - had bronchitis twice, Hx Chronic Obstructive Pulmonary Disease (COPD) GI History: Reports: Other GI Disorders - Takes Protonix Denies: Hx Ulcer History: Reports: Hx Kidney Infection - at age 15 or so, not in years Denies: Hx Renal Disease Comment Only: Other Problems/Disorders - Recent UTI Musculoskeletal History: Reports: Other Musculoskeletal History - knees and foot have cartilage problems Sensory History: Denies: Hx Contacts or Glasses, Hx Hearing Aid Opthamlomology History: Denies: Hx Contacts or Glasses Psychiatric History: Reports: Hx Attention Deficit Hyperactivity Disorder, Hx Depression, Hx Post Traumatic Stress Disorder, Hx Inpatient Treatment - Pt came from a dual diag facility as SW understands, Hx Substance Abuse Denies: Hx Eating Disorder, Hx Panic Disorder, Hx Suicide Attempt, Hx of Violent Episodes Against Others - Surgical History Surgery Procedure, Year, and Place: Bone spurs and bunion removed on feet. Infectious Disease History: No Infectious Disease History: Reports: Hx Hepatitis - type C, Hx of Known/ Suspected MRSA - in bloostream Denies: Hx Human Immunodeficiency Virus (HIV), Traveled Outside the [place] in Last 30 Days - Family History Known Family History: Positive: Cardiac Disease - CVA, Hypertension, Diabetes, Other - lung cancer - Social History Occupation: Employed Full-time Lives: With Family Alcohol Use: Occasionally Alcohol Amount: one beer every other night Substance Use Type: Reports: Marijuana, Prescribed Substance Use Comment - Amount & Last Used: pt on suboxone Smoking Status (MU): Heavy Every Day Tobacco Smoker Type: Cigarettes Amount Used/How Often: pack per day Length of Time of Smoking/Using Tobacco: 13 years Have You Smoked in the Last Year: Yes Review of Systems Constitutional: Negative Negative: Fever, Chills Cardiovascular: Negative Respiratory: Negative Gastrointestinal: Negative Genitourinary: Negative Positive: Anxious, Depressed All Other Systems Reviewed And Are Negative: Yes Physical Exam Triage Information Reviewed: Yes Vital Signs On Initial Exam: Initial Vitals Temp Pulse Resp BP Pulse Ox 97.9 F 77 16 134/73 98 07/17/18 11:05 07/17/18 11:05 07/17/18 11:05 07/17/18 11:05 07/17/18 11:05 Vital Signs Reviewed: Yes Appearance: Positive: Well-Appearing - Pt. sitting on bed in NAD. Anxous. Cooperative. S.O present. Skin: Positive: Warm, Dry Head/Face: Positive: Normal Head/Face Inspection Eyes: Positive: Normal, EOMI Neck: Positive: Supple Respiratory/Lung Sounds: Positive: Clear to Auscultation, Breath Sounds Present Cardiovascular: Positive: Normal, RRR Neurological: Positive: Normal, CN Intact II-III Psychiatric: Positive: Anxious Diagnostics - Vital Signs Vital Signs Temp Pulse Resp BP Pulse Ox 07/17/18 11:05 97.9 F 77 16 134/73 98 - Laboratory Lab Statement: Any lab studies that have been ordered have been reviewed, and results considered in the medical decision making process. Discharge - Discharge Plan Referrals: Vinod Washington MD [Primary Care Provider] -
[2018-07-17] MEDS ORDERED: Nicotine GUM* 2 MG PO ONE (11:49)
[2018-07-17 12:03] LABS: ABS Basophils 0 10^3/ul (0-0.2); ABS Eosinophils 0.1 10^3/ul (0-0.6); ABS Lymphocytes 2.5 10^3/ul (1.0-4.8); ABS Monocytes 0.7 10^3/ul (0-0.8); ABS Neutrophils 5.1 10^3/ul (1.5-7.7); ABS Nucleated RBC 0 10^3/ul; Eosinophil % 0.9 %; Hematocrit 35 % (33-41); Hemoglobin 12.1 g/dL (12.0-16.0); Lymphocyte % 29.7 %; Mean Corpuscular HGB Conc 35 g/dL (31-36); Mean Corpuscular Hemoglobin 33 pg (27-31); Mean Corpuscular Volume 95 fL (80-97); Mean Platelet Volume 8.7 fL (7.4-10.4); Nucleated Red Blood Cells % 0.2; Platelet Count 246 10^3/uL (150-450); Red Blood Count 3.66 10^6 /uL (3.70-4.87); Red Cell Distribution Width 13 % (10.5-15); White Blood Count 8.4 10^3/uL (3.5-10.8)
--- NOTE | 2018-07-17 12:04 | ED ---
Psychiatric Complaint - HPI Summary HPI Summary: Patient is a 33-year-old female who presents emergency Department with her significant other for a mental health evaluation. Patient is currently 16 weeks . She has a history of heroin use and is currently on Subutex. Patient states she has been very stressed out at work and has been feeling very hopeless and feels she does not want to live anymore. Symptoms are moderate in severity. Patient states that she is trying to get into outpatient therapy but has not been successful. No current modifying factors. Patient follows with a local teamsite developer and states everything is going very well with the baby so far. - History Of Current Complaint Chief Complaint: EDMentalHealth Time Seen by Provider: 07/17/18 11:13 Hx Obtained From: Patient Hx Last Menstrual Period: a month ago - Allergies/Home Medications Allergies/Adverse Reactions: Allergies Allergy/AdvReac Type Severity Reaction Status Date / Time No Known Allergies Allergy Verified 04/26/18 08:29 Home Medications: Home Medications Aspirin TAB* [Aspirin 325 MG TAB*] 650 mg PO Q4HR PRN 07/17/18 [History Confirmed 07/17/18] Buprenorphine TAB* [Subutex TAB*] 2 mg SL TID 07/17/18 [History Confirmed ] Gabapentin TAB(NF) [Neurontin 600 mg TAB(NF)] 1,200 mg PO BEDTIME 07/17/18 [ History Confirmed 07/17/18] Gabapentin TAB(NF) [Neurontin 600 mg TAB(NF)] 1,200 mg PO BEDTIME 07/17/18 [ History Confirmed 07/17/18] Meclizine TAB* [Antivert 12.5 TAB*] 25 mg PO DAILY 07/17/18 [History Confirmed 07/17/18] 47/Iron/Folate 1/Dha [Pnv-Dha] 1 cap PO DAILY 07/17/18 [History Confirmed 07/17/18] Ranitidine TAB (NF) [Zantac TAB (NF)] 150 mg PO BID 07/17/18 [History Confirmed 07/17/18] hydrOXYzine HCL TAB* [Atarax 25 MG TAB*] 25 mg PO QPM PRN 07/17/18 [History Confirmed 07/17/18] PMH/Surg Hx/FS Hx/Imm Hx Previously Healthy: Yes Endocrine/Hematology History: Denies: Hx Diabetes, Hx Thyroid Disease, Hx Anemia Cardiovascular History: Denies: Hx Congestive Heart Failure, Hx Hypertension, Hx Pacemaker/ICD Respiratory History: Denies: Hx Asthma, Hx Chronic Bronchitis - had bronchitis twice, Hx Chronic Obstructive Pulmonary Disease (COPD) GI History: Reports: Other GI Disorders - Takes Protonix Denies: Hx Ulcer History: Reports: Hx Kidney Infection - at age 15 or so, not in years Denies: Hx Renal Disease Comment Only: Other Problems/Disorders - Recent UTI Musculoskeletal History: Reports: Other Musculoskeletal History - knees and foot have cartilage problems Sensory History: Denies: Hx Contacts or Glasses Opthamlomology History: Denies: Hx Contacts or Glasses Psychiatric History: Reports: Hx Attention Deficit Hyperactivity Disorder, Hx Depression, Hx Post Traumatic Stress Disorder, Hx Inpatient Treatment - Pt came from a dual diag facility as SW understands, Hx Substance Abuse Denies: Hx Eating Disorder, Hx Panic Disorder, Hx Suicide Attempt, Hx of Violent Episodes Against Others - Surgical History Surgery Procedure, Year, and Place: Bone spurs and bunion removed on feet. Infectious Disease History: No Infectious Disease History: Reports: Hx Hepatitis - type C, Hx of Known/ Suspected MRSA - in bloostream Denies: Hx Human Immunodeficiency Virus (HIV), Traveled Outside the [place] in Last 30 Days - Family History Known Family History: Positive: Cardiac Disease - CVA, Hypertension, Diabetes, Other - lung cancer - Social History Occupation: Employed Full-time Lives: With Family Alcohol Use: Occasionally Alcohol Amount: one beer every other night Substance Use Type: Reports: Marijuana, Prescribed Substance Use Comment - Amount & Last Used: pt on suboxone Smoking Status (MU): Heavy Every Day Tobacco Smoker Type: Cigarettes Amount Used/How Often: pack per day Length of Time of Smoking/Using Tobacco: 13 years Have You Smoked in the Last Year: Yes Review of Systems Constitutional: Negative Negative: Fever, Chills Cardiovascular: Negative Respiratory: Negative Gastrointestinal: Negative Genitourinary: Negative Positive: Anxious, Depressed All Other Systems Reviewed And Are Negative: Yes Physical Exam Triage Information Reviewed: Yes Vital Signs On Initial Exam: Initial Vitals Temp Pulse Resp BP Pulse Ox 97.9 F 77 16 134/73 98 07/17/18 11:05 07/17/18 11:05 07/17/18 11:05 07/17/18 11:05 07/17/18 11:05 Vital Signs Reviewed: Yes Appearance: Positive: Well-Appearing - Pt. sitting on bed in NAD. Anxous. Cooperative. S.O present. Skin: Positive: Warm, Dry Head/Face: Positive: Normal Head/Face Inspection Eyes: Positive: Normal, EOMI Neck: Positive: Supple Respiratory/Lung Sounds: Positive: Clear to Auscultation, Breath Sounds Present Cardiovascular: Positive: Normal, RRR Neurological: Positive: Normal, CN Intact II-III Psychiatric: Positive: Anxious Diagnostics - Vital Signs Vital Signs Temp Pulse Resp BP Pulse Ox 07/17/18 11:05 97.9 F 77 16 134/73 98 - Laboratory Result Diagrams: 07/17/18 11:52 07/17/18 11:52 Lab Statement: Any lab studies that have been ordered have been reviewed, and results considered in the medical decision making process. Course/Dx - Course Course Of Treatment: Patient presenting for mental evaluation. She is medically cleared. Pending mental health evaluation. Pt. was evaluated by social work case manager and Dr. Bansal in the ER. He does not feel she meets admission criteria at this time. He rx pt. wellbutrin. Pt. will f.u outpt. To return to ER if sxs change or worsen. - Differential Dx/Clinical Impression Differential Diagnosis/HQI/PQRI: Positive: Depression, Suicidal Ideation Provider Diagnosis: Depression Discharge - Sign-Out/Discharge Documenting (check all that apply): Patient Departure Patient Received Moderate/Deep Sedation with Procedure: No - Discharge Plan Condition: Good Disposition: HOME Prescriptions: Bupropion XL* [Wellbutrin XL *] 150 mg PO DAILY #14 tab Patient Education Materials: Anxiety (ED) Referrals: Vinod Washington MD [Primary Care Provider] - Additional Instructions: Follow up with [facility] Take wellbutrin as prescribed Return to ER if symptoms change or worsen - Billing Disposition and Condition Condition: GOOD Disposition: Home
[2018-07-17 12:21] LABS: ALT 15 U/L (7-52); AST 23 U/L (13-39); Albumin/Globulin Ratio 1.5 (1-3); Alkaline Phosphatase 52 U/L (34-104); Anion Gap 9 mmol/L (2-11); BUN/Creatinine Ratio 16.4 (8-20); Blood Urea Nitrogen 10 mg/dL (6-24); CO2 Carbon Dioxide 22 mmol/L (22-32); Calcium 9.4 mg/dL (8.6-10.3); Chloride 105 mmol/L (101-111); EGFR African American 135.9 (>60); EGFR Non-African American 112.3 (>60); Globulin 2.6 g/dL (2-4); Glucose 111 mg/dL (70-100); Potassium 3.6 mmol/L (3.5-5.0); Sodium 136 mmol/L (135-145); Total Protein 6.6 g/dL (6.4-8.9)
[2018-07-17 12:41] LABS: Acetaminophen < 15 mcg/mL; Alcohol < 10 mg/dL (<10); Salicylate < 2.50 mg/dL (<30)
[2018-07-17 12:56] LABS: TSH (Thyroid Stimulating Horm) 0.62 mcIU/mL (0.34-5.60)
--- NOTE | 2018-07-17 14:19 | PN ---
ED Flex Patient Progress Note Date of Service: 07/17/18 Subjective: CC " I used cocaine" The patient was brought to [facility] emergency room by her boyfriend. She used cocaine last night because she has been feeling depressed lately. She feels bad about using while being 16 weeks . She reported that she works at [employer] and feels life has gotten dull. She reported that she has a good boyfriend and should be happy with her life. She denied access to firearms or stockpiles of medications. The patient denied suicidal and or homicidal ideation intent or plan. The patient denied auditory and/ or visual hallucinations. She looks forward to having her baby. At this time she doesnt want to kill herself and doesnt have a plan to do so. She declined when offered to come to the inpatient psychiatric unit. MDD Lately she reported having diminished interests which were found to be enjoyable in the past. She reported feeling sad lately , with a loss of energy or lack of motivation to complete tasks. She has felt guilty about using cocaine and smoking while being . Bipolar Denied symptoms of joao such as having many ideas at once. Denied increased talkativeness where no one can interrupt. Denied feeling irritable most of the time while having an persistent abundance of energy most of the day without the use of energy drinks, stimulants, or recreational drug use. Denied an increase in intensity in goal directed activities. Denied having the decreased need to sleep for days , having prolonged elevated heighted mood , or feeling on top of the world. Denied impulsive risky sexual encounters. Denied spending money recklessly , going on spending sprees wiping out savings. Denied impulsively traveling out of town or country, having super ramos, and unrealistic wealth or fame. Anxiety Denied having symptoms of anxiety such as having times where heart feels that it is beating out of chest , sweaty palms, or shallow breathing. Denied having uncomfortable or intrusive thoughts. Denied feeling restless, high strung, or worrying too much most of the time. Psychosis Does not endorse hearing things that other people do not hear or seeing things other people do not see. Denied feeling that TV is making references. Denied feeling that people are spying , following , or reading their thoughts. Phobias: Patient denied having excessive fear of a particular thing or situation. Eating disorders: Patient denied having excessive eating habits or feelings of guilt after eating. Denied repeated episodes of self induced vomiting after eating. PTSD Denied flashbacks, nightmares and avoidance of a prior traumatic event. PAST PSYCHIATRIC HISTORY: Prior Diagnosis : Major depressive Disorder, History of opiate use disorder History of past Psychiatric Hospitalizations: 1 prior psychiatric admission in [place] at [facility] History of past suicide/homicide attempts : Denied past suicide attempts. Denied past homicidal incidents. Outpatient follow-up: [facility] Medications: Past trials of medications include zoloft, wellbutrin, subutex Guardianship: None. FAMILY HISTORY: - Suicide: Denied family history of suicide. - Mental illness: Denied a history of mental health in immediate family members. - Substance abuse: Denied substance abuse among family members. SUBSTANCE ABUSE HISTORY: - EtOH: Denied - Tobacco: currently smokes 1/4 ppd - Cannabis: Denied using recently or in the past. - Heroin: used in the past last time of use was 2 years ago - Cocaine: last use was within 24 hours SOCIAL HISTORY: Currently lives with her boyfriend and works at [employer] PAST MEDICAL HISTORY: Denied heart disease, diabetes, cancer and/ or other medical conditions. - Allergies: Denied drug or other allergies. Physical Exam: Please see ED note Mental Status Exam APPEARANCE : 33 year old female who appears stated age. Patient is not malodourous, and appears to have fair hygiene and grooming. BEHAVIOR: Cooperative , calm EYE CONTACT: Fair PSYCHOMOTOR ACTIVITY: No psychomotor agitation or retardation. MOVEMENTS: No abnormal movements observed. SPEECH : Normal rate, rhythm, volume and tone. MOOD : "sad " AFFECT : Type is depressed, Range is restricted depth is shallow Mood congruent Stable THOUGHT PROCESS: formulated and organized in a logical, linear goal directed manner. No flight of ideas , neologism (made up words) , perseveration , tangential , loose associations , or circumstantiality. THOUGHT CONTENT: no delusions, preoccupations, obsessions, phobias or preoccupations. PERCEPTION: No current auditory or visual hallucinations. Doesnt appear to be responding to internal cues. No evidence of depersonalization , de-realization, or illusions SUICIDALITY Denied suicidal ideation, intent or plan. HOMICIDALITY Denied homicidal ideation, intent or plan. Insight/judgment: Poor insight and judgment ORIENTATION: Oriented to self, location, and time. Diagnosis Major depressive disorder. Tobacco use disorder Assessment: 33 year old female with history of depression and opiate use disorder came to the ED for depression Plan # Patient doesnt require inpatient psychiatric admission and can be discharged to her boyfriend. # Follow up care arranged for [facility] # Given 14 day supply without refills of Wellbutrin 150mg daily for depression - safe in and also used to help quit smoking # Advised to follow up with her OBGYN and PCP # Substance Abuse resources offered and declined # Tobacco use disorder: Nicotine cessation resources offered and informed of NA # Informed of dangers of Drug use and smoking in were discussed # Collateral obtained from her boyfriend and advised to call 911 in the event of a emergency Risk factors: History of depression and substance abuse Protective factors: Currently no suicidal ideation, intent or plan. No prior history of suicide attempt. Has boyfriend and lives with him. No history of service. not in an occupation of social isolation, doesn t have multiple medical conditions, no family history of suicide, doesnt have access to firearms. Doesnt have command hallucinations and or psychotic features at this time. Not a anniversary of a loss of a loved one. No changes in relationship status, housing, job, or school The risks, benefits, and alternative treatment options were discussed as well as of the risks of refusing treatment. After this discussion and an acknowledgement of this understanding was made. A risk/ benefit assessment of treatment was considered and discussed with the patient. When comparing the risks of treatment with the dangers of not receiving treatment, the benefits of treatment outweigh the treatment risks at this time. Risks of suicidal ideation , behavioral changes, dystonia, movement disorders, risks of use during , serotonin syndrome, metabolic risks were among some of the risks discussed. Vital Signs Temp Pulse Resp BP Pulse Ox 97.9 F 77 16 134/73 98 07/17/18 11:05 07/17/18 11:05 07/17/18 11:05 07/17/18 11:05 07/17/18 11:05 Lab Results - Entire Visit 07/17/18 07/17/18 11:52 11:52 WBC 8.4 RBC 3.66 L Hgb 12.1 Hct 35 MCV 95 MCH 33 H MCHC 35 RDW 13 Plt Count 246 MPV 8.7 Neut % (Auto) 61.4 Lymph % (Auto) 29.7 Hanson % (Auto) 7.8 Eos % (Auto) 0.9 Baso % (Auto) 0.2 Absolute Neuts (auto) 5.1 Absolute Lymphs (auto) 2.5 Absolute Monos (auto) 0.7 Absolute Eos (auto) 0.1 Absolute Basos (auto) 0 Absolute Nucleated RBC 0 Nucleated RBC % 0.2 Sodium 136 Potassium 3.6 Chloride 105 Carbon Dioxide 22 Anion Gap 9 BUN 10 Creatinine 0.61 Est GFR ( Amer) 135.9 Est GFR (Non-Af Amer) 112.3 BUN/Creatinine Ratio 16.4 Glucose 111 H Calcium 9.4 Total Bilirubin 0.40 AST 23 ALT 15 Alkaline Phosphatase 52 Total Protein 6.6 Albumin 4.0 Globulin 2.6 Albumin/Globulin Ratio 1.5 TSH 0.62 Salicylates < 2.50 Acetaminophen < 15 Serum Alcohol < 10
[2018-07-17] MEDS ORDERED: BuPROPion XL* 150 MG TAB.XL PO ONE (14:20)
[2018-07-17 15:02] VITALS: BP 127/54
[2018-07-18] MEDS ORDERED: BuPROPion XL* 150 MG TAB.XL PO ONE (14:20)
== END 2018-07-17 15:01 | disposition home or self-care (01) ==
LOC: ED 11:00
DX: F32.9 Major depressive disorder, single episode, unspecified (principal); F41.9 Anxiety disorder, unspecified; F17.210 Nicotine dependence, cigarettes, uncomplicated
CPT/HCPCS: 36415; 80053; 80320; 80329; 84443; 85025; 99285; A9270-GY; G0480

== ENCOUNTER 2018-12-26 17:08 | Inpatient (IN) | payer OTHER ==
[2018-12-26] MEDS ORDERED: Buffered Lidocaine 1% SYRIN* 1 ML/SYRINGE INTRADERM ONE (22:44)
[2018-12-26] MEDS ORDERED: Dinoprostone* 10 MG VAG.SUPP VAGINAL ONE (22:44)
[2018-12-26] MEDS ORDERED: Promethazine INJ(RESTRICTED)* 25 MG/ML 1 ML VIAL IV ONE (22:44)
[2018-12-26] MEDS ORDERED: Nalbuphine* 10 MG/ML 1 ML VIAL IV ONE (22:44)
[2018-12-26] MEDS ORDERED: Lactated Ringers 1000 ML Bag* 1,000 ML IV ONE (22:44)
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
[2018-12-26] MEDS ORDERED: Lactated Ringers 1000 ML Bag* 1,000 ML IV SCH (23:00)
[2018-12-26] MEDS ORDERED: Buprenorphine TAB* 8 MG PO ONE (23:45)
[2018-12-26] MEDS ORDERED: Buprenorphine TAB* 8 MG PO SCH (23:45)
[2018-12-27 00:15] LABS: Hematocrit 36 % (35-47); Hemoglobin 12.5 g/dL (12.0-16.0); Mean Corpuscular HGB Conc 35 g/dL (31-36); Mean Corpuscular Hemoglobin 34 pg (27-31); Mean Corpuscular Volume 98 fL (80-97); Mean Platelet Volume 9.4 fL (7.4-10.4); Platelet Count 256 10^3/uL (150-450); Red Blood Count 3.69 10^6 /uL (3.70-4.87); Red Cell Distribution Width 13 % (10-15); White Blood Count 12.2 10^3/uL (3.5-10.8)
[2018-12-27] MEDS: Gabapentin CAP(*) 300 MG PO SCH ×2 (00:17→09:42)
[2018-12-27] MEDS ORDERED: Nalbuphine* 10 MG/ML 1 ML VIAL IV ONE (06:40)
[2018-12-27] MEDS ORDERED: Promethazine INJ(RESTRICTED)* 25 MG/ML 1 ML VIAL IV ONE (06:40)
[2018-12-27] MEDS: Buprenorphine TAB* 8 MG PO SCH ×4 (09:42→20:18)
[2018-12-27] MEDS ORDERED: OBEPIDURAL* 250 ML EPIDURAL ONE (11:50)
[2018-12-27] MEDS ORDERED: Oxytocin in LR* 20 UNITS/1,000 ML BAG IVPB SCH (12:00)
[2018-12-27] MEDS ORDERED: Sodium Citrate/Citric Acid* 15 ML UDC PO PRN (12:27)
[2018-12-27] MEDS ORDERED: Famotidine TAB* 20 MG PO PRN (12:27)
[2018-12-27] MEDS ORDERED: Lactated Ringers 1000 ML Bag* 1,000 ML IV ONE (12:27)
[2018-12-27] MEDS ORDERED: EPHEDrine (Pressors)* 50 MG/ML VIAL IV PUSH PRN ×2 (12:27)
[2018-12-27] MEDS ORDERED: Phenylephrine 40 MCG/ML SYRINGE IV PUSH PRN ×2 (12:27)
--- NOTE | 2018-12-27 12:42 | PN ---
Progress Note - Progress Note Date of Service: 12/27/18 Note: 33 YO P0 AT 39+ WEEKS WITH +ROM+ AT 11PM Lst night. amanged by media professional overnight with cervidil and 2 doses of nubain. Could not examine patient this am due to pain. suggested epidural as plan is to keep induction going until delivery and apin has been difficult to manage , Patient in agreement . epidural placed. ve 1-2 /80%/ -2 on exam clear fluid noted with amnihook.fhr 135 with moderate variability and occasional early deceleration. Discussed continued induction with pitocin. pt understands and is in agreement. Chriss Barragan Md
[2018-12-27] MEDS ORDERED: Lactated Ringers 1000 ML Bag* 1,000 ML IV SCH (13:00)
[2018-12-27] MEDS ORDERED: OBEPIDURAL* 250 ML EPIDURAL SCH (13:00)
[2018-12-28] MEDS ORDERED: ceFOXitin 2 GM IVPREMIX* 2 GM/50 ML BAG IVPB ONE (00:07)
[2018-12-28] MEDS ORDERED: Sodium Citrate/Citric Acid* 15 ML UDC PO ONE (00:07)
[2018-12-28] MEDS ORDERED: Sodium Citrate/Citric Acid* 15 ML UDC ONE (00:07)
[2018-12-28] MEDS ORDERED: ceFOXitin 2 GM IVPREMIX* 2 GM/50 ML BAG ONE (00:08)
[2018-12-28] MEDS ORDERED: Phenylephrine 40 MCG/ML SYRINGE ONE (00:37)
[2018-12-28] MEDS ORDERED: Ondansetron INJ* 2 MG/ML VIAL ONE (00:37)
[2018-12-28] MEDS ORDERED: fentaNYL* 50 MCG/ML 2 ML VIAL (100 MCG VIAL) ONE ×2 (00:38→02:25)
[2018-12-28] MEDS ORDERED: Morphine PF AMP (0.5MG/ML)* 5 MG/10 ML AMP ONE (00:38)
[2018-12-28] MEDS ORDERED: OXYTOCIN* 10 UNITS/ML 1 ML VIAL ONE (01:41)
[2018-12-28] MEDS ORDERED: Nalbuphine* 10 MG/ML 1 ML VIAL IV PRN (02:06)
[2018-12-28] MEDS ORDERED: Metoclopramide IV* 5 MG/ML 2 ML VIAL IV PRN (02:06)
[2018-12-28] MEDS ORDERED: Naloxone* 0.4 MG/ML 1 ML VIAL IV PRN ×2 (02:06→02:10)
[2018-12-28] MEDS ORDERED: Ondansetron INJ* 2 MG/ML VIAL IV PRN (02:06)
[2018-12-28] MEDS ORDERED: oxyCODONE TAB* 5 MG TAB PO PRN (02:10)
[2018-12-28] MEDS ORDERED: fentaNYL* 50 MCG/ML 2 ML VIAL (100 MCG VIAL) IV PRN ×2 (02:10→03:16)
[2018-12-28] MEDS ORDERED: Dibucaine 1% 28.35 GM TUBE PR PRN (02:20)
[2018-12-28] MEDS ORDERED: Witch Hazel PAD* JAR TOPICAL PRN (02:20)
[2018-12-28] MEDS ORDERED: Glycerin ADULT SUPP PR PRN (02:20)
[2018-12-28] MEDS ORDERED: oxyCODONE/Acetamin 5/325 MG* TAB PO PRN ×2 (02:20→18:08)
[2018-12-28] MEDS: Ketorolac INJ* 30 MG/ML 1 ML VIAL IV SCH ×4 (02:48→20:31)
[2018-12-28] MEDS ORDERED: Acetaminophen IV 1GM/100ML * 100 ML ONE (02:52)
[2018-12-28] MEDS ORDERED: Oxytocin in LR* 20 UNITS/1,000 ML BAG IVPB SCH (03:00)
[2018-12-28] MEDS: Gabapentin CAP(*) 300 MG PO SCH ×3 (03:02→22:56)
[2018-12-28] MEDS ORDERED: Promethazine INJ(RESTRICTED)* 25 MG/ML 1 ML VIAL IV ONE (03:21)
[2018-12-28] MEDS ORDERED: Buprenorphine TAB* 2 MG TAB.SL PO ONE (03:30)
[2018-12-28] MEDS ORDERED: Buprenorphine TAB* 2 MG TAB.SL PO SCH (03:30)
[2018-12-28] MEDS ORDERED: Bupivacaine 0.5% SDV PF* 30ML VIAL ONE (03:31)
--- NOTE | 2018-12-28 03:59 | PN ---
Progress Note - Progress Note Date of Service: 12/28/18 Note: called by Dr Mishra to place local anesthestetic in incision for better pain control. patient in agreement . incision infiltrated with 30 cc 0.5% bupivicaine in skin around incsion. pt tolerated well and got good relief
--- NOTE | 2018-12-28 04:07 | OP ---
DATE OF OPERATION: 12/28/18 - ROOM #108 DATE OF : 83 SURGEON: Dr. Elver Barragan. DAIRY FARM MANAGER: Tay Abraham CNM. ANESTHESIA: Spinal with Duramorph. PRE-OP DIAGNOSES: Arrested dilation and descent. POST-OP DIAGNOSES: Arrested dilation and descent. OPERATIVE PROCEDURE: Low transverse section. COMPLICATIONS: None. ESTIMATED BLOOD LOSS: 600 cc. FINDINGS: Include a viable male. Apgars 9 and 9, weight was 7 pounds 1 ounce. Normal-appearing uterus, fallopian tubes, and ovaries. INDICATIONS: This a 33-year-old 1, para 0 who had spontaneous rupture of membranes at 11:30 on 12/26/18 and was started on Cervidil. This was removed at approximately noon with starting Pitocin and she progressed from 1 cm up to 5 cm. She did not progress beyond 5 cm for over 5 hours, and decision at that point was made to proceed with section. At the time of section, the above findings were noted. DESCRIPTION OF PROCEDURE: The patient was identified and procedure was identified as a low transverse section. The patient was taken to the operating room, prepped and draped in the usual fashion in the left lateral recumbent position under epidural anesthesia. A Pfannenstiel incision was made in the abdomen and carried down through fat, fascia, and peritoneum. A transverse incision was made in the low uterine segment and extended laterally using blunt dissection. The above infant was delivered through the incision with ease. Nuchal cord was noted x1. The cord was doubly clamped and cut, and the infant was handed to the waiting service agent. Cord blood was obtained. The placenta was delivered spontaneously. The uterus was wiped out with a wet lap sponge. The uterine incision was then closed using 0 Polysorb in a running fashion. A second layer was used to imbricate the first layer. Good hemostasis was verified. The uterus was placed back into the abdominal cavity. The gutters were wiped out with a wet lap sponge. The peritoneum was then closed using 3-0 Polysorb in a running fashion. Good hemostasis was achieved in the subrectus layers. The fascia was closed using 0 Polysorb in a running fashion. Hemostasis was achieved in the subcu. Copious irrigation was utilized and suctioned out. The skin was closed with 4-0 Monocryl in a subcuticular fashion. All sponge and instrument counts were correct. The patient returned to the recovery room in stable condition. [id number]/[facility] #: [id number] [facility]
[2018-12-28] MEDS: oxyCODONE TAB* 5 MG TAB PO PRN ×2 (05:02→09:36)
[2018-12-28] MEDS: Acetaminophen TAB* 325 MG PO SCH ×4 (05:16→17:47)
[2018-12-28 05:37] LABS: Urine Benzodiazepine Screen None Detected (None Detect); Urine Opiates Screen None Detected (None Detect)
[2018-12-28] MEDS: Buprenorphine TAB* 8 MG SL SCH ×3 (08:27→20:30)
[2018-12-28] MEDS: Docusate CAP* 100 MG PO SCH ×3 (08:29→20:30)
[2018-12-28] MEDS: Simethicone TAB* 80 MG TAB.CHEW PO SCH ×4 (08:29→20:30)
[2018-12-28] MEDS: diPHENhydraMINE PO* 50 MG PO PRN (09:37)
[2018-12-28] MEDS: BuPROPion XL* 150 MG TAB.XL PO SCH (12:44)
[2018-12-28] MEDS ORDERED: Zolpidem TAB* 5 MG PO PRN (18:08)
[2018-12-29] MEDS: oxyCODONE/Acetamin 5/325 MG* TAB PO PRN ×6 (00:09→21:10)
[2018-12-29] MEDS: Ibuprofen TAB* 600 MG PO SCH ×3 (03:06→14:48)
[2018-12-29] MEDS: diPHENhydraMINE PO* 50 MG PO PRN (03:50)
[2018-12-29] MEDS: Buprenorphine TAB* 8 MG SL SCH ×5 (03:50→21:09)
[2018-12-29 06:10] LABS: ABS Eosinophils 0.2 10^3/ul (0-0.6); ABS Lymphocytes 2.4 10^3/ul (1.0-4.8); ABS Monocytes 1.1 10^3/ul (0-0.8); ABS Neutrophils 9.8 10^3/ul (1.5-7.7); Eosinophil % 1.8 %; Hematocrit 30 % (35-47); Hemoglobin 10.5 g/dL (12.0-16.0); Lymphocyte % 17.7 %; Mean Corpuscular HGB Conc 35 g/dL (31-36); Mean Corpuscular Hemoglobin 34 pg (27-31); Mean Corpuscular Volume 98 fL (80-97); Mean Platelet Volume 9.1 fL (7.4-10.4); Platelet Count 204 10^3/uL (150-450); Red Cell Distribution Width 13 % (10-15); White Blood Count 13.5 10^3/uL (3.5-10.8)
[2018-12-29] MEDS: BuPROPion XL* 150 MG TAB.XL PO SCH (08:48)
[2018-12-29] MEDS: Simethicone TAB* 80 MG TAB.CHEW PO SCH ×4 (08:48→21:09)
[2018-12-29] MEDS: Docusate CAP* 100 MG PO SCH ×3 (08:48→21:09)
[2018-12-29] MEDS ORDERED: Ferrous Gluconate TAB* 324 MG TAB PO SCH (09:00)
[2018-12-29] MEDS: Gabapentin CAP(*) 300 MG PO SCH (12:58)
[2018-12-29] MEDS ORDERED: Ketorolac INJ* 30 MG/ML 1 ML VIAL ONE (14:40)
[2018-12-29] MEDS ORDERED: Ketorolac INJ* 30 MG/ML 1 ML VIAL IV PUSH PRN (15:08)
--- NOTE | 2018-12-29 16:04 | PN ---
Progress Note - Progress Note Date of Service: 12/29/18 Note: [SUBJECTIVE Pt doing OK this afternoon. POD#1 s/p pLTCS for Arrest of Dilation/Arrest of Descent after presenting with PROM. Pt has history of opiod abuse and is on maintenance therapy with subutex. Post operative course has been complicated by poor pain control. Appears to be more comfortable and does better when given Subutex 8mg QID and routine Tylenol, Motrin or Toradol and Percocet. Tolerating regular diet. Guillen out and voiding spontaneously. Has not been keeping baby in room, but instead asking nurses to care for baby, as she feels that she is so pre-occupied with her own discomforts that she is not able to adequately attend to baby. Denies fever, chills, n/v/d, cp, sob. ] Objective: [AVSS, afebrile, hemodynamically stable Gen: nad, aaox3 CV: RRR Pulm: CTABL Abd: soft, nd, mildly ttp, no rebound, no guarding, fundus firm below the Umbilicus Incision: c/d/i with sutures and steris Ext: warm, nttp, neg shila's, SCD's on and inflating : guillen out, voiding spontaneously, UOP adequate Assessment/Plan: 33 y/o POD#1 s/p pLTCS for arrest of dilation/arrest of descent, post operative course complicated by poor pain control in the context of hx of opioid abuse on maintenance therapy with Subutex: - AVSS, afebrile, hemodynamically stable - post op H/H 10.5/30 - Post Operative Pain - pain control medications have been optimized to their highest safe doses including Subutex 8mg QID, Routine Tylenol, Toradol, Neurontin and Percocet. Will discontinue IV and Toradol and transition to Motrin tomorrow AM. - Hx of Opiod Abuse - pt on maintenance therapy with Subutex, dose increased to improve pain control. Consult placed to Hospitalist regarding continue maintenance therapy, pain control in the context of post operative state. - SW Consult secondary to hx of opiod abuse, on maintenance therapy and questionable poor maternal bonding. Mother encouraged to hold baby and keep in room with support of nurses as needed. Nursing staff closely monitoring and monitoring baby for withdrawal in coordination with pediatrics service. - Breast Feeding/Pumping encouraged - Guillen out - s/p spontaneous void - Tolerating regular diet - Incision c/d/i with sutures and steris - Continue routine post-operative care Aniket Clemente DO OBGEORGES
--- NOTE | 2018-12-29 20:59 | CONS ---
CC: Dr. Elayne Rudd MEDICAL CONSULTATION: DATE OF CONSULT: 12/29/18 HISTORY OF PRESENT ILLNESS: This 33-year-old woman presented in labor and had a C- section at about 1:30 in the morning on 12/28/18. As she has been maintained on buprenorphine for several years, cons ultation was requested for management of her pain and pain medication. After the , the patient's buprenorphine dose was doubled to 32 mg per day in 4 divided doses . She has been treated for quite some time with 16 mg a day in divided doses by Dr. Washington and Dr. Berna esquivel as an outpatient. She was also taking gabapentin and bupropion, both of which medications have b een continued. PAST MEDICAL AND SURGICAL HISTORY: 1. She had foot surgery in the past. 2. She was treated for hepatitis C with good results. 3. She had MRSA bacteremia a few years ago. 4. This is the patient's first . FAMILY HISTORY: Both parents are , the mother of diabetes and the father of heart disea se and lung cancer. SOCIAL HISTORY: She smokes cigarettes. She does not abuse alcohol. Her healthcare proxy is Elisa Maile oliveros, who was in the room with her. REVIEW OF SYSTEMS: A 14-point review of systems was otherwise unremarkable. She has gained 30 to 35 pounds during the . PHYSICAL EXAMINATION: Blood pressure was 121/70 this morning, pulse 88. She is a well-developed, we ll-nourished young woman, sitting in a chair. She is in good spirits. She appears comfortable. HAI NT: Unremarkable. Pupils equal and round. Neck is supple. There is no JVD, adenopathy, or thyromeg renetta. Lungs are clear to auscultation and percussion. I did not examine her abdomen. There was no p edal edema or calf tenderness. ASSESSMENT AND PLAN: I agree with the present management of her pain and pain medications. I reinfo rce the expectation that in 2 more days and she is discharged on 12/31/18, the pain will have improved and possibly she could get by on the dose of buprenorphine she had been on before. If not, then she could taper; as she is taking 16 tablets a day, it would not be difficult to taper down to 8 tablets a day over a few days to a week. This could be managed as an outpatient and will probably be best handled by Dr. Rudd as she will be the one with the continuous provider relationship in the future. Thank you for allowing me to see your patient in consultation. [id number]/[facility] #: [id number]
[2018-12-30] MEDS: Gabapentin CAP(*) 300 MG PO SCH ×3 (02:02→21:25)
[2018-12-30] MEDS: oxyCODONE/Acetamin 5/325 MG* TAB PO PRN ×3 (08:34→19:57)
[2018-12-30] MEDS: Buprenorphine TAB* 8 MG SL SCH ×3 (08:35→19:56)
[2018-12-30] MEDS: Simethicone TAB* 80 MG TAB.CHEW PO SCH ×3 (08:35→19:57)
[2018-12-30] MEDS: Ibuprofen TAB* 600 MG PO SCH ×4 (08:36→22:52)
[2018-12-30] MEDS: Docusate CAP* 100 MG PO SCH ×3 (08:36→19:57)
[2018-12-30] MEDS: BuPROPion XL* 150 MG TAB.XL PO SCH (08:41)
[2018-12-30] MEDS: Acetaminophen TAB* 325 MG PO PRN (12:11)
--- NOTE | 2018-12-30 13:26 | PN ---
Progress Note - Progress Note Date of Service: 12/30/18 Note: SUBJECTIVE Pt appears to be doing better today. POD#2 s/p pLTCS for Arrest of Dilation/ Arrest of Descent after presenting with PROM. Pt has history of opiod abuse and is on maintenance therapy with subutex. Post operative course has been complicated by poor pain control, but her pain control appears to be much improved this afternoon. She reports doing much better overnight and getting much more rest. IV discontinued this AM. Tolerating regular diet. Guillen out and voiding spontaneously. Has continued to not keep baby in room consistently but instead asking nurses to care for baby most of the time, but she does state today that she is trying to care for the baby and her goal today is to feel better about caring for baby in the room. Denies fever, chills, n/v/d, cp, sob. Objective: AVSS, afebrile, hemodynamically stable Gen: nad, aaox3 CV: RRR Pulm: CTABL Abd: soft, nd, mildly ttp, no rebound, no guarding, fundus firm below the Umbilicus Incision: c/d/i with sutures and steris, some slight ecchymosis noted, but no bleeding, drainage or signs of infection Ext: warm, nttp, neg shila's : guillen out, voiding spontaneously, UOP adequate Assessment/Plan: 33 y/o POD#2 s/p pLTCS for arrest of dilation/arrest of descent, post operative course complicated by poor pain control in the context of hx of opioid abuse on maintenance therapy with Subutex: - AVSS, afebrile, hemodynamically stable - post op H/H .5 - Post Operative Pain - pain control much improved. IV has been removed now. S/ P consult to hospitalist to assist with assessment and further intervention if needed in regards to continued maintenance therapy with subutex and adjusting this appropriately for pain control. Currently pain controlled on Subutex, Tylenol, Motrin and Percocet. Pt aware that goal is to be stable without need for PRN percocet at time of discharge. - Hx of Opiod Abuse - pt on maintenance therapy with Subutex, dose increased to improve pain control. S/P Hospitalist consult. - SW Consult secondary to hx of opiod abuse, on maintenance therapy and questionable poor maternal bonding. Mother encouraged to hold baby and keep in room with support of nurses as needed. Nursing staff closely monitoring and monitoring baby for withdrawal in coordination with pediatrics service. SW here to perform consult today. Mother is verbalizing greater interest in caring for baby today. - Breast Feeding/Pumping encouraged - Guillen out - s/p spontaneous void - Tolerating regular diet - Incision c/d/i with sutures and steris - Continue routine post-operative care Aniket Millern, OBGYN
[2018-12-31] MEDS: Buprenorphine TAB* 8 MG SL SCH ×3 (00:05→08:20)
[2018-12-31] MEDS ORDERED: Buprenorphine TAB* 8 MG SL SCH (00:30)
[2018-12-31] MEDS: Simethicone TAB* 80 MG TAB.CHEW PO SCH ×3 (02:35→12:33)
[2018-12-31] MEDS: Ibuprofen TAB* 600 MG PO SCH (08:25)
[2018-12-31] MEDS: BuPROPion XL* 150 MG TAB.XL PO SCH ×3 (08:28→09:57)
[2018-12-31] MEDS: Docusate CAP* 100 MG PO SCH (08:28)
[2018-12-31] MEDS: Gabapentin CAP(*) 300 MG PO SCH (09:53)
[2018-12-31] MEDS: Acetaminophen TAB* 325 MG PO PRN (09:53)
[2018-12-31 12:18] VITALS: BP 123/70
[2018-12-31] MEDS ORDERED: Buprenorphine TAB* 8 MG PO SCH (21:00)
== END 2018-12-31 12:30 | disposition home or self-care (01) | DRG 540 ==
LOC: MCHOBOUT 17:08 → MCHOB 18:55
PROVIDERS: ADMIT Midwife; ATTEND Obstetrics & Gynecology
PROC: 3E033VJ Introduction of Other Hormone into Peripheral Vein, Percutaneous Approach (ICD-10-PCS; 2018-12-28)
PROC: 10D00Z1 Extraction of Products of Conception, Low, Open Approach (ICD-10-PCS; principal; 2018-12-28 00:47)
DX: O99.344 Other mental disorders complicating childbirth (principal); F41.9 Anxiety disorder, unspecified; O99.334 Smoking (tobacco) complicating childbirth; O69.81X0 Labor and delivery complicated by cord around neck, without compression, not applicable or unspecified; O62.0 Primary inadequate contractions; O32.4XX0 Maternal care for high head at term, not applicable or unspecified; F11.21 Opioid dependence, in remission; F14.21 Cocaine dependence, in remission; F12.21 Cannabis dependence, in remission; Z3A.39 39 weeks gestation of pregnancy; Z37.0 Single live birth
CPT/HCPCS: 36415; 80307; 84112; 85025; 85027; 86850; 86900; 86901; 87641; A9270-GY; J0694; J1885; J2300; J2405; J2550; J2590; J3010; J3490

== ENCOUNTER 2019-07-12 11:59 | Emergency (ER) | payer OTHER ==
[2019-07-12] MEDS ORDERED: Bupivacaine 0.5%* 50 ML MDV VIAL INJ ONE (12:25)
[2019-07-12] MEDS ORDERED: Lidocaine 1% INJ* 10 MG/ML 30 ML SDV INJ ONE (12:26)
[2019-07-12 12:48] LABS: Urine Appearance Cloudy; Urine Bilirubin Negative (Negative); Urine Blood 2+ (Negative); Urine Color Yellow; Urine Glucose Negative (Negative); Urine Ketones Negative (Negative); Urine Nitrite Negative (Negative); Urine Protein Negative (Negative); Urine Specific Gravity 1.021 (1.010-1.030); Urine Urobilinogen Negative (Negative)
[2019-07-12 12:56] LABS: Urine Bacteria 1+ (Absent); Urine Red Blood Cell 3+(>10/hpf) (Absent); Urine Squamous Epithelial Cell Present (Absent); Urine White Blood Cell Trace(0-5/hpf) (Absent)
[2019-07-12] MEDS ORDERED: Bupivacaine 0.5% PF 10 ML SDV VIAL INJ ONE (13:00)
[2019-07-12] MEDS ORDERED: Bupivacaine 0.5% SDV PF* 30ML VIAL INJ ONE (13:00)
[2019-07-12] MEDS ORDERED: Cyclobenzaprine TAB* 10 MG PO ONE (13:02)
--- NOTE | 2019-07-12 13:25 | ED ---
Complex/Multi-Sys Presentation - HPI Summary HPI Summary: 34-year-old female with no significant past medical history presents to the emergency department today with chief complaint of 10 out of 10 neck pain which she describes as "it feels like a refrigerator is sitting on my back" which she has had for approximately 4 weeks. Patient has full range of motion and denies any radiculopathy or numbness and tingling. Patient denies history of trauma. Patient is extremely anxious on arrival in the emergency department. Patient states she has been taking naproxen for relief of her pain. Patient also complains of pain with urination and believe she has a UTI. Patient was sent here by her primary care provider for further evaluation and management. Triage note states patient is here for COVID rule out an influenza-like illness however patient denies upper respiratory symptoms including fever, sore throat, nasal congestion, cough, chest pain, shortness of breath, abdominal pain, nausea and vomiting and diarrhea. Patient endorses history of smoking. - History Of Current Complaint Chief Complaint: EDFluSymptoms Time Seen by Provider: 07/12/19 12:06 Hx Obtained From: Patient Onset/Duration: Gradual Onset Timing: Constant Severity Currently: Severe Severity Initially: Severe Associated Signs And Symptoms: Positive: Headache, Dysuria. Negative: SOB, Cough, Chest Pain, Nausea, Vomiting, Diarrhea, Back Pain, Fever - Allergies/Home Medications Allergies/Adverse Reactions: Allergies Allergy/AdvReac Type Severity Reaction Status Date / Time No Known Allergies Allergy Verified 04/26/18 08:29 Home Medications: Home Medications Bupropion XL* [Wellbutrin XL *] 150 mg PO DAILY tab 12/31/18 [Rx Confirmed ] Calcium Carbonate CHEW TAB* [Tums*] 1,000 mg PO DAILY 07/12/19 [History Confirmed 07/12/19] Cyclobenzaprine TAB* [Flexeril 10 MG TAB*] 10 mg PO TID PRN #12 tab 07/12/19 [Rx ] Docusate CAP* [Colace Cap*] 100 mg PO BID PRN 07/12/19 [History Confirmed ] Gabapentin TAB(NF) [Neurontin 600 mg TAB(NF)] 1,200 mg PO BEDTIME 07/12/19 [ History Confirmed 07/12/19] Gabapentin TAB(NF) [Neurontin 600 mg TAB(NF)] 600 mg PO BID 07/12/19 [History Confirmed 07/12/19] Magnesium CITRATE* [Citrate of Magnesia*] 300 ml PO ONCE PRN 07/12/19 [History Confirmed 07/12/19] Nicotine GUM* (NF) [Nicotine GUM*] 2 mg PO Q2H PRN 07/12/19 [History Confirmed 07/12/19] Omeprazole CAP (NF) [Prilosec CAP* 20 MG] 20 mg PO BID 07/12/19 [History Confirmed 07/12/19] Polyethylene Glycol 3350* [Miralax (17 GM DOSE TUCKER)] 17 gm PO DAILY 07/12/19 [ History Confirmed 07/12/19] Idh684/Iron/Folic/Dha [ Formula-Dha Softgel] 1 each PO DAILY [History Confirmed 07/12/19] hydrOXYzine HCL TAB* [Atarax 25 MG TAB*] 25 mg PO QPM PRN 07/12/19 [History Confirmed 07/12/19] PMH/Surg Hx/FS Hx/Imm Hx Endocrine/Hematology History: Denies: Hx Diabetes, Hx Thyroid Disease, Hx Anemia Cardiovascular History: Denies: Hx Congestive Heart Failure, Hx Hypertension, Hx Pacemaker/ICD Respiratory History: Denies: Hx Asthma, Hx Chronic Bronchitis - had bronchitis twice, Hx Chronic Obstructive Pulmonary Disease (COPD) GI History: Reports: Other GI Disorders - Takes Protonix Denies: Hx Ulcer History: Reports: Hx Kidney Infection - at age 15 or so, not in years Denies: Hx Renal Disease Comment Only: Other Problems/Disorders - Recent UTI Musculoskeletal History: Reports: Other Musculoskeletal History - knees and foot have cartilage problems Sensory History: Denies: Hx Contacts or Glasses Opthamlomology History: Denies: Hx Contacts or Glasses Psychiatric History: Reports: Hx Anxiety, Hx Depression, Hx Post Traumatic Stress Disorder, Hx Suicide Attempt, Hx Substance Abuse - heroin; cocaine Denies: Hx Attention Deficit Hyperactivity Disorder, Hx Eating Disorder, Hx Panic Disorder, Hx Inpatient Treatment, Hx Community Mental Health Tx, Hx Schizophrenia, Hx Bipolar Disorder, Hx of Violent Episodes Against Others, Other Psychiatric Issues/Disorders - Surgical History Surgery Procedure, Year, and Place: Bone spurs and bunion removed on feet. Infectious Disease History: No Infectious Disease History: Reports: Hx Hepatitis - type C, Hx of Known/ Suspected MRSA - in [facility] Denies: Hx Human Immunodeficiency Virus (HIV), Traveled Outside the [place] in Last 30 Days - Family History Known Family History: Positive: Cardiac Disease - CVA, Hypertension, Diabetes, Other - lung cancer - Social History Alcohol Use: None Alcohol Amount: one beer every other night Substance Use Type: Reports: Cocaine, Heroin, Marijuana Substance Use Comment - Amount & Last Used: history of use Smoking Status (MU): Heavy Every Day Tobacco Smoker Type: Cigarettes Amount Used/How Often: pack per day Length of Time of Smoking/Using Tobacco: 13 years Have You Smoked in the Last Year: Yes Review of Systems Constitutional: Negative Eyes: Negative ENT: Negative Cardiovascular: Negative Respiratory: Negative Gastrointestinal: Negative Positive: dysuria. Negative: flank pain, hematuria, incontinence, urgency Musculoskeletal: Negative Negative: Edema Skin: Negative Positive: Headache. Negative: Weakness, Paresthesia, Numbness, Syncope, Slurred Speech Positive: Anxious. Negative: Depressed All Other Systems Reviewed And Are Negative: Yes Physical Exam - Summary Physical Exam Summary: Patient has full range of motion of the neck. Patient is extremely anxious in the exam room with poor posture. Patient has tense bulging muscles to the right lateral paraspinal muscles of the cervical spine as well as the latissimus dorsi muscle in the right. No erythema, ecchymosis, edema noted. No evidence trauma. No pain with palpation. Patient is extremely tearful while giving history and physical and very anxious. Triage Information Reviewed: Yes Vital Signs On Initial Exam: Initial Vitals Temp Pulse Resp BP Pulse Ox 97.8 F 64 18 127/84 100 07/12/19 12:40 07/12/19 12:40 07/12/19 12:40 07/12/19 12:40 07/12/19 12:40 Vital Signs Reviewed: Yes Appearance: Positive: Well-Appearing, No Pain Distress, Well-Nourished Skin: Positive: Warm, Skin Color Reflects Adequate Perfusion Eyes: Positive: EOMI, YOLANDA ENT: Positive: Hearing grossly normal Respiratory/Lung Sounds: Positive: Clear to Auscultation, Breath Sounds Present Cardiovascular: Positive: RRR, S1, S2 Musculoskeletal: Positive: Strength/ROM Intact Neurological: Positive: Sensory/Motor Intact, Alert, Oriented to Person Place, Time, Normal Gait, Facial Symmetry, Speech Normal Psychiatric: Positive: Affect/Mood Appropriate, Anxious AVPU Assessment: Alert Procedures - Sedation Patient Received Moderate/Deep Sedation with Procedure: No Diagnostics - Vital Signs Vital Signs Temp Pulse Resp BP Pulse Ox 07/12/19 12:40 97.8 F 64 18 127/84 100 - Laboratory Lab Results: Lab Results 07/12/19 Range/Units 12:32 Urine Color Yellow Urine Appearance Cloudy Urine pH 6.0 (5-9) Ur Specific [place] 1.021 (1.010-1.030) Urine Protein Negative (Negative) Urine Ketones Negative (Negative) Urine Blood 2+ A (Negative) Urine Nitrate Negative (Negative) Urine Bilirubin Negative (Negative) Urine Urobilinogen Negative (Negative) Ur Leukocyte Esterase Negative (Negative) Urine WBC (Auto) Trace(0-5/hpf) (Absent) Urine RBC (Auto) 3+(>10/hpf) A (Absent) Ur Squamous Epith Cells Present A (Absent) Urine Bacteria 1+ A (Absent) Urine Glucose Negative (Negative) Urine Ascorbic Acid * A (Negative) Lab Statement: Any lab studies that have been ordered have been reviewed, and results considered in the medical decision making process. Complex Multi-Symp Course/Dx Course Of Treatment: Patient was evaluated in the emergency department today for neck pain and pain in urination. Vitals noted and stable. Patient was extremely anxious in the emergency department. Physical exam was consistent with the latissimus dorsi muscle strain on the right as well as cervical paraspinal muscle strain. Patient was given trigger point injection using 1% lidocaine without epinephrine and 0.5% bupivacaine which significantly reduced the patient's symptoms. Patient also complained of burning with urination however she had a negative urinalysis is not suggestive for UTI however there was +1 blood. Patient was given 10 mg Flexeril in the emergency department for further relaxation of her neck muscles as well as prescription to take this as an outpatient. After treatment and prior to discharge patient became extremely agitated and began yelling at staff and became very tearful. Patient left the emergency department prior to receiving her Flexeril. Pt discharged to outpatient follow-up. - Diagnoses Differential Diagnoses/HQI/PQRI: Metabolic Abnormality, Urinary Tract Infection Provider Diagnoses: Neck pain - Critical Care Time Critical Care Statement: Critical care time is provided exclusive of any time spent performing procedures. Discharge ED - Sign-Out/Discharge Documenting (check all that apply): Patient Departure - Discharge Plan Condition: Stable Disposition: HOME Prescriptions: Cyclobenzaprine TAB* [Flexeril 10 MG TAB*] 10 mg PO TID PRN #12 tab PRN Reason: Pain - Moderate Patient Education Materials: Neck Pain (ED) Referrals: Elayne Rudd MD [Primary Care Provider] - 3 Days Additional Instructions: Please take ibuprofen 600 mg every 6 hours as needed for pain. Please be sure to use heat to relax muscles of the neck. Please be sure to stretch your neck and to have correct posture. Please take muscle relaxers as directed and do not drive while using them. Please follow-up with your primary care provider for further evaluation and management in 3-5 days. Please return to the emergency department immediately should you develop any new or worsening symptoms. - Billing Disposition and Condition Condition: STABLE Disposition: Home
[2019-07-12 13:34] VITALS: BP 0/0
--- NOTE | 2019-07-15 10:54 | ED ---
Imaging and Labs Follow Up Follow Up Type: Labs/Cultures Labs/Culture Result: Urine culture final grew Escherichia coli 100,000 Patient Communication/Plan: Patient was placed on Keflex prior to discharge Patient Communication/Plan: Ssensitive to organism, nothing further required Provider Diagnoses: Neck pain
== END 2019-07-12 13:33 | disposition home or self-care (01) ==
LOC: ED 11:59
DX: M54.2 Cervicalgia (principal); F41.9 Anxiety disorder, unspecified; F32.9 Major depressive disorder, single episode, unspecified; F43.10 Post-traumatic stress disorder, unspecified; F17.210 Nicotine dependence, cigarettes, uncomplicated
CPT/HCPCS: 81003; 81015; 87077; 87086; 87186; 96374; 96375; 99282; J3490